=== PATIENT | male | born 1930 | race Caucasian/White ===

== ENCOUNTER 2017-03-06 08:45 | Emergency (ER) | payer OTHER ==
[~2017-03-06] VITALS: Ht 170.2 cm; Wt 83.9 kg
[~2017-03-06 08:45] MED LIST: ADVAIR 250-501 EACH INH; ALBUTEROL SULFAT3 M1 INH; AZITHROMYCIN250 MG PO; CENTRUM SILVER1 EAC3 PO; COUMADIN 2.5 M2.5 MG PO; COUMADIN 5 MG TA5 MG PO; COZAAR25 M1 PO; DEPO-TESTADIOL10 ML IM; FOLIC ACID1 M1 PO; LANSOPRAZOLE30 M2 PO; LASIX40 M1 PO; LOPRESSOR50 M1 PO; METHOTREXATE2.5 M2 PO; METHOTREXATE2.5 MG PO; NORVASC5 M1 PO; OSTEO BI-FLEX1 EAC1 PO; PRAVASTATIN SOD10 M2 PO; PREDNISONE10 MG PO; PREDNISONE5 M1 PO; PROAIR HFA8.5 GM INH; SYMBICORT 160/41 PUF INH; TUDORZA PR400 MCG/Ac INH; TUDORZA PRESS400 MCG IH; VALIUM2 MG PO; VICODIN5-300 PO; WARFARIN SODIUM2 MG PO; WARFARIN SODIUM5 M1 PO; [UNRECOGNIZED DRUG - REMARK]
[2017-03-06 08:52] VITALS: BP 156/81
--- NOTE | 2017-03-06 10:21 | RADIOLOGY REPORT ---
EXAMINATION: XR KNEE, LEFT CLINICAL INFORMATION: 86-year-old man with left knee pain. COMPARISON: None TECHNIQUE: Four views of the left knee. FINDINGS: There is no evidence of acute fracture. Alignment remains anatomic. There is extensive degenerative tricompartment osteophytosis as well as moderate loss of normal articular cartilage space. There is a moderate suprapatellar effusion and there may be some prepatellar swelling as well. IMPRESSION: No evidence of acute fracture or dislocation. Chronic osteoarthritic changes.
[2017-03-06] MEDS ORDERED: TROSPIUM CHLORI60 M1 PO (10:23)
[2017-03-06] MEDS ORDERED: COUMADIN2.5 M1 PO (10:24)
[2017-03-06] MEDS ORDERED: OXYBUTYNIN CHLO10 M1 PO (10:24)
--- NOTE | 2017-03-06 10:44 | ED UPPER/LOWER EXTREMITY COMPL ---
History of Present Illness General Chief Complaint: Laceration Procedure Stated Complaint: LAC TO LEG, BLEEDING SINCE LAST PM,ON THINNERS Source: patient, family Exam Limitations: no limitations Vital Signs & Intake/Output Vital Signs & Intake/Output Vital Signs Date Time Temp Pulse Resp B/P B/P Pulse O2 O2 Flow FiO2 Mean Ox Delivery Rate 03/06 0852 97.0 71 20 156/81 94 Room Air Allergies Coded Allergies: NO KNOWN ALLERGIES (02/05/15) Reconcile Medications Aclidinium [place] (Tudorza Pressair) 400 MCG AER.POW.BA 1 PUFF IH QPM COPD ( Reported) Albuterol Sulfate (Proair Hfa) 90 MCG HFA.AER.AD 2 PUF INH Q4-6 PRN PRN SHORTNESS OF BREATH (Reported) Amlodipine Besylate (Norvasc) 5 MG TABLET 1 TAB PO DAILY HEART (Reported) Fluticasone/Salmeterol (Advair 250-50 Diskus) 250 MCG-50 MCG/DOSE BLST.W.DEV 1 PUF INH BID COPD (Reported) Folic Acid 1 MG TABLET 1 TAB PO DAILY VITAMIN SUPPORT (Reported) Furosemide (Lasix) 40 MG TABLET 1 TAB PO DAILY WATER RETENTION (Reported) Lansoprazole 30 MG CAPSULE.DR 1 CAP PO DAILY GI (Reported) Losartan Potassium (Cozaar) 25 MG TABLET 0.5 TAB PO DAILY HEART (Reported) Methotrexate 2.5 MG TABLET 2 TAB PO QMON ARTHRITIS (Reported) Metoprolol Tartrate (Lopressor) 50 MG TABLET 1 TAB PO BID HEART (Reported) Multivit-Min/FA/Lycopen/Lutein (Centrum Silver Tablet) 0.4 MG-300 MCG-250 MCG TABLET 1 TAB PO DAILY SUPPLEMENT (Reported) Oxybutynin Chloride (Oxybutynin Chloride ER) 10 MG TAB.ER.24 1 TAB PO DAILY BLADDER (Reported) Pravastatin Sodium 10 MG TABLET 1 TAB PO DAILY CHOLESTEROL (Reported) Prednisone 5 MG TABLET 1 TAB PO DAILY ARTHRITIS (Reported) Trospium Chloride (Trospium Chloride ER) 60 MG CAP.ER.24H 1 CAP PO DAILY UNKNOWN (Reported) Warfarin Sodium (Coumadin) 2.5 MG TABLET 1 TAB PO 1700 BLOOD THINNER ( Reported) Triage Note: PT TO ED C/O LAC TO LEFT LEG. SUSTAINED YESTERDAY. PT IS ON COUMADIN. DRESSING APPLIED AT HOME LAST NIGHT. PT CONTINUES TO BLEED. UNKNOWN LAST TETANUS SHOT. LAC NOT SEEN IN TRIAGE. Triage Nurses Notes Reviewed? yes Onset: Abrupt Duration: day(s): (yesterday afternoon) Timing: recent history Severity: moderate, severe Pain/Injury Location: Left: Knee. Method of Injury: laceration No Modifying Factors: none HPI: 86-year-old male comes into emergency room for further evaluation of laceration to left knee. Patient reports that yesterday he was working out in the yard and apparently hit his left knee. Small cut. Tetanus shot up-to-date. Patient comes in today for further evaluation. Denies any fever chills. Denies any trauma anywhere else. Denies any numbness or tingling in his lower leg. Patient is on Coumadin. Last INR was 2.7. Denies any other system symptoms. (ROCKY ROJO) Past History Travel History Traveled to [place] past 21 day No Medical History Any Pertinent Medical History? see below for history Neurological: NONE EENT: NONE Cardiovascular: AFIB, hypertension, hyperlipidemia Respiratory: COPD, obstructive sleep apnea, LUNG INFECTION WITH BREATHING DIFF S /P O2 AT NIGHT Gastrointestinal: NONE Hepatic: NONE Renal: NONE Musculoskeletal: LEFT TOTAL HIP REPLACE. 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 No (ROCKY ROJO) Review of Systems Review of Systems Constitutional: Reports: no symptoms. EENTM: Reports: no symptoms. Respiratory: Reports: no symptoms. Cardiovascular: Reports: no symptoms. Gastrointestinal/Abdominal: Reports: no symptoms. Genitourinary: Reports: no symptoms. Musculoskeletal: Reports: no symptoms. Skin: Reports: see HPI. Neurological/Psychological: Reports: no symptoms. Hematologic/Endocrine: Reports: see HPI. Immunological: Reports: no symptoms. All Other Systems: Reviewed and Negative (ROCKY ROJO) Physical Exam Physical Exam General Appearance: well developed/nourished, mild distress Head: atraumatic Eyes: Bilateral: normal appearance. Ears, Nose, Throat: normal ENT inspection, hearing grossly normal Neck: normal inspection Cardiovascular/Respiratory: no respiratory distress Back: normal inspection Knee Left: 1.5 cm laceration to left knee, superficial, Neurologic/Tendon: normal sensation, normal motor functions, normal tendon functions, responds to pain, no evidence tendon injury Skin: intact, normal color, warm/dry Lymphatic: no anterior cervical alli (HARIKA MANZANO,ROCKY) Progress Differential Diagnosis: contusion, dislocation, DVT, fracture, gout, septic arthritis, sprain Plan of Care: Orders Procedure Date/time Status Durable Medical Equipment 03/06 1050 Active Departure Departure Disposition: HOME OR SELF CARE Condition: Stable Clinical Impression Primary Impression: Laceration of left knee Secondary Impressions: Arthritis Referrals: PAULO DOLAN MD (PCP/Family) Additional Instructions: Return in 7 days for suture removal. Watch for signs of infection such as redness swelling discharge fever chills. Please go over all results of today's visit with your primary care doctor. Contact your primary care doctor to let them know you were here in the emergency room. There may be nonspecific findings which may not be related to your visit today here in the emergency room but may require further evaluation and chronic monitoring by your primary care doctor. If you had a laceration today the chance of foreign body always remains. You should follow-up with your primary care doctor for recheck in 3-5 days for a wound check. If you had an x-ray done there is a chance that a fracture could have been missed on initial read and you should follow-up with your primary care doctor for repeat x-rays if symptoms persist. If your blood pressure was elevated here in the emergency room please have rechecked by her primary care doctor within the next 48 hours by your primary care doctor. If you were prescribed a narcotic here in the emergency room or any type of controlled substances you're not allowed to drive while taking this medication or operate any type of heavy machinery. Narcotics can make you feel lightheaded dizziness nausea and can cause constipation. You may need to pick up driver a stool softener. Thank you for choosing [facility] emergency room. Please return to the emergency room immediately if you have any other concerns worsening of symptoms. Departure Forms: Customer Survey General Discharge Information Comments 03/06/2017 11:16:[address] stitch loosely [address] and left knee. Patient will return for suture removal. Follow-up for wound check. Watch for signs of infections. Clinically looks well.closed up Within a 24-hour time frame. (ROCKY ROJO) PA/CITIZEN PARTICIPATION SPECIALIST Co-Sign Statement Statement: ED Attending supervision documentation- [X] I saw and evaluated the patient. I have also reviewed all the pertinent lab results and diagnostic results. I agree with the findings and the plan of care as documented in the PA's/CITIZEN PARTICIPATION SPECIALIST's documentation. [X] I have reviewed the ED Record and agree with the PA's/CITIZEN PARTICIPATION SPECIALIST's documentation. [] Additions or exceptions (if any) to the PAs/CITIZEN PARTICIPATION SPECIALIST's note and plan are summarized below: [] (MARIIA CABRAL,CHRISTEN Bajwa) Procedures Laceration/Wound Repair Progress: 1.5 cm laceration to left knee, irrigated with peroxide and saline, 4. 0 nylon, one suture placed, sterile technique, Performed by PA student with my supervision (ROCKY ROJO)
== END 2017-03-06 11:13 ==
LOC: ERH 08:45
DX: S81.012A Laceration without foreign body, left knee, initial encounter (principal); M19.90 Unspecified osteoarthritis, unspecified site; W22.8XXA Striking against or struck by other objects, initial encounter; Y93.89 Activity, other specified; Y92.009 Unspecified place in unspecified non-institutional (private) residence as the place of occurrence of the external cause
CPT/HCPCS: 73562-LT

== ENCOUNTER 2017-03-13 09:16 | Emergency (ER) | payer OTHER ==
[~2017-03-13 09:16] MED LIST changes: +COUMADIN2.5 M1 PO; +OXYBUTYNIN CHLO10 M1 PO; +TROSPIUM CHLORI60 M1 PO
[2017-03-13 09:20] VITALS: BP 136/77
--- NOTE | 2017-03-13 09:46 | ED ANIMAL BITE/WOUND CHECK ---
History of Present Illness General Chief Complaint: Suture Removal/Wound Recheck Stated Complaint: SUTURE REMOVAL Source: patient, family, old records Exam Limitations: no limitations Vital Signs & Intake/Output Vital Signs & Intake/Output Vital Signs Date Time Temp Pulse Resp B/P B/P Pulse O2 O2 Flow FiO2 Mean Ox Delivery Rate 03/13 0920 97.4 92 18 136/77 95 Room Air Room Air (CHAUNCEY HERNANDES MD) Allergies Coded Allergies: NO KNOWN ALLERGIES (02/05/15) Reconcile Medications Aclidinium [place] (Tudorza Pressair) 400 MCG AER.POW.BA 1 PUFF IH QPM COPD ( Reported) Albuterol Sulfate (Proair Hfa) 90 MCG HFA.AER.AD 2 PUF INH Q4-6 PRN PRN SHORTNESS OF BREATH (Reported) Amlodipine Besylate (Norvasc) 5 MG TABLET 1 TAB PO DAILY HEART (Reported) Fluticasone/Salmeterol (Advair 250-50 Diskus) 250 MCG-50 MCG/DOSE BLST.W.DEV 1 PUF INH BID COPD (Reported) Folic Acid 1 MG TABLET 1 TAB PO DAILY VITAMIN SUPPORT (Reported) Furosemide (Lasix) 40 MG TABLET 1 TAB PO DAILY WATER RETENTION (Reported) Lansoprazole 30 MG CAPSULE.DR 1 CAP PO DAILY GI (Reported) Losartan Potassium (Cozaar) 25 MG TABLET 0.5 TAB PO DAILY HEART (Reported) Methotrexate 2.5 MG TABLET 2 TAB PO QMON ARTHRITIS (Reported) Metoprolol Tartrate (Lopressor) 50 MG TABLET 1 TAB PO BID HEART (Reported) Multivit-Min/FA/Lycopen/Lutein (Centrum Silver Tablet) 0.4 MG-300 MCG-250 MCG TABLET 1 TAB PO DAILY SUPPLEMENT (Reported) Oxybutynin Chloride (Oxybutynin Chloride ER) 10 MG TAB.ER.24 1 TAB PO DAILY BLADDER (Reported) Pravastatin Sodium 10 MG TABLET 1 TAB PO DAILY CHOLESTEROL (Reported) Prednisone 5 MG TABLET 1 TAB PO DAILY ARTHRITIS (Reported) Trospium Chloride (Trospium Chloride ER) 60 MG CAP.ER.24H 1 CAP PO DAILY UNKNOWN (Reported) Warfarin Sodium (Coumadin) 2.5 MG TABLET 1 TAB PO 1700 BLOOD THINNER ( Reported) Triage Note: TRIAGE: 86 Y/O MALE PRESENTS FOR REMOVAL OF 1 SUTURE PLACED 1 WEEK AGO. SITE APPEARS TO BE HEALING AT PRESENT. Triage Nurses Notes Reviewed? yes Onset: Last week Duration: better Timing: recent history Injury Environment: home Is Injury an Animal Bite? No Severity: mild No Modifying Factors: none HPI: Days prior to admission patient sustained laceration to left salgado requiring suture. There was no fever chills nausea vomiting diarrhea abdominal pain chest pain shortness of breath headache dysuria bleeding wound dehiscence discharge. Past History Travel History Traveled to [place] past 21 day No Medical History Any Pertinent Medical History? see below for history Neurological: NONE EENT: NONE Cardiovascular: AFIB, hypertension, hyperlipidemia Respiratory: COPD, obstructive sleep apnea, LUNG INFECTION WITH BREATHING DIFF S /P O2 AT NIGHT Gastrointestinal: NONE Hepatic: NONE Renal: NONE Musculoskeletal: LEFT TOTAL HIP REPLACE. 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 No Review of Systems Review of Systems Constitutional: Reports: no symptoms. EENTM: Reports: no symptoms. Respiratory: Reports: no symptoms. Cardiovascular: Reports: no symptoms. GI: Reports: no symptoms. Genitourinary: Reports: no symptoms. Musculoskeletal: Reports: no symptoms. Skin: Reports: no symptoms. Neurological/Psychological: Reports: no symptoms. Hematologic/Endocrine: Reports: no symptoms. Immunologic/Allergic: Reports: no symptoms. All Other Systems: Reviewed and Negative Physical Exam Physical Exam General Appearance: well developed/nourished, mild distress Head: atraumatic Eyes: Bilateral: PERRL, EOMI. Ears, Nose, Throat: normal pharynx, normal ENT inspection, hearing grossly normal Neck: normal inspection, supple Respiratory: normal breath sounds Cardiovascular: regular rate/rhythm Gastrointestinal: soft, non-tender Back: normal inspection Extremities: normal range of motion Neurologic/Psych: awake, alert, oriented x 3, normal mood/affect Skin: normal color, warm/dry, sutures intact wound healing well Lymphatic: no anterior cervical alli Progress Differential Diagnosis: abscess, cellulitis Plan of Care: Suture removal times one without complication Departure Departure Time of Disposition: 944 Disposition: HOME OR SELF CARE Condition: Stable Clinical Impression Primary Impression: Visit for suture removal Referrals: PAULO DOLAN MD (PCP/Family) Departure Forms: Customer Survey General Discharge Information
== END 2017-03-13 09:36 ==
LOC: ERH 09:16
DX: S81.812A Laceration without foreign body, left lower leg, initial encounter (principal); X58.XXXA Exposure to other specified factors, initial encounter; Y92.9 Unspecified place or not applicable; Y93.9 Activity, unspecified
CPT/HCPCS: 99281

== ENCOUNTER 2017-03-24 11:45 | Inpatient (IN) | payer OTHER ==
[~2017-03-24] VITALS: Ht 167.6 cm; Wt 83.9 kg
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
--- NOTE | 2017-03-24 12:15 | NUR ---
LABS DRAWN AND SENT BY THIS [facility]. BLUE,SST,LAV,PINK.
[2017-03-24 12:19] LABS: ABSOLUTE BASOPHIL COUNT 0 /CUMM (0.0-0.2); ABSOLUTE EOSINOPHIL COUNT 0 /CUMM (0.0-0.7); ABSOLUTE GRANULOCYTE CT 7.3 /CUMM (1.4-6.5); ABSOLUTE LYMPH COUNT 0.8 /CUMM (1.2-3.4); ABSOLUTE MONOCYTE COUNT 0.4 /CUMM (0.10-0.60); BASOPHIL % 0.1 % (0.0-2.0); EOSINOPHIL % 0 % (0-5); HEMATOCRIT 34.4 % (42-52); MEAN CORPUSCULAR HGB 29.4 PG (27.0-31.0); MEAN CORPUSCULAR HGB CONC 32.6 G/DL (33.0-37.0); MEAN CORPUSCULAR VOLUME 90.1 FL (80.0-94.0); MEAN PLATELET VOLUME 7.5 FL (7.4-10.4); PLATELET COUNT 255 /CUMM (130-400); RBC DISTRIBUTION WIDTH 18.8 % (11.5-14.5); RED BLOOD CELL CT 3.82 /CUMM (4.70-6.10); WHITE BLOOD CELL COUNT 8.5 /CUMM (4.8-10.8)
[2017-03-24 12:52] LABS: PT > 103.0 SEC (9.4-12.5)
--- NOTE | 2017-03-24 14:59 | NUR ---
PT TO ER ROOM 17 AT THIS TIME WITH FAMILY
--- NOTE | 2017-03-24 15:01 | NUR ---
MD TO BEDSIDE FOR EVAL
--- NOTE | 2017-03-24 15:09 | NUR ---
RESP PAGED FOR TREATMENT AT THIS TIME
--- NOTE | 2017-03-24 15:11 | ED GENERAL ADULT ---
History of Present Illness General Chief Complaint: Laceration Procedure Stated Complaint: "LAC TO L KNEE WONT STOP BLEEDING",+BLOOD THINNERS Source: patient, family Exam Limitations: no limitations Vital Signs & Intake/Output Vital Signs & Intake/Output Vital Signs Date Time Temp Pulse Resp B/P B/P Pulse O2 O2 Flow FiO2 Mean Ox Delivery Rate 03/24 1607 98.6 60 18 132/86 98 Room Air 03/24 1202 97.5 70 16 121/67 97 Room Air Allergies Coded Allergies: NO KNOWN ALLERGIES (02/05/15) Reconcile Medications Aclidinium [place] (Tudorza Pressair) 400 MCG AER.POW.BA 1 PUFF IH QPM COPD ( Reported) Albuterol Sulfate (Proair Hfa) 90 MCG HFA.AER.AD 2 PUF INH Q4-6 PRN PRN SHORTNESS OF BREATH (Reported) Amlodipine Besylate (Norvasc) 5 MG TABLET 1 TAB PO DAILY HEART (Reported) Fluticasone/Salmeterol (Advair 250-50 Diskus) 250 MCG-50 MCG/DOSE BLST.W.DEV 1 PUF INH BID COPD (Reported) Folic Acid 1 MG TABLET 1 TAB PO DAILY VITAMIN SUPPORT (Reported) Furosemide (Lasix) 40 MG TABLET 1 TAB PO DAILY WATER RETENTION (Reported) Lansoprazole 30 MG CAPSULE.DR 1 CAP PO DAILY GI (Reported) Losartan Potassium (Cozaar) 25 MG TABLET 0.5 TAB PO DAILY HEART (Reported) Methotrexate 2.5 MG TABLET 2 TAB PO QMON ARTHRITIS (Reported) Metoprolol Tartrate (Lopressor) 50 MG TABLET 1 TAB PO BID HEART (Reported) Multivit-Min/FA/Lycopen/Lutein (Centrum Silver Tablet) 0.4 MG-300 MCG-250 MCG TABLET 1 TAB PO DAILY SUPPLEMENT (Reported) Oxybutynin Chloride (Oxybutynin Chloride ER) 10 MG TAB.ER.24 1 TAB PO DAILY BLADDER (Reported) Pravastatin Sodium 10 MG TABLET 1 TAB PO DAILY CHOLESTEROL (Reported) Prednisone 5 MG TABLET 1 TAB PO DAILY ARTHRITIS (Reported) Trospium Chloride (Trospium Chloride ER) 60 MG CAP.ER.24H 1 CAP PO DAILY UNKNOWN (Reported) Warfarin Sodium (Coumadin) 2.5 MG TABLET 1 TAB PO 1700 BLOOD THINNER ( Reported) Triage Note: PT WAS SEEN HERE ON THE OF LAST MONTH BECAUSE HE WAS HIT IN THE KNEE AND HAD A STICH PUT IN. PT STATES HE IS FEELING WEAK FROM THE BLOOD LOSS. PT STATES HE IS ON COUMADIN AND IT HAS NOT STOPPED BLEEDING SINCE THEY TOOK THE STICH OUT. Triage Nurses Notes Reviewed? yes HPI: Mr. Romero is a 86 yo w/ PMH hypertension, hyperlipidemia, A. fib on Coumadin, COPD , IRMA, prostate cancer presenting to the emergency department for left knee bleeding and pain. Patient states that approximately 2 weeks ago he was working in a barn when something hit him in the knee causing a small laceration. Patient was seen in the emergency department where he had sutures placed. He came back later to have the sutures removed. Today the patient bent down to pick something up with that knee and the wound started bleeding again pretty profusely. His put on some gauze and the bleeding soaked directly through the gauze. The patient has also noted that he had increased knee swelling as well as pain with decreased range of motion over the past 2 weeks. His states that he has not taken his Coumadin over the past 2 nights as he was told not to. Patient denies fever, chills, chest pain, shortness of breath, bowel pain, nausea, vomiting, diarrhea. also noted that she saw nailbed cyanosis while at triage as they were obtaining his vitals. Past History Travel History Traveled to [place] past 21 day No Medical History Any Pertinent Medical History? see below for history Neurological: NONE EENT: NONE Cardiovascular: AFIB, hypertension, hyperlipidemia Respiratory: COPD, obstructive sleep apnea, LUNG INFECTION WITH BREATHING DIFF S /P O2 AT NIGHT Gastrointestinal: NONE Hepatic: NONE Renal: NONE Musculoskeletal: LEFT TOTAL HIP REPLACE. L HIP DISLOCATION Psychiatric: NONE Endocrine: NONE Blood Disorders: NONE Cancer(s): prostate cancer EXCEL DEVELOPER/Reproductive: NONE History of MRSA: No History of VRE: No History of CDIFF: No Surgical History Surgical History: CABG, LEFT HIP REPLACEMENT Psychosocial History Who do you live with Spouse What is your primary language Upper Sorbian Tobacco Use: Never used ETOH Use: denies use Illicit Drug Use: denies illicit drug use Family History Hx Contributory? No Review of Systems Review of Systems Constitutional: Reports: see HPI. EENTM: Reports: no symptoms. Respiratory: Reports: no symptoms. Cardiovascular: Reports: no symptoms. GI: Reports: no symptoms. Genitourinary: Reports: no symptoms. Musculoskeletal: Reports: joint pain (L knee), joint swelling (L knee). Skin: Reports: see HPI. Neurological/Psychological: Reports: no symptoms. Hematologic/Endocrine: Reports: bleeding. Immunologic/Allergic: Reports: no symptoms. All Other Systems: Reviewed and Negative Physical Exam Physical Exam General Appearance: well developed/nourished, no apparent distress, alert, awake , comfortable Head: atraumatic, normal appearance Eyes: Bilateral: normal appearance, PERRL, EOMI. Ears, Nose, Throat: normal pharynx, normal ENT inspection, hearing grossly normal Neck: normal inspection, supple, full range of motion Respiratory: normal breath sounds, chest non-tender, no respiratory distress Cardiovascular: regular rate/rhythm Gastrointestinal: normal bowel sounds, soft, non-tender Rectal: deferred Back: normal inspection, normal range of motion Extremities: normal inspection, swelling (L knee), decreased range of motion secondary to pain. Left knee more swollen than right knee. Neurologic/Psych: no motor/sensory deficits, awake, alert, oriented x 3, normal gait, normal mood/affect Skin: 1 cm laceration to left anterior knee. No surrounding erythema or signs of infection. Small amount of bleeding noted from the site. Core Measures ACS in differential dx? No CVA/TIA Diagnosis: No Severe Sepsis Present: No Septic Shock Present: No Progress Differential Diagnoses I considered the following diagnoses in my evaluation of the patient: Hypercoagulopathy, hemarthrosis, cellulitis, anemia Plan of Care: Orders Procedure Date/time Status Heart Healthy Diet 03/25 B Active Transfer patient to 03/24 173 Active ED Holding Orders 03/24 1739 Active Patient Data 03/24 1739 Active Vital Signs 03/24 1739 Active Code Status 03/24 1739 Active Admit to inpatient 03/24 1641 Active MIXED VENOUS BLOOD GAS (GEN) 03/24 1514 Active EKG 03/24 1514 Active COMPREHENSIVE METABOLIC PANEL 03/24 1203 Complete CBC WITHOUT DIFFERENTIAL 03/24 1203 Complete PROTHROMBIN TIME 03/24 1150 Complete Laboratory Tests 03/24/17 1525: Bicarbonate Actual 25, Mixed VBG pH 7.39, Mixed VBG pCO2 42, Mixed VBG O2 Saturation 19 L, Carboxyhemoglobin 0.5 L, O2 Concentration % RA, Phlebotomy Draw Site LAC 03/24/17 1212: Anion Gap 14, Estimated GFR 39 L, BUN/Creatinine Ratio 24.7, Glucose 137 H, Calcium 8.9, Total Bilirubin 0.9, AST 35, ALT 30, Alkaline Phosphatase 86, Total Protein 6.4, Albumin 3.7, Globulin 2.7, Albumin/Globulin Ratio 1.4, PT > 103.0 * H, INR > 10.0 *H, CBC w Diff NO MAN DIFF REQ, RBC 3.82 L, MCV 90.1, MCH 29.4, RDW 18.8 H, MPV 7.5, Gran % 86.0 H, Lymphocytes % 9.2 L, Monocytes % 4.7, Eosinophils % 0, Basophils % 0.1, Absolute Granulocytes 7.3 H, Absolute Lymphocytes 0.8 L, Absolute Monocytes 0.4, Absolute Eosinophils 0, Absolute Basophils 0, PUBS MCHC 32.6 L Patient is otherwise well-appearing. He is on Coumadin with an INR that is greater than 10 today. Some active bleeding noted from the site however the bleeding did stop with gauze as well as Jeff bandage application for some compression. Patient noted to have significant swelling. Likely he has hemarthrosis that is causing both pain and decrease in range of motion. Orthopedics consulted here in the emergency department who did not feel that the patient needed an emergent arthrocentesis. Recommended arthrocentesis be performed by ED physician or interventional radiology. I do not feel that the patient requires an arthrocentesis to be done by IR at this point in time. I also do not feel it is the best interest of the patient for me to perform the arthrocentesis given the elevated INR for concern possibly causing a hemarthrosis. Despite being off his Coumadin for 2 nights, the patient's INR is still greater than 10. He does a very minor bump in his creatinine. This is likely the cause of the elevated INR. Patient given vitamin K here in the emergency department to reverse INR. He will need frequent INR checks as well as assessment for possible anemia as an inpatient. Patient will also likely require an orthopedic consult. In addition on clinical examination, the patient was noted to be positive for shortness of breath in between speaking to staff. The also stated that she noted some cyanosis at his nail beds. This is new for him. He does have known severe COPD but is not on oxygen at baseline. She states his normal O2 sat is 92%. On clinical exam patient's breath sounds were slightly decreased all over. Given DuoNeb as well as Solu-Medrol for possible COPD exacerbation. We'll obtain basic labs and chest x-ray to assess for possible pneumonia. Chest x-ray otherwise negative. Patient states his shortness of breath improved some after the breathing treatment. No indication for antibiotics at this point in time. Discussed with his primary care doctor who agrees that the patient will likely need to be admitted at least forearms overnight to check PT/INR and crit in the morning as well as keep an eye on the bleeding status of the knee. (JIE CABRAL,CONRAD) Diagnostic Imaging: Viewed by Me: Radiology Read. Discussed w/RAD: Radiology Read. Radiology Impression: no acute abnormality CXR Impression: No acute pulmonary findings. Large hiatal hernia. Initial ED EKG: pacemaker rhythm (ventricular paced rhythm) Departure Departure Time of Disposition: 1808 Disposition: STILL A PATIENT Condition: Stable Clinical Impression Primary Impression: Hypercoagulable state Secondary Impressions: Knee laceration Qualifiers: Encounter type: subsequent encounter Laterality: left Qualified Code: S81.012D - Laceration without foreign body, left knee, subsequent encounter SOB (shortness of breath) Referrals: PAULO DOLAN MD (PCP/Family) Departure Forms: Customer Survey General Discharge Information Admission Note Spoke With: PAULO DOLAN MD Documentation of Exam: Documentation of any treatments & extenuating circumstances including Concerns Regarding Discharge (functional status, medication knowledge or non-compliance, living conditions, etc.) that warrant an admission rather than observation: Observation Note Rationale for Observation: My rational for observation is as follows . Patient will likely need inpatient admission for hypercoagulable state. Given the fact that he's been off his Coumadin for 2 days and his INR remains to be greater than 10, I believe he it will take more than just one day to lower his INR to a safe acceptable amount. If the patient falls with an INR greater than 10 she could have a life-threatening intracranial hemorrhage or fracture or bleed to . Critical Care Note Critical Care Note Critical Care Time: non-applicable
--- NOTE | 2017-03-24 15:29 | NUR ---
RESP AT BEDSIDE FOR TREATMENT MEDICATED PER EMAR AT THIS TIME
--- NOTE | 2017-03-24 15:40 | NUR ---
PT TO AND FROM XRAY
--- NOTE | 2017-03-24 16:10 | RADIOLOGY REPORT ---
EXAMINATION: XR CHEST CLINICAL INFORMATION: Shortness of breath. Peripheral cyanosis. COMPARISON: 01/12/2017 TECHNIQUE: 2 views of the chest were obtained. FINDINGS: Left chest wall single-lead pacer is unchanged. There are low lung volumes with elevation of the right hemidiaphragm. Patchy retrocardiac opacity is noted. This is likely associated with a large hiatal hernia. No new consolidation. No pneumothorax. No pleural effusion. The cardiomediastinal silhouette is unchanged. Degenerative changes of the spine and shoulders. Chronic rotator cuff disease bilaterally. IMPRESSION: No acute pulmonary findings. Large hiatal hernia.
--- NOTE | 2017-03-24 16:18 | NUR ---
DR DOLAN BEING CONSULTED
--- NOTE | 2017-03-24 17:21 | NUR ---
MD TO BEDSIDE TO DICUSS PLAN OF CARE WITH PT AND
--- NOTE | 2017-03-24 17:40 | Admission Certification ---
Admission Certification Certification Statement - As attending physician, I certify that at the time of - admission, based on clinical presentation, severity of - symptoms, need for further diagnostic testing and - therapeutic interventions, and risk of adverse outcomes - without in-hospital treatment, in my clinical assessment, - this patient requires an acute hospital stay for a minimum - of two nights or longer. I have also considered psychsocial - factors such as support system, advanced age, financial - issues, cognitive issues, and failed out-patient treatments, - past re-admission history, safety of patient, and lack of - compliance as applicable. Specific rationale supporting this admission is: bleeding laceration knee with supratherapeutic INR and risk of more bleeding.
--- NOTE | 2017-03-24 17:44 | PN- Att Addend ---
Attending Addendum Attending Brief Note 86 year old male recent laceration of knee patient on coumadin that he has not taken in 2 days but INR still very high need to monitor Had vitamin K follow up INRs ortho to evaluate patient in am also follow H/H closely. Vital Signs Date Time Temp Pulse Resp B/P B/P Pulse O2 O2 Flow FiO2 Mean Ox Delivery Rate 03/24 1607 98.6 60 18 132/86 98 Room Air 03/24 1202 97.5 70 16 121/67 97 Room Air Last 24 Hours I&Os 03/24 1600 03/24 0800 03/24 0000 Intake Total Output Total Balance Patient 185 lb Weight Weight Reported by Patient Measurement Method Laboratory Tests 03/24/17 1525: Bicarbonate Actual 25, Mixed VBG pH 7.39, Mixed VBG pCO2 42, Mixed VBG O2 Saturation 19 L, Carboxyhemoglobin 0.5 L, O2 Concentration % RA, Phlebotomy Draw Site LAC 03/24/17 1212: Anion Gap 14, Estimated GFR 39 L, BUN/Creatinine Ratio 24.7, Glucose 137 H, Calcium 8.9, Total Bilirubin 0.9, AST 35, ALT 30, Alkaline Phosphatase 86, Total Protein 6.4, Albumin 3.7, Globulin 2.7, Albumin/Globulin Ratio 1.4, PT > 103.0 * H, INR > 10.0 *H, CBC w Diff NO MAN DIFF REQ, RBC 3.82 L, MCV 90.1, MCH 29.4, RDW 18.8 H, MPV 7.5, Gran % 86.0 H, Lymphocytes % 9.2 L, Monocytes % 4.7, Eosinophils % 0, Basophils % 0.1, Absolute Granulocytes 7.3 H, Absolute Lymphocytes 0.8 L, Absolute Monocytes 0.4, Absolute Eosinophils 0, Absolute Basophils 0, PUBS MCHC 32.6 L Orders Procedure Date/time Status Heart Healthy Diet 03/25 B Active Transfer patient to 03/24 1739 Active ED Holding Orders 03/24 1739 Active Patient Data 03/24 1739 Active Vital Signs 03/24 1739 Active Code Status 03/24 1739 Active Admit to inpatient 03/24 1641 Active MIXED VENOUS BLOOD GAS (GEN) 03/24 1514 Active EKG 03/24 1514 Active COMPREHENSIVE METABOLIC PANEL 03/24 1203 Complete CBC WITHOUT DIFFERENTIAL 03/24 1203 Complete PROTHROMBIN TIME 03/24 1150 Complete
--- NOTE | 2017-03-24 18:20 | NUR ---
Emergency Dept UC Admit Note: To be admitted to [facility] by DR DOLAN with HEMARTHOSIS as the diagnosis, to [facility] location. Nursing Distribution Center Manager and admitting notified 03/24/17 at 1744 PT WILL GO TO ROOM [phone]
--- NOTE | 2017-03-24 19:01 | NUR ---
PT EATING DINNER TRAY AT THIS TIME AWRE OF PLAN OF ADMISSION
--- NOTE | 2017-03-24 19:20 | NUR ---
REPORT GIVEN TO THUY
--- NOTE | 2017-03-24 19:20 | NUR ---
NURSE NOTE: REPORT RECEIVED FROM MAGUE IN ED. WILL BE GOING TO RM [id number]
[2017-03-24 20:22] VITALS: BP 140/74
--- NOTE | 2017-03-24 21:03 | NUR ---
2021 PATIENT ARRIVED TO FLOOR. A + O X 3. ON ROOM AIR. LUNG SOUNDS CLEAR. DENIES SHORTNESS OF BREATH VITAL SIGNS STABLE. DENIES CHEST PAIN. + PULSES. LCW PACEMAKER SKIN C/D/I. BLEEDING PRECAUTIONS. + 1 EDEMA TO L KNEE. STERI STRIPS TO L KNEE. STEADY GAIT WITH CANE. INCONTINENT. NO DISCOMFORT NOTED. BED LOW AND LOCKED. CALL LIGHT WITHIN REACH. WILL CONTINUE TO MONITOR
--- NOTE | 2017-03-24 21:40 | History & Physical ---
See Addendum General Information and HPI MD Statement: I have seen and personally examined FLAKITO ARCINIEGA and documented this H&P. The patient is a 86 year old M who presented with a patient stated chief complaint of [86-year-old man who had a injury to his left knee after he was driving a tractor and he ran over a clothes line then it whiped him in the left knee. He subsequently developed a laceration that was sutured. Approximately 48 hours ago the suture was removed, the patient bent over and he started to bleed and developed swelling to the left knee. He is on Coumadin for atrial fibrillation. He has not taken the Coumadin for the past 48 hours. His INR today was >10. He denies other complaints. He does have a history of COPD.]. Source of Information: patient Exam Limitations: no limitations History of Present Illness: The patient sustained a significant injury to the left knee that was sutured. He subsequently developed a hemarthrosis. His INR is greater than 10. He will be seen by orthopedics in the a.m.. He has significant intractable pain and gait instability. Allergies/Medications Allergies: Coded Allergies: NO KNOWN ALLERGIES (02/05/15) Home Med list Aclidinium [place] (Tudorza Pressair) 400 MCG AER.POW.BA 1 PUFF IH QPM COPD ( Reported) Albuterol Sulfate (Proair Hfa) 90 MCG HFA.AER.AD 2 PUF INH Q4-6 PRN PRN SHORTNESS OF BREATH (Reported) Amlodipine Besylate (Norvasc) 5 MG TABLET 1 TAB PO DAILY HEART (Reported) Fluticasone/Salmeterol (Advair 250-50 Diskus) 250 MCG-50 MCG/DOSE BLST.W.DEV 1 PUF INH BID COPD (Reported) Folic Acid 1 MG TABLET 1 TAB PO DAILY VITAMIN SUPPORT (Reported) Furosemide (Lasix) 40 MG TABLET 1 TAB PO DAILY WATER RETENTION (Reported) Lansoprazole 30 MG CAPSULE.DR 1 CAP PO DAILY GI (Reported) Losartan Potassium (Cozaar) 25 MG TABLET 0.5 TAB PO DAILY HEART (Reported) Methotrexate 2.5 MG TABLET 2 TAB PO QMON ARTHRITIS (Reported) Metoprolol Tartrate (Lopressor) 50 MG TABLET 1 TAB PO BID HEART (Reported) Multivit-Min/FA/Lycopen/Lutein (Centrum Silver Tablet) 0.4 MG-300 MCG-250 MCG TABLET 1 TAB PO DAILY SUPPLEMENT (Reported) Oxybutynin Chloride (Oxybutynin Chloride ER) 10 MG TAB.ER.24 1 TAB PO DAILY BLADDER (Reported) Pravastatin Sodium 10 MG TABLET 1 TAB PO DAILY CHOLESTEROL (Reported) Prednisone 5 MG TABLET 1 TAB PO DAILY ARTHRITIS (Reported) Trospium Chloride (Trospium Chloride ER) 60 MG CAP.ER.24H 1 CAP PO DAILY UNKNOWN (Reported) Warfarin Sodium (Coumadin) 2.5 MG TABLET 1 TAB PO 1700 BLOOD THINNER ( Reported) Past History Travel History Traveled to [place] past 21 day No Medical History Blood Transfusion Hx: Yes Neurological: NONE EENT: NONE Cardiovascular: AFIB, hypertension, hyperlipidemia Respiratory: COPD, obstructive sleep apnea, LUNG INFECTION WITH BREATHING DIFF S /P Gastrointestinal: NONE, constipation Hepatic: NONE Renal: NONE Musculoskeletal: rheumatoid arthritis, LEFT TOTAL HIP REPLACE. Psychiatric: NONE Endocrine: NONE Blood Disorders: NONE Cancer(s): prostate cancer BACK FACER/Reproductive: NONE History of MRSA: No History of VRE: No History of CDIFF: No Isolation History: Standard Surgical History Surgical History: CABG, LEFT HIP REPLACEMENT R KNEE REPAIR PACEMAKER HERNIA REPAIRS Past Family/Social History Family History Relations & Conditions if any Family history was reviewed; no changes noted. Psychosocial History Where do you live? Home Who Do You Live With? spouse Services at Home: None Primary Language: Georgian Smoking Status: Unknown If Ever Smoked ETOH Use: denies use Illicit Drug Use: denies illicit drug use Living Will? unknown Functional Ability ADLs Independent: dressing, eating, toileting, bathing. Ambulation: independent IADLs Independent: shopping, housework, finances, food prep, telephone, transportation , medication admin. Review of Systems Review of Systems Constitutional: Denies: fever. EENTM: Denies: visual changes. Cardiovascular: Denies: chest pain. Respiratory: Reports: short of breath. GI: Denies: abdominal pain. Genitourinary: Reports: no symptoms. Musculoskeletal: Reports: see HPI. Skin: Reports: see HPI. Neurological/Psychological: Reports: no symptoms. Hematologic/Endocrine: Reports: bleeding. Immunologic/Allergic: Reports: no symptoms. All Other Systems: Reviewed and Negative Exam & Diagnostic Data Last 24 Hrs of Vital Signs/I&O Vital Signs Date Time Temp Pulse Resp B/P B/P Pulse O2 O2 Flow FiO2 Mean Ox Delivery Rate 03/24 2022 98.0 85 20 140/74 94 Room Air 03/24 2022 94 Room Air 03/24 1922 97.3 61 20 118/58 95 Room Air 03/24 1607 98.6 60 18 132/86 98 Room Air 03/24 1202 97.5 70 16 121/67 97 Room Air Intake & Output 03/24 1600 03/24 0800 03/24 0000 Intake Total Output Total Balance Patient 185 lb Weight Weight Reported by Patient Measurement Method In general he is in mild distress HEENT-normcephalic and atraumatic Neck is supple Heart is irregularly irregular Lungs are clear Abdomen is soft and nontender He does have significant swelling and decreased range of motion to the left knee. The left knee is not warm. He has an excellent left dorsalis pedis pulse He has a Steri-Stripped laceration that is not actively bleeding to the left knee Neuro. exam: He is awake alert and oriented 3, he has no focal weakness Physical Exam General Appearance Alert, Oriented X3, Cooperative Skin No Rashes Skin Temp/Moisture Exam: Warm/Dry Sepsis Skin Exam (color): Normal for Ethnicity HEENT Atraumatic, PERRLA, EOMI Neck Supple Lymphatic Axillary nl Cardiovascular iregular Lungs Clear to Auscultation Abdomen Soft, No Tenderness Neurological Normal Speech Extremities tenderness and swelling to the left knee Vascular Normal Pulses Diagnostic Data EKG Results paced beats, unchanged CXR Results napd Assessment/Plan Assessment: Hemarthrosis of the left knee with gait instability Chronic A. fib Coumadin induced coagulopathy Repeat CBCs, monitor for bleeding, orthopedic consultation in the a.m. As Ranked By This Provider Problem List: 1. Warfarin-induced coagulopathy Core Measures/Miscellaneous Acute Coronary Syndrome ACS Diagnosis: No Cerebrovascular Accident CVA/TIA Diagnosis: No Congestive Heart Failure CHF Diagnosis: No Venous Thromboembolism VTE Risk Factors: Acute medical illness, Age > 40 [facility] prophylaxis d/t: No contraindications No VTE Pharm Prophylaxis d/t: Active bleeding, Anticoagulation not иван, Blood coag disorder VTE Diagnosis: No VTE Type: NONE VTE Confirmed by (Test): NONE Severe Sepsis Severe Sepsis Present: No Septic Shock Septic Shock Present: No Miscellaneous Documentation Attending Case Discussed With: PAULO DOLAN MD Primary Care Physician: PAULO DOLAN MD Patient sees these Specialists Level of Patient Care: General Medicine
[2017-03-24 23:00] VITALS: BP 120/70
[2017-03-25 07:42] VITALS: BP 124/70
[2017-03-25 07:56] LABS: ABSOLUTE BASOPHIL COUNT 0 /CUMM (0.0-0.2); ABSOLUTE EOSINOPHIL COUNT 0 /CUMM (0.0-0.7); ABSOLUTE GRANULOCYTE CT 4.6 /CUMM (1.4-6.5); ABSOLUTE LYMPH COUNT 0.3 /CUMM (1.2-3.4); ABSOLUTE MONOCYTE COUNT 0.1 /CUMM (0.10-0.60); BASOPHIL % 0 % (0.0-2.0); EOSINOPHIL % 0 % (0-5); HEMATOCRIT 32.4 % (42-52); MEAN CORPUSCULAR HGB 29.2 PG (27.0-31.0); MEAN CORPUSCULAR HGB CONC 32.6 G/DL (33.0-37.0); MEAN CORPUSCULAR VOLUME 89.6 FL (80.0-94.0); MEAN PLATELET VOLUME 7.9 FL (7.4-10.4); PLATELET COUNT 220 /CUMM (130-400); RBC DISTRIBUTION WIDTH 18.9 % (11.5-14.5); RED BLOOD CELL CT 3.62 /CUMM (4.70-6.10)
[2017-03-25 08:54] LABS: PT 76.5 SEC (9.4-12.5)
[2017-03-25 09:06] LABS: GRANULOCYTE % 90.9 % (42.2-75.2)
--- NOTE | 2017-03-25 10:40 | PN- Housestaff ---
Subjective Follow-up For: Left knee hemarthrosis; supratherapeutic INR Complaints: no complaints Subjective: I followed up and examined the patient today. He is resting comfortably in bed, not in distress, no bleeding from his left knee which is not dressed, vitals have been stable, no overnight issues. Review of Systems Constitutional: Reports: no symptoms. Objective Last 24 Hrs of Vital Signs/I&O Vital Signs Date Time Temp Pulse Resp B/P B/P Pulse O2 O2 Flow FiO2 Mean Ox Delivery Rate 03/25 1433 98.0 65 20 128/64 94 03/25 1125 78 156/72 03/25 1124 78 156/72 03/25 1123 78 156/72 03/25 0742 97.7 66 18 124/70 95 Room Air 03/24 2309 85 120/70 03/24 2300 98.6 85 20 120/70 92 Room Air 03/24 2022 98.0 85 20 140/74 94 Room Air 03/24 2022 94 Room Air Intake & Output 03/25 1600 03/25 0800 03/25 0000 Intake Total 360 480 150 Output Total Balance 360 480 150 Intake, Oral 360 480 150 Patient 83.915 kg Weight Physical Exam General Appearance: Alert, Oriented X3, Cooperative, No Acute Distress Other Physical Findings: HEENT-normcephalic and atraumatic Neck is supple Heart is irregularly irregular Lungs are clear Abdomen is soft and nontender He does have significant swelling and decreased range of motion to the left knee. The left knee is not warm. There is a heling wound over his left knee with no active bleeding. He has an excellent left dorsalis pedis pulse Neuro exam: He is awake alert and oriented 3, he has no focal weakness Current Medications: Current Medications Sig/Latesha Start time Last Medication Dose Route Stop Time Status Admin Acetaminophen 650 MG Q6P PRN 03/24 2145 AC PO Albuterol Sulfate 2 PUF Q4-6 PRN PRN 03/24 2145 AC INH Amlodipine Besylate 5 MG DAILY 03/25 1000 AC 03/25 PO 112 Budesonide/ 2 PUF BID 03/25 1000 AC 03/25 Formoterol Fumarate INH 1124 Folic Acid 1 MG DAILY 03/25 1000 AC 03/25 PO 1123 Furosemide 40 MG DAILY 03/25 1000 AC 03/25 PO 1123 Losartan Potassium 12.5 MG DAILY 03/25 1000 AC 03/25 PO 1125 Methotrexate 5 MG QMON 03/28 0700 AC PO Metoprolol Tartrate 50 MG BID 03/24 2200 AC 03/25 PO 1123 Oxybutynin Chloride 5 MG DAILY 03/25 1000 AC 03/25 PO 1123 Patient Medication 1 ED .STK-MED ONE 03/25 1358 NH Teaching ED 03/25 1359 Pravastatin Sodium 10 MG 1700 03/25 1700 AC 03/25 PO 1629 Prednisone 5 MG DAILY 03/25 1000 AC 03/25 PO 1124 Tiotropium [place] 1 PUF DAILY 03/25 1000 AC 03/25 INH 1124 Last 24 Hrs of Lab/Avinash Results Last 24 Hrs of Labs/Mics: Laboratory Tests 03/25/17 0622: Anion Gap 12, Estimated GFR 45 L, BUN/Creatinine Ratio 26.7 H, PT 76.5 *H, INR 7.43 *H, CBC w Diff NO MAN DIFF REQ, RBC 3.62 L, MCV 89.6, MCH 29.2, RDW 18.9 H, MPV 7.9, Gran % 90.9 H, Lymphocytes % 6.9 L, Monocytes % 2.2, Eosinophils % 0, Basophils % 0 L, Absolute Granulocytes 4.6, Absolute Lymphocytes 0.3 L, Absolute Monocytes 0.1 L, Absolute Eosinophils 0, Absolute Basophils 0, PUBS MCHC 32.6 L Assessment/Plan Assessment: 86-year-old male with past medical history of hypertension, coronary artery disease, remote [place] status post stenting, chronic atrial fibrillation on warfarin , COPD, obstructive sleep apnea, chronic kidney disease, dyslipidemia, came to the emergency department after having nonstop bleeding from his left knee. #Left knee hemarthrosis, supratherapeutic INR Patient initially had or trauma over his left knee, which was taking care of off in the emergency department. Patient kneeled down and increased over his wound at which point, it started bleeding. Patient is chronically on warfarin, thus he presented to the emergency department with excessive and continuous bleeding. His INR was found to be more than 10 at presentation, has been off warfarin and today's INR is 7.43. Of note, patient was taking antibiotics for some dental procedure last week, which might have significantly increased his INR and thus bleeding potential. -Bleeding has stopped currently, we'll closely monitor the site -Continue following INR without using Coumadin -Orthopedic consultation has been placed to Dr. Vargas, awaiting suggestions. -Surgery consultation was placed with Dr. Long, with a question about anticoagulation. According to cardiology, he can be on new anticoagulants as well but as we clearly know the cause of his supratherapeutic INR being antibiotic this time, he can also be placed on warfarin as his INR gets therapeutic. -Dr. Long, heavy equipment mechanic, had a conversation in detail about anticoagulation, warfarin, antibiotic and the need to contact him if he is to be on antibiotic next time. #Will continue rest of his home medications #Diet: Heart healthy #DVT ppx: Currently supratherapeutic #CODE STATUS: Full code Problem List: 1. Hemarthrosis of knee, left 2. Hypercoagulable state 3. Supratherapeutic INR 4. HTN (hypertension) 5. CAD (coronary artery disease) 6. History of [place] (myocardial infarction) 7. COPD (chronic obstructive pulmonary disease) 8. IRMA (obstructive sleep apnea) 9. HLD (hyperlipidemia) 10. CKD (chronic kidney disease) Pain Ratin Pain Location: - Pain Goal: Pain 4 or less Pain Plan: prn Tomorrow's Labs & Rationales: INR, CBC, BEP
--- NOTE | 2017-03-25 12:18 | PN- Att Addend ---
Attending Addendum Attending Brief Note Patient feeling better, the knee is not as swollen, still loosing little bit of serosanguineous material. His INR is down to 7 and his vital signs are stable, no fever also has not seen the patient yet and I also called Dr. Long to evaluate the patient regarding anticoagulation maybe consider something different on Coumadin pending on the consultants recommendations start disposition plans soon. Intake & Output 03/25 1600 03/25 0800 03/25 0000 03/24 1600 03/24 0800 03/24 0000 Intake Total 480 150 Output Total Balance 480 150 Intake, Oral 480 150 Patient 185 lb 185 lb Weight Weight Reported by Patient Measurement Method Current Medications Sig/Latesha Start time Last Medication Dose Route Stop Time Status Admin Acetaminophen 650 MG Q6P PRN 03/24 214 AC PO Albuterol Sulfate 2 PUF Q4-6 PRN PRN 03/24 2145 AC INH Albuterol Sulfate 3 ML ONCE ONE 03/24 1515 DC 03/24 INH 03/24 1516 1521 Amlodipine Besylate 5 MG DAILY 03/25 1000 AC 03/25 PO 1124 Budesonide/ 2 PUF BID 03/25 1000 AC 03/25 Formoterol Fumarate INH 1124 Folic Acid 1 MG DAILY 03/25 1000 AC 03/25 PO 1123 Furosemide 40 MG DAILY 03/25 1000 AC 03/25 PO 1123 Ipratropium [place] 2.5 ML ONCE ONE 03/24 1515 DC 03/24 INH 03/24 1516 1521 Losartan Potassium 12.5 MG DAILY 03/25 1000 AC 03/25 PO 1125 Methotrexate 5 MG QMON 03/28 0700 AC PO Methylprednisolone 0 .STK-MED ONE 03/24 1528 DC .ROUTE Methylprednisolone 125 MG ONCE ONE 03/24 1515 DC 03/24 IV 03/24 1516 1529 Metoprolol Tartrate 50 MG BID 03/24 2200 AC 03/25 PO 1123 Oxybutynin Chloride 5 MG DAILY 03/25 1000 AC 03/25 PO 1123 Phytonadione 0 .STK-MED ONE 03/24 1532 DC PO Phytonadione 10 MG ONCE ONE 03/24 1515 DC 03/24 PO 03/24 1516 1529 Pravastatin Sodium 10 MG 1700 03/25 1700 AC PO Prednisone 5 MG DAILY 03/25 1000 AC 03/25 PO 1124 Tiotropium [place] 1 PUF DAILY 03/25 1000 AC 03/25 INH 1124 Laboratory Tests 03/25/17 0622: Anion Gap 12, Estimated GFR 45 L, BUN/Creatinine Ratio 26.7 H, PT 76.5 *H, INR 7.43 *H, CBC w Diff NO MAN DIFF REQ, RBC 3.62 L, MCV 89.6, MCH 29.2, RDW 18.9 H, MPV 7.9, Gran % 90.9 H, Lymphocytes % 6.9 L, Monocytes % 2.2, Eosinophils % 0, Basophils % 0 L, Absolute Granulocytes 4.6, Absolute Lymphocytes 0.3 L, Absolute Monocytes 0.1 L, Absolute Eosinophils 0, Absolute Basophils 0, PUBS MCHC 32.6 L 03/24/17 1525: Bicarbonate Actual 25, Mixed VBG pH 7.39, Mixed VBG pCO2 42, Mixed VBG O2 Saturation 19 L, Carboxyhemoglobin 0.5 L, O2 Concentration % RA, Phlebotomy Draw Site LAC 03/24/17 1212: Anion Gap 14, Estimated GFR 39 L, BUN/Creatinine Ratio 24.7, Glucose 137 H, Calcium 8.9, Total Bilirubin 0.9, AST 35, ALT 30, Alkaline Phosphatase 86, Total Protein 6.4, Albumin 3.7, Globulin 2.7, Albumin/Globulin Ratio 1.4, PT > 103.0 * H, INR > 10.0 *H, CBC w Diff NO MAN DIFF REQ, RBC 3.82 L, MCV 90.1, MCH 29.4, RDW 18.8 H, MPV 7.5, Gran % 86.0 H, Lymphocytes % 9.2 L, Monocytes % 4.7, Eosinophils % 0, Basophils % 0.1, Absolute Granulocytes 7.3 H, Absolute Lymphocytes 0.8 L, Absolute Monocytes 0.4, Absolute Eosinophils 0, Absolute Basophils 0, PUBS MCHC 32.6 L
--- NOTE | 2017-03-25 13:36 | Cons- Cardiology ---
General Information and HPI Consulting Request Date of Consult: 03/25/17 Requested By: PAULO DOLAN MD Reason for Consult: Management of anticoagulation Source of Information: patient, old records Exam Limitations: no limitations History of Present Illness: Mr. 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 We monitor his INRs on a regular basis and his last INR was performed on 2016 and was 2.7. The initial laceration occurred 03/05/2017 and a suture was placed in the ED at that time. On 03/13/2017 the suture was removed. According to the patient he knelt down and the wound opened up and continued to bleed from the site of the initial trauma and he EDpresented as a result of this and weakness from blood loss. He stopped taking the warfarin 2 days before coming to the ED on 2016and has received no further Warfarin since that time. He also had some dental work performed recently, and received an unspecified antimicrobial agent at that time and additionally had his warfarin held 3 days prior to the dental procedures. His INR was initially greater than 10, but has come down to 7.43 after he received vitamin K. Allergies/Medications Allergies: Coded Allergies: NO KNOWN ALLERGIES (02/05/15) Home Med List: Aclidinium [place] (Tudorza Pressair) 400 MCG AER.POW.BA 1 PUFF IH QPM COPD ( Reported) Albuterol Sulfate (Proair Hfa) 90 MCG HFA.AER.AD 2 PUF INH Q4-6 PRN PRN SHORTNESS OF BREATH (Reported) Amlodipine Besylate (Norvasc) 5 MG TABLET 1 TAB PO DAILY HEART (Reported) Fluticasone/Salmeterol (Advair 250-50 Diskus) 250 MCG-50 MCG/DOSE BLST.W.DEV 1 PUF INH BID COPD (Reported) Folic Acid 1 MG TABLET 1 TAB PO DAILY VITAMIN SUPPORT (Reported) Furosemide (Lasix) 40 MG TABLET 1 TAB PO DAILY WATER RETENTION (Reported) Lansoprazole 30 MG CAPSULE.DR 1 CAP PO DAILY GI (Reported) Losartan Potassium (Cozaar) 25 MG TABLET 0.5 TAB PO DAILY HEART (Reported) Methotrexate 2.5 MG TABLET 2 TAB PO QMON ARTHRITIS (Reported) Metoprolol Tartrate (Lopressor) 50 MG TABLET 1 TAB PO BID HEART (Reported) Multivit-Min/FA/Lycopen/Lutein (Centrum Silver Tablet) 0.4 MG-300 MCG-250 MCG TABLET 1 TAB PO DAILY SUPPLEMENT (Reported) Oxybutynin Chloride (Oxybutynin Chloride ER) 10 MG TAB.ER.24 1 TAB PO DAILY BLADDER (Reported) Pravastatin Sodium 10 MG TABLET 1 TAB PO DAILY CHOLESTEROL (Reported) Prednisone 5 MG TABLET 1 TAB PO DAILY ARTHRITIS (Reported) Trospium Chloride (Trospium Chloride ER) 60 MG CAP.ER.24H 1 CAP PO DAILY UNKNOWN (Reported) Warfarin Sodium (Coumadin) 2.5 MG TABLET 1 TAB PO 1700 BLOOD THINNER ( Reported) Review of Systems Review of Systems: A 14 point system review was obtained and was noncontributory, other than as above. Past History Travel History Traveled to [place] past 21 day No Medical History Blood Transfusion Hx: Yes Neurological: NONE EENT: NONE Cardiovascular: AFIB, hypertension, hyperlipidemia Respiratory: COPD, obstructive sleep apnea, LUNG INFECTION WITH BREATHING DIFF S /P Gastrointestinal: NONE, constipation Hepatic: NONE Renal: NONE Musculoskeletal: rheumatoid arthritis, LEFT TOTAL HIP REPLACE. Psychiatric: NONE Endocrine: NONE Blood Disorders: NONE Cancer(s): prostate cancer INFORMATION OFFICER/Reproductive: NONE Surgical History Surgical History: CABG, LEFT HIP REPLACEMENT R KNEE REPAIR PACEMAKER HERNIA REPAIRS Psychosocial History Where Do You Live? Home Who Do You Live With? spouse Services at Home: None Primary Language: Mongolian Smoking Status: Unknown If Ever Smoked ETOH Use: denies use Illicit Drug Use: denies illicit drug use Living Will? unknown Functional Ability ADLs Independent: dressing, eating, toileting, bathing. Ambulation: independent IADLs Independent: shopping, housework, finances, food prep, telephone, transportation , medication admin. Exam & Diagnostic Data Vital Signs and I&O Vital Signs Date Time Temp Pulse Resp B/P B/P Pulse O2 O2 Flow FiO2 Mean Ox Delivery Rate 03/25 1125 78 156/72 03/25 1124 78 156/72 03/25 1123 78 156/72 03/25 0742 97.7 66 18 124/70 95 Room Air 03/24 2309 85 120/70 03/24 2300 98.6 85 20 120/70 92 Room Air 03/24 2022 98.0 85 20 140/74 94 Room Air 03/24 2022 94 Room Air 03/24 1922 97.3 61 20 118/58 95 Room Air 03/24 1607 98.6 60 18 132/86 98 Room Air Intake & Output 03/25 1600 03/25 0800 03/25 0000 03/24 1600 03/24 0800 03/24 0000 Intake Total 480 150 Output Total Balance 480 150 Intake, Oral 480 150 Patient 185 lb 185 lb Weight Weight Reported by Patient Measurement Method Physical Exam: Well-developed, well-nourished elderly male in no acute distress. Vital signs: See above. HEENT: Normocephalic, atraumatic, EOMI, moist mucous membranes. Neck: No JVD, no bruits. Lungs: Clear to auscultation bilaterally. Heart: S1, S2 (irregularly, irregular). No murmur, gallop, or rub appreciated. PMI fifth ICS at MCL. Abdomen: Soft, nontender, positive bowel sounds. Extremities: 3 cm laceration left knee with Steri-Strips in place with wound clean and dry. No pedal edema bilaterally. 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 Mr. Romero is feeling improved off the Warfarin and after receiving Vitamin K for the supratherapeutic INR and has had no further bleeding from the left knee laceration. I suspect that his INR significantly increased after he received antimicrobial therapy for his dental work and that this may have contributed to the persistent bleeding from his left knee laceration. Management options for future anticoagulation were discussed in detail. It was pointed out to Mr. Romero that we could switch him from Warfarin anticoagulation to one of the NOACs such as Xarelto (rivaroxaban) or Eliquis (apixaban), but he states that he would prefer to remain on Warfarin as he has a large supply of this at home. The plan will be to resume Warfarin anticoagulation with a goal INR of 2.5 ( range 2.0-3.0) when his INR is back in the therapeutic range. An INR will be planned for this Tuesday( 03/28/2017) and further recommendations will follow. We also discussed the potential for interactions between antimicrobial therapy and Warfarin anticoagulation. He will be in contact with our office if he is started on any antimicrobial therapy in the future so that appropriate steps can be taken to avoid supratherapeutic INRs. Thank you. Consult Acknowledgment - Thank you for your consult request.
[2017-03-25 14:33] VITALS: BP 128/64
[2017-03-25 22:22] VITALS: BP 126/72
[2017-03-26 06:29] VITALS: BP 114/64
[2017-03-26 08:19] LABS: PT 19.1 SEC (9.4-12.5)
[2017-03-26 08:23] LABS: ABSOLUTE BASOPHIL COUNT 0 /CUMM (0.0-0.2); ABSOLUTE EOSINOPHIL COUNT 0 /CUMM (0.0-0.7); ABSOLUTE GRANULOCYTE CT 9.2 /CUMM (1.4-6.5); ABSOLUTE LYMPH COUNT 0.7 /CUMM (1.2-3.4); ABSOLUTE MONOCYTE COUNT 0.3 /CUMM (0.10-0.60); BASOPHIL % 0.1 % (0.0-2.0); EOSINOPHIL % 0 % (0-5); GRANULOCYTE % 90.1 % (42.2-75.2); HEMATOCRIT 30.8 % (42-52); MEAN CORPUSCULAR HGB 29.4 PG (27.0-31.0); MEAN CORPUSCULAR HGB CONC 32.8 G/DL (33.0-37.0); MEAN CORPUSCULAR VOLUME 89.8 FL (80.0-94.0); MEAN PLATELET VOLUME 7.8 FL (7.4-10.4); PLATELET COUNT 235 /CUMM (130-400); RBC DISTRIBUTION WIDTH 19.3 % (11.5-14.5); RED BLOOD CELL CT 3.43 /CUMM (4.70-6.10)
--- NOTE | 2017-03-26 08:35 | PN- Housestaff ---
KIKO CABRAL,JAKOB 03/26/17 0834: Subjective Follow-up For: right knee seroma supratherapeutic INR Subjective: I saw and examined the patient today morning He is moving around comfortably, denies any pain. Wants to go home, otherwise no concerns. Review of Systems Constitutional: Reports: see HPI. Comments: ROS negative except the above. Objective Last 24 Hrs of Vital Signs/I&O Vital Signs Date Time Temp Pulse Resp B/P B/P Pulse O2 O2 Flow FiO2 Mean Ox Delivery Rate 03/26 0629 98.1 76 20 114/64 93 03/25 2222 97.7 93 18 126/72 93 03/25 1433 98.0 65 20 128/64 94 03/25 1125 78 156/72 03/25 1124 78 156/72 03/25 1123 78 156/72 Intake & Output 03/26 1600 03/26 0800 03/26 0000 Intake Total Output Total Balance Number 1 Bowel Movements Physical Exam General Appearance: Alert, Oriented X3, Cooperative, No Acute Distress Skin: No Rashes, No Breakdown HEENT: Atraumatic, PERRLA, EOMI Neck: Supple Cardiovascular: Normal S1, Normal S2 Lungs: Clear to Auscultation, Normal Air Movement Abdomen: Normal Bowel Sounds, Soft, No Tenderness Neurological: Normal Speech, Strength at 5/5 X4 Ext, Normal Tone, Sensation Intact, Cranial Nerves 3-12 NL Extremities: No Clubbing, No Cyanosis, No Edema, right knee swollen, tender Vascular: Normal Pulses, Pulses Symmetrical Current Medications: Current Medications Sig/Latesha Start time Last Medication Dose Route Stop Time Status Admin Acetaminophen 650 MG Q6P PRN 03/24 2145 AC PO Albuterol Sulfate 2 PUF Q4-6 PRN PRN 03/24 214 AC INH Amlodipine Besylate 5 MG DAILY 03/25 1000 AC 03/25 PO 1124 Budesonide/ 2 PUF BID 03/25 1000 AC 03/25 Formoterol Fumarate INH 1124 Folic Acid 1 MG DAILY 03/25 1000 AC 03/25 PO 1123 Furosemide 40 MG DAILY 03/25 1000 AC 03/25 PO 1123 Losartan Potassium 12.5 MG DAILY 03/25 1000 AC 03/25 PO 1125 Methotrexate 5 MG QMON 03/28 0700 AC PO Metoprolol Tartrate 50 MG BID 03/24 2200 AC 03/25 PO 2120 Oxybutynin Chloride 5 MG DAILY 03/25 1000 AC 03/25 PO 1123 Patient Medication 1 ED .STK-MED ONE 03/25 1358 HI Teaching ED 03/25 1359 Pravastatin Sodium 10 MG 1700 03/25 1700 AC 03/25 PO 1629 Prednisone 5 MG DAILY 03/25 1000 AC 03/25 PO 1124 Tiotropium [place] 1 PUF DAILY 03/25 1000 AC 03/25 INH 1124 Last 24 Hrs of Lab/Avinash Results Last 24 Hrs of Labs/Mics: Laboratory Tests 03/26/17 0609: Anion Gap 12, Estimated GFR 41 L, BUN/Creatinine Ratio 33.8 H, PT 19.1 H, INR 1.83 H, CBC w Diff MAN DIFF ORDERED, RBC 3.43 L, MCV 89.8, MCH 29.4, RDW 19.3 H, MPV 7.8, Gran % 90.1 H, Lymphocytes % 6.7 L, Monocytes % 3.1, Eosinophils % 0, Basophils % 0.1, Absolute Granulocytes 9.2 H, Absolute Lymphocytes 0.7 L, Absolute Monocytes 0.3, Absolute Eosinophils 0, Absolute Basophils 0, Platelet Estimate VERIFIED BY SMEAR, Poikilocytosis 1+, Anisocytosis 1+, Ovalocytes 1+, PUBS MCHC 32.8 L Assessment/Plan Assessment: 86-year-old male with past medical history of hypertension, coronary artery disease, remote [place] status post stenting, chronic atrial fibrillation on warfarin , COPD, obstructive sleep apnea, chronic kidney disease, dyslipidemia, came to the emergency department after having nonstop bleeding from his left knee. #Left knee hemarthrosis, supratherapeutic INR Patient initially had or trauma over his left knee, which was taking care of off in the ED. Patient kneeled down and increased over his wound at which point, it started bleeding. Patient is chronically on warfarin, thus he presented to the ER with excessive and continuous bleeding. INR dropped down to 1.83 today ( 10 at presentation). Gave a single dose of 3mg warfarin and sent home. Of note, patient was taking antibiotics for some dental procedure last week, which might have significantly increased his INR and thus bleeding potential. * evaluated patient and reports it is more of a knee seroma rather than hemarthrosis. At this moment managed with conservative management. No need to follow up as well. * According to cardiology, he can be on new anticoagulants as well but as we clearly know the cause of his supratherapeutic INR being antibiotic this time, he can also be placed on warfarin as his INR gets therapeutic. * Dr. Long, generating station mechanic, had a conversation in detail about anticoagulation, warfarin, antibiotic and the need to contact him if he is to be on antibiotic next time. * His INR is regularly monitored by Q 2weeks. #Will continue rest of his home medications #Diet: Heart healthy #DVT ppx: Subtherapeutic today - received 3mg warfarin today. #CODE STATUS: Full code Problem List: 1. Warfarin-induced coagulopathy 2. HLD (hyperlipidemia) 3. IRMA (obstructive sleep apnea) 4. Knee laceration Pain Ratin Pain Location: right knee Pain Goal: Pain 4 or less Pain Plan: tylenol prn Tomorrow's Labs & Rationales: PT for INR JOHNSON JEREZ MD 03/26/17 1344: Attending MD Review Statement Attending Statement Attending MD Statement: examined this patient, discuss w/resident/PA/TWIST MAKER, agreed w/resident/PA/TWIST MAKER, reviewed EMR data (avail), amended to note Attending Assessment/Plan: Mr. Romero was interviewed, examined, and his EHR was reviewed. He has no complaints today. His vital signs and physical exam are benign. His INR is 1.83. Dr. Long was consulted and he advised that the patient should be given 3 mg of warfarin today and then be maintained on 2.5 mg daily. He is stable for discharge and his CMR has been reviewed and signed.
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
[2017-03-26 08:59] LABS: WHITE BLOOD CELL COUNT 10.2 /CUMM (4.8-10.8)
[2017-03-26 09:36] VITALS: BP 118/78
--- NOTE | 2017-03-26 13:40 | Patient Discharge Instructions ---
Discharge Instructions General Discharge Information You were seen/treated for: RIGHT KNEE SEROMA S/P FALL Special Instructions: please follow up with your PCP in a week Please follow up with in a week Please follow up regarding your INR in a week and dose coumadin with a goal INR of 2-3. Diet Continue normal diet: Yes Recommended Diet: Heart Healthy Activity Activity Self Limited: Yes Acute Coronary Syndrome Inclusion Criteria At DC or during hospital stay patient has or had the following: ACS DIAGNOSIS No Discharge Core Measures Meds if any: Prescribed or Continued at Discharge Meds if any: NOT Prescribed or Continued at Discharge Congestive Heart Failure Inclusion Criteria At DC or during hospital stay patient has or had the following: CHF DIAGNOSIS No Discharge Core Measures Meds if any: Prescribed or Continued at Discharge Meds if any: NOT Prescribed or Continued at Discharge Cerebrovascular accident Inclusion Criteria At DC or during hospital stay patient has or had the following: CVA/TIA Diagnosis No Discharge Core Measures Meds if any: Prescribed or Continued at Discharge Meds if any: NOT Prescribed or Continued at Discharge Venous thromboembolism Inclusion Criteria VTE Diagnosis No VTE Type NONE VTE Confirmed by (Test) NONE Discharge Core Measures - Per Current guidelines, there needs to be overlap - treatment for the first 5 days of Warfarin therapy. - If discharged on Warfarin prior to 5 days of - overlap therapy, the patient will need to be - assessed for post discharge needs including - *Post discharge parental anticoagulation - *Warfarin and/or parental anticoagulation education - *Follow up date to check INR post discharge At least 5 days overlap therapy as Inpatient No Meds if any: Prescribed or Continued at Discharge Note: Overlap Therapy is Warfarin and Anticoagulant Meds if any: NOT Prescribed or Continued at Discharge
--- NOTE | 2017-04-01 19:49 | Discharge Summary ---
Visit Information Visit Dates Admission Date: 03/24/17 Discharge Date: 03/26/17 Hospital Course Course Attending Physician: PAULO RIVERO MD Primary Care Physician: PAULO RIVERO MD Consulting Request: Consulting Specialty: Cardiology (and ortho.) Consulting Physician: Dr. Long and Dr. Vargas Reason for Consult: supratherapeutic INR and swelling knee Hospital Course: 86-year-old white male is to of atrial fibrillation on Coumadin. Several days ago had a laceration on his left knee that required sutures his sutures were removed. The day of admission again he injured the knee which got very swollen started loosing serosanguineous material. Came to the emergency room where he had the INR over 10 spied not having taken the Coumadin for 2 days. The patient was given vitamin K For observation. The INR slowly started coming down. Patient had cardiology consultation regarding future anticoagulation and orthopedic Consultation with Dr. Vargas, for that the patient might have had a seroma of the subcutaneous tissues or a posttraumatic patellar bursitis with no surgical procedures were needed patient was monitored the next days knee was down and he was cleared for discharge to follow with cardiology orthopedic and myself Complications: None Allergies: Coded Allergies: NO KNOWN ALLERGIES (02/05/15) Pertinent Lab Results: 03/24/17 1525: Bicarbonate Actual 25, Mixed VBG pH 7.39, Mixed VBG pCO2 42, Mixed VBG O2 Saturation 19 L, Carboxyhemoglobin 0.5 L, O2 Concentration % RA, Phlebotomy Draw Site LAC 03/24/17 1212: Anion Gap 14, Estimated GFR 39 L, BUN/Creatinine Ratio 24.7, Glucose 137 H, Calcium 8.9, Total Bilirubin 0.9, AST 35, ALT 30, Alkaline Phosphatase 86, Total Protein 6.4, Albumin 3.7, Globulin 2.7, Albumin/Globulin Ratio 1.4, PT > 103.0 * H, INR > 10.0 *H, CBC w Diff NO MAN DIFF REQ, RBC 3.82 L, MCV 90.1, MCH 29.4, RDW 18.8 H, MPV 7.5, Gran % 86.0 H, Lymphocytes % 9.2 L, Monocytes % 4.7, Eosinophils % 0, Basophils % 0.1, Absolute Granulocytes 7.3 H, Absolute Lymphocytes 0.8 L, Absolute Monocytes 0.4, Absolute Eosinophils 0, Absolute Basophils 0, PUBS MCHC 32.6 L 03/25/17 0622: Anion Gap 12, Estimated GFR 45 L, BUN/Creatinine Ratio 26.7 H, PT 76.5 *H, INR 7.43 *H, CBC w Diff NO MAN DIFF REQ, RBC 3.62 L, MCV 89.6, MCH 29.2, RDW 18.9 H, MPV 7.9, Gran % 90.9 H, Lymphocytes % 6.9 L, Monocytes % 2.2, Eosinophils % 0, Basophils % 0 L, Absolute Granulocytes 4.6, Absolute Lymphocytes 0.3 L, Absolute Monocytes 0.1 L, Absolute Eosinophils 0, Absolute Basophils 0, PUBS MCHC 32.6 L Disposition Summary Disposition Principal Diagnosis: Supratherapeutic INR Syndrome of the subcutaneous tissues of the knee Additional Diagnosis: Atrial fibrillation COPD Hypertension Hyperlipidemia Sleep apnea Rheumatoid arthritis Discharge Disposition: home health services Discharge Instructions General Discharge Information Code Status: Full Code Patient's Diet: Healthy heart Patient's Activity: as tolerated Follow-Up Instructions/Appts: Follow-up with Dr. Rivero to [facility] and if needed with orthopedic Medications at Discharge Discharge Medications: Continue taking these medications: Pravastatin Sodium (Pravastatin Sodium) 10 MG TABLET 1 Tablet ORAL DAILY Comments: Last Taken: 03/25/17 Time: 1700PM Metoprolol Tartrate (Lopressor) 50 MG TABLET 1 Tablet ORAL TWICE DAILY Comments: Last Taken: 03/26/17 Time: 1000AM Losartan Potassium (Cozaar) 25 MG TABLET 0.5 Tablet ORAL DAILY Multivit-Min/FA/Lycopen/Lutein (Centrum Silver Tablet) 0.4 MG-300 MCG-250 MCG TABLET 1 Tablet ORAL DAILY Comments: NOT GIVEN Amlodipine Besylate (Norvasc) 5 MG TABLET 1 Tablet ORAL DAILY Comments: Last Taken:03/26/17 Time: 1000AM Lansoprazole (Lansoprazole) 30 MG CAPSULE.DR 1 Capsule ORAL DAILY Comments: NOT GIVEN Albuterol Sulfate (Proair Hfa) 90 MCG HFA.AER.AD 2 Puff Inhale through mouth EVERY 4-6 HOURS NEEDED as needed for SHORTNESS OF BREATH Comments: NOT GIVEN Furosemide (Lasix) 40 MG TABLET 1 Tablet ORAL DAILY Comments: Last Taken: 03/26/17 Time: 1000AM Prednisone (Prednisone) 5 MG TABLET 1 Tablet ORAL DAILY Comments: Last Taken: 03/26/17 Time: 1000AM Folic Acid (Folic Acid) 1 MG TABLET 1 Tablet ORAL DAILY Comments: Last Taken: 03/26/17 Time: 1000AM Fluticasone/Salmeterol (Advair 250-50 Diskus) 250 MCG-50 MCG/DOSE BLST.W.DEV 1 Puff Inhale through mouth TWICE DAILY Comments: NOT GIVEN Methotrexate (Methotrexate) 2.5 MG TABLET 2 Tablet ORAL EVERY TUESDAY Comments: PER PT DECREASED FROM 7.5MG TO 5MG NOT GIVEN Aclidinium Warren (Tudorza Pressair) 400 MCG AER.POW.BA 1 PUFF INHALATION Every night Comments: NOT GIVEN Trospium Chloride (Trospium Chloride ER) 60 MG CAP.ER.24H 1 Capsule ORAL DAILY Comments: NOT GIVEN Warfarin Sodium (Coumadin) 2.5 MG TABLET 1 Tablet ORAL 5 PM Comments: COUMADIN 3MG PO GIVEN 03/26/17 @2PM Oxybutynin Chloride (Oxybutynin Chloride ER) 10 MG TAB.ER.24 1 Tablet ORAL DAILY Qty = 30 Comments: Last Taken:03/26/17 Time: 1000AM Copies To: TANIYA CABRAL,DUYEN Spencer; PAULO RIVERO MD; MYLENE CABRAL,SANGITA Grey MD Review Statement Documenting Attending: PAULO RIVERO MD
== END 2017-03-26 14:53 | DRG 813 ==
LOC: ERH 11:45 → ERHI 16:41 → 2NB 16:41 → ENRESERV 18:10 → ENTRNSPT 19:32 → 2NB 20:13 → EDTRNSPT 20:16 → EDTRNSPTTYP 20:16 → CMPTRNSPT 20:23 → ENPENDDIS 03-26 13:44 → 2NB 03-26 14:53
PROVIDERS: Emergency Medicine; Student in an Organized Health Care Education/Training Program; ADMIT Internal Medicine
DX: D68.32 Hemorrhagic disorder due to extrinsic circulating anticoagulants (principal); D68.59 Other primary thrombophilia; J44.1 Chronic obstructive pulmonary disease with (acute) exacerbation; M25.062 Hemarthrosis, left knee; Z95.1 Presence of aortocoronary bypass graft; I48.91 Unspecified atrial fibrillation; R26.9 Unspecified abnormalities of gait and mobility; Z79.01 Long term (current) use of anticoagulants; T45.515A Adverse effect of anticoagulants, initial encounter; I10 Essential (primary) hypertension; E78.5 Hyperlipidemia, unspecified; G47.33 Obstructive sleep apnea (adult) (pediatric); R26.81 Unsteadiness on feet
CPT/HCPCS: 2NBP; 36415; 82436; 93005; 93010; 96374; J2930; J3490; J7512

== ENCOUNTER 2018-02-22 10:14 | Observation (INO) | payer OTHER ==
[~2018-02-22] VITALS: Ht 167.6 cm; Wt 71.7 kg
[~2018-02-22 10:14] MED LIST changes: +PREVACID15 M2 PO; +XARELTO15 M2 PO
--- NOTE | 2018-02-22 10:47 | ED GENERAL ADULT ---
History of Present Illness General Chief Complaint: Dyspnea (COPD, CHF, Other) Stated Complaint: FROM GI LOW O2 SAT, SOB Source: patient, family Exam Limitations: no limitations Allergies Coded Allergies: NO KNOWN ALLERGIES (02/05/15) Reconcile Medications Amlodipine Besylate (Norvasc) 5 MG TABLET 1 TAB PO DAILY HEART (Reported) Folic Acid 1 MG TABLET 1 TAB PO DAILY VITAMIN SUPPORT (Reported) Furosemide (Lasix) 40 MG TABLET 1 TAB PO DAILY WATER RETENTION (Reported) Lansoprazole (Prevacid) 15 MG TAB.RAP.DR 1 TAB PO DAILY GI (Reported) place on top of the tongue let dissolve, then swallow Losartan Potassium (Cozaar) 25 MG TABLET 0.5 TAB PO DAILY HEART (Reported) Methotrexate 2.5 MG TABLET 2 TAB PO QMON ARTHRITIS (Reported) Metoprolol Tartrate (Lopressor) (Unknown Strength) TABLET (Unknown Dose) PO BID HEART (Reported) Multivit-Min/FA/Lycopen/Lutein (Centrum Silver Tablet) 0.4 MG-300 MCG-250 MCG TABLET 1 TAB PO DAILY SUPPLEMENT (Reported) Oxybutynin Chloride (Oxybutynin Chloride ER) 10 MG TAB.ER.24 1 TAB PO DAILY BLADDER (Reported) Pravastatin Sodium 10 MG TABLET 1 TAB PO DAILY CHOLESTEROL (Reported) Prednisone 5 MG TABLET 1 TAB PO DAILY ARTHRITIS (Reported) Rivaroxaban (Xarelto) 15 MG TABLET 1 TAB PO DAILY BLOOD THINNER (Reported) Trospium Chloride (Trospium Chloride ER) 60 MG CAP.ER.24H 1 CAP PO DAILY BLADDER (Reported) Triage Note: PATIENT ARRIVES TO ED FROM GI SUITE, PER RN PATIENT ARRIVED FOR GI SCOPE AND PATIENT WAS SHORT OF BREATH, PALE, AND WEAK. PATIENT WAS EVALUATED AT PCP OFFICE THIS WEEK AND LABS REVELAED LOW H/H OF 7.7/24.1. PER DR. RESTREPO PATIENT SHOULD BE EVALUATED BEFORE DOING ANY PROCEDURE IN GI. PATIENT ARRIVES WITH IV PLACED BY DANISH IN RF #[id number]. AWAITING PROVIDER EVAL. Triage Nurses Notes Reviewed? yes Onset: Gradual Duration: week(s): Timing: recent history Severity: moderate HPI: 87YO MALE with hx of afib on Xarelto, HTN, CAD s/p CABG, COPD presents to ED from GI suite for dyspnea and hypoxia. Patient was seen and evaluated by his primary care doctor last week and had low H/H. Patient was scheduled to have a endoscopy and colonoscopy with Dr. Restrepo today for evaluation of possible GI bleed. While patient was in GI suite became very short of breath and oxygen saturation dropped. Patient reports history of generalized weakness and dyspnea on exertion for the past few weeks. also states that he appears pale. Patient is on Xarelto for atrial fibrillation, he Stopped Xarelto for the past 2 days for pre-procedural. Patient reports a history of GERD and intermittent epigastric abdominal pain which he describes as mild burning. Patient denies chest pain, vomiting, melena, BRBPR. (Treva MANZANO,Layne Escamilla) Vital Signs & Intake/Output Vital Signs & Intake/Output Vital Signs Date Time Temp Pulse Resp B/P B/P Pulse O2 O2 Flow FiO2 Mean Ox Delivery Rate 02/22 1616 97.7 62 18 113/55 98 Room Air 02/22 1435 97.7 64 18 134/66 100 Room Air 02/22 1235 98.3 60 20 116/57 100 Nasal 2.0L Cannula 02/22 1220 98.3 60 20 126/58 100 Nasal 2.0L Cannula 02/22 1200 63 20 107/58 100 Nasal 2.0L Cannula 02/22 1023 100 Nasal 2.0L Cannula 02/22 1023 97.4 60 20 98/58 100 Nasal 2.0L Cannula (Josey CABRAL,Darrell Hummel) Past History Travel History Traveled to [place] past 21 day No Medical History Any Pertinent Medical History? see below for history Neurological: NONE EENT: NONE Cardiovascular: AFIB, hypertension, hyperlipidemia Respiratory: COPD, obstructive sleep apnea, LUNG INFECTION WITH BREATHING DIFF S /P Gastrointestinal: NONE, constipation Hepatic: NONE Renal: NONE Musculoskeletal: rheumatoid arthritis, LEFT TOTAL HIP REPLACE. FREQUENT L HIP DISLOCATIO Psychiatric: NONE Endocrine: NONE Blood Disorders: NONE Cancer(s): prostate cancer TRAFFIC SIGNAL MECHANIC/Reproductive: NONE History of MRSA: No History of VRE: No History of CDIFF: No Surgical History Surgical History: CABG, LEFT HIP REPLACEMENT R KNEE REPAIR PACEMAKER HERNIA REPAIRS Psychosocial History Who do you live with Spouse Services at Home None What is your primary language [place] Tobacco Use: Never used ETOH Use: denies use Family History Hx Contributory? No (Layne Mooney) Review of Systems Review of Systems Constitutional: Reports: see HPI. EENTM: Reports: no symptoms. Respiratory: Reports: see HPI. Cardiovascular: Reports: no symptoms. GI: Reports: see HPI. Genitourinary: Reports: no symptoms. Musculoskeletal: Reports: no symptoms. Skin: Reports: see HPI. Neurological/Psychological: Reports: no symptoms. Hematologic/Endocrine: Reports: see HPI. Immunologic/Allergic: Reports: no symptoms. All Other Systems: Reviewed and Negative (Treva MANZANO,Layne Escamilla) Physical Exam Physical Exam General Appearance: well developed/nourished, no apparent distress, alert, awake Head: atraumatic, normal appearance Eyes: Bilateral: PERRL, EOMI, pale conjunctivae. Ears, Nose, Throat: hearing grossly normal Neck: normal inspection, supple, full range of motion Respiratory: normal breath sounds, no respiratory distress, lungs clear Cardiovascular: regular rate/rhythm Peripheral Pulses: 2+ radial (R), 2+ radial (L) Gastrointestinal: normal bowel sounds, soft, no organomegaly, epigastric tenderness Rectal: normal exam, normal rectal tone, heme negative stool Back: normal inspection, normal range of motion Extremities: normal inspection, normal range of motion Neurologic/Psych: awake, alert, oriented x 3 Skin: intact, warm/dry, pallor Core Measures ACS in differential dx? Yes CVA/TIA Diagnosis: No Sepsis Present: No Sepsis Focused Exam Completed? No (Treva MANZANO,Layne Escamilla) Progress Differential Diagnoses I considered the following diagnoses in my evaluation of the patient: [ Symptomatic anemia, GI bleeding, COPD exacerbation, pneumonia, acute coronary syndrome] Diagnostic Imaging: Viewed by Me: Radiology Read. Discussed w/RAD: Radiology Read. Radiology Impression: PATIENT: FLAKITO ARCINIEGA PRESENT AGE : 87 PATIENT ACCOUNT NO: [id number] : 32 LOCATION: [facility] ORDERING PHYSICIAN: Layne MANZANO SERVICE DATE: 02/22/18 EXAM TYPE: RAD - XRY-CHEST XRAY, TWO VIEWS EXAMINATION: XR CHEST CLINICAL INFORMATION: 87-year- old male patient with dyspnea. COMPARISON: Chest x-ray from 07/22/2016 and 03/24. TECHNIQUE: AP and lateral sitting views of the chest, 4 exposures. FINDINGS: Reexamination shows significant eventration of the right hemidiaphragm. This is unchanged from previous. In addition, the patient has a large hiatal hernia. No pleural effusion evident. The aerated portions of both lungs are clear. No consolidation or atelectasis is seen. A left pectoral single lead pacemaker is unchanged position directed into the right ventricle. The heart remains enlarged. IMPRESSION: 1. Enlarged heart. 2. No acute pulmonary disease. DICTATED BY: Lance Valentin MD DATE/TIME DICTATED:02/22/181155 ALL TERRAIN VEHICLE TECHNICIAN:JOHN DATE/TIME TRANSCRIBED:02/22/181155 CONFIDENTIAL, DO NOT COPY WITHOUT APPROPRIATE AUTHORIZATION. <Electronically signed in Other Vendor System> SIGNED BY: Lance Valentin MD 02/22/18 1203 Initial ED EKG: VENTRICULAR PACED RHYTHM @63BPM Prior EKG: unchanged (03/24/17) (Treva MANZANO,Layne Escamilla) Plan of Care: Orders Procedure Date/time Status CBC WITHOUT DIFFERENTIAL 02/23 06 Active BASIC ELECTROLYTES PLUS BUN&CR 02/23 0600 Active Heart Healthy Diet 02/22 D Active CBC WITHOUT DIFFERENTIAL 02/22 1900 Active TRC EVALUATION (GEN) 02/22 1436 Active Pathway - chart 02/22 1413 Active House Staff 02/22 1413 Active MISTAKE 02/22 1325 Active Patient Data 02/22 1314 Active Saline Lock 02/[address] in observation 02/22 1252 Active Misc Message 02/22 1252 Active ED Holding Orders 02/22 1252 Active Add-on Test (ER Only) 02/22 1252 Active Code Status 02/22 1252 Active BLOOD PRODUCT PICKUP 02/22 1207 Active LEUKOCYTE POOR (PACKED CELLS) 02/22 1149 Active LEUKOCYTE POOR (PACKED CELLS) 02/22 1140 Active Intake & Output 02/22 1100 Active B-TYPE NATRIURETIC PEP (BNP) 02/22 1048 Complete TROPONIN LEVEL 02/22 1031 Complete PARTIAL THROMBOPLASTIN TIME 02/22 1031 Complete PROTHROMBIN TIME 02/22 1031 Complete COMPREHENSIVE METABOLIC PANEL 02/22 1031 Complete CBC WITHOUT DIFFERENTIAL 02/22 1031 Complete EKG 02/22 1031 Active TYPE & SCREEN (NOT X-MATCH) 02/22 1031 Active VTE Mechanical Prophylaxis 02/22 UNK Active Laboratory Tests 02/22/18 1416: CBC w Diff Cancelled, WBC Cancelled, RBC Cancelled, Hgb Cancelled, Hct Cancelled , MCV Cancelled, MCH Cancelled, MCHC Cancelled, RDW Cancelled, Plt Count Cancelled, MPV Cancelled 02/22/18 1048: Anion Gap 17 H, Estimated GFR 38 L, BUN/Creatinine Ratio 26.5 H, Glucose 156 H, Calcium 9.1, Total Bilirubin 1.0, AST 22, ALT 28, Alkaline Phosphatase 66, Troponin I 0.03, Jyb-M-Ygcekrsljeo Pept 3100 H, Total Protein 5.8 L, Albumin 3.4 L, Globulin 2.4, Albumin/Globulin Ratio 1.4, PT 12.8 H, INR 1.17, APTT 25, CBC w Diff NO MAN DIFF REQ, RBC 2.85 L, MCV 85.9, MCH 27.2, MCHC 31.6 L, RDW 21.3 H, MPV 7.4, Gran % 83.2 H, Lymphocytes % 9.2 L, Monocytes % 6.4, Eosinophils % 1.2, Basophils % 0, Absolute Granulocytes 4.2, Absolute Lymphocytes 0.5 L, Absolute Monocytes 0.3, Absolute Eosinophils 0.1, Absolute Basophils 0 Patient became hypoxic with O2 sats in 80s and dyspneic with just removing his pants for examination. Patient's H/H is low, patient has times consistent with anemia. Will transfuse one unit. Spoke with Dr. Rivero who recommends observation given this patient's symptomatic anemia requiring blood transfusion. Patient also requires GI consult for possible GI bleeding. Case management agree with plan for inpatient observation. Dr. Dowling present to see and evaluate the patient. (Layne Mooney) (Josey CABRAL,Darrell Hummel) Departure Departure Disposition: STILL A PATIENT Condition: Stable Clinical Impression Primary Impression: Symptomatic anemia Secondary Impressions: Hypoxia Referrals: Antoni Rivero MD (PCP/Family) Departure Forms: Customer Survey General Discharge Information Observation Note Spoke With: Antoni Rivero MD Physician Advisor Notified: PANCHO CABRAL,JAKE [address]aj[address] Patient In: Non-ED OBS Care Area Rationale for Observation: My rational for observation is as follows [patient has symptomatic anemia requiring blood transfusion, dyspnea with hypoxia on exertion requiring supplemental oxygen, possible GI bleeding requiring GI consult, possible pulmonology consult, possible hematology consult, premature discharge medically unsafe]. (Layne Mooney) PA/RAILWAY SIGNAL ELECTRICIAN Co-Sign Statement Statement: ED Attending supervision documentation- [X] I saw and evaluated the patient. I have also reviewed all the pertinent lab results and diagnostic results. I agree with the findings and the plan of care as documented in the PA's/RAILWAY SIGNAL ELECTRICIAN's documentation. Patient presents for evaluation after "not looking so good" prior to endoscopy scheduled for today. Physical examination reveals somewhat breathless-appearing gentleman even while at rest with pallor. [] I have reviewed the ED Record and agree with the PA's/RAILWAY SIGNAL ELECTRICIAN's documentation. [] Additions or exceptions (if any) to the PAs/RAILWAY SIGNAL ELECTRICIAN's note and plan are summarized below: [] (Josey CABRAL,Darrell Hummel) Critical Care Note Critical Care Note Critical Care Time: 30-74 min (Treva MANZANO,Layne Escamilla)
[2018-02-22 10:57] LABS: ABSOLUTE BASOPHIL COUNT 0 /CUMM (0.0-0.2); ABSOLUTE MONOCYTE COUNT 0.3 /CUMM (0.10-0.60)
[2018-02-22 11:01] LABS: ABSOLUTE EOSINOPHIL COUNT 0.1 /CUMM (0.0-0.7); ABSOLUTE GRANULOCYTE CT 4.2 /CUMM (1.4-6.5); ABSOLUTE LYMPH COUNT 0.5 /CUMM (1.2-3.4); BASOPHIL % 0 % (0.0-2.0); EOSINOPHIL % 1.2 % (0-5); HEMATOCRIT 24.5 % (42-52); MEAN CORPUSCULAR HGB 27.2 PG (27.0-31.0); MEAN CORPUSCULAR HGB CONC 31.6 G/DL (33.0-37.0); MEAN CORPUSCULAR VOLUME 85.9 FL (80.0-94.0); MEAN PLATELET VOLUME 7.4 FL (7.4-10.4); PLATELET COUNT 210 /CUMM (130-400); RBC DISTRIBUTION WIDTH 21.3 % (11.5-14.5); RED BLOOD CELL CT 2.85 /CUMM (4.70-6.10)
[2018-02-22 11:17] LABS: GRANULOCYTE % 83.2 % (42.2-75.2)
[2018-02-22 11:20] LABS: PT 12.8 SEC (9.4-12.5); PTT 25 SEC (25-37)
--- NOTE | 2018-02-22 12:03 | RADIOLOGY REPORT ---
EXAMINATION: XR CHEST CLINICAL INFORMATION: 87-year-old male patient with dyspnea. COMPARISON: Chest x-ray from 07/22/2016 and 03/24/2017. TECHNIQUE: AP and lateral sitting views of the chest, 4 exposures. FINDINGS: Reexamination shows significant eventration of the right hemidiaphragm. This is unchanged from previous. In addition, the patient has a large hiatal hernia. No pleural effusion evident. The aerated portions of both lungs are clear. No consolidation or atelectasis is seen. A left pectoral single lead pacemaker is unchanged position directed into the right ventricle. The heart remains enlarged. IMPRESSION: 1. Enlarged heart. 2. No acute pulmonary disease.
--- NOTE | 2018-02-22 13:15 | History & Physical ---
Brennan CABRAL,[facility] 02/22/18 5205: General Information and HPI MD Statement: I have seen and personally examined FLAKITO ARCINIEGA and documented this H&P. The patient is a 87 year old M who presented with a patient stated chief complaint of [weakness and shortness]. History of Present Illness: 87 yo M with pmhx of Keely salinas on xarelto, COPD, hypertension, CAD status post CABG , prostate cancer status post resection presenting for shortness of breath and weakness. The patient states that his weakness and shortness of breath have been ongoing for a while. States that the weakness is mostly from his hips down. The patient last saw Dr. Walker on Tuesday. Lab work revealed anemia. The patient is supposed to have a colonoscopy and endoscopy today to help determine the cause of his anemia. However he had symptomatic anemic symptoms of shortness of breath and weakness. He was sent from to the emergency department. The patient states that his last colonoscopy was 5 years ago from November. States that it was normal. The patient denies any bleeding or dark stools. He is not on any home oxygen. The patient has not taken any Xarelto in 2 days due to anticipation of colonoscopy and EGD. The patient denies any lightheadedness, headaches, vision changes, chest pain, palpitations, abdominal pain, changes in appetite, leg swelling, or leg pain. He states that his senior compensation analyst is Dr. Long States that his snap shearer Dr. Malik. Allergies/Medications Allergies: Coded Allergies: NO KNOWN ALLERGIES (02/05/15) Past History Travel History Traveled to [place] past 21 day No Medical History Neurological: NONE EENT: NONE Cardiovascular: AFIB, hypertension, hyperlipidemia Respiratory: COPD, obstructive sleep apnea, LUNG INFECTION WITH BREATHING DIFF S /P Gastrointestinal: NONE, constipation Hepatic: NONE Renal: NONE Musculoskeletal: rheumatoid arthritis, LEFT TOTAL HIP REPLACE. FREQUENT L HIP DISLOCATIO Psychiatric: NONE Endocrine: NONE Blood Disorders: NONE Cancer(s): prostate cancer CONTOUR GRINDER/Reproductive: NONE History of MRSA: No History of VRE: No History of CDIFF: No Surgical History Surgical History: CABG, LEFT HIP REPLACEMENT R KNEE REPAIR PACEMAKER HERNIA REPAIRS Past Family/Social History Psychosocial History Who Do You Live With? spouse Services at Home: None Primary Language: Urdu ETOH Use: denies use Living Will? unknown Functional Ability ADLs Independent: dressing, eating, toileting, bathing. Ambulation: independent IADLs Independent: shopping, housework, finances, food prep, telephone, transportation , medication admin. Review of Systems Review of Systems Constitutional: Reports: see HPI. Cardiovascular: Denies: chest pain. Respiratory: Reports: short of breath. GI: Denies: abdominal pain, bloody stool. Musculoskeletal: Reports: see HPI (weakness). Exam & Diagnostic Data Last 24 Hrs of Vital Signs/I&O Vital Signs Date Time Temp Pulse Resp B/P B/P Pulse O2 O2 Flow FiO2 Mean Ox Delivery Rate 02/22 1235 98.3 60 20 116/57 100 Nasal 2.0L Cannula 02/22 1220 98.3 60 20 126/58 100 Nasal 2.0L Cannula 02/22 1200 63 20 107/58 100 Nasal 2.0L Cannula 02/22 1023 100 Nasal 2.0L Cannula 02/22 1023 97.4 60 20 98/58 100 Nasal 2.0L Cannula Intake & Output 02/22 1600 02/22 0800 02/22 0000 Intake Total Output Total Balance Patient 177 lb Weight Weight Reported by Patient Measurement Method Physical Exam General Appearance Alert, Oriented X3, Cooperative, No Acute Distress Skin pale HEENT no JVD Cardiovascular Regular Rate, Normal S1, Normal S2 Lungs Clear to Auscultation, Normal Air Movement Abdomen Normal Bowel Sounds, Soft, No Tenderness Extremities trace right lower extremity edema Vascular 2+ radial pulses Last 24 Hrs of Labs/Avinash: Laboratory Tests 02/22/18 1048: Anion Gap 17 H, Estimated GFR 38 L, BUN/Creatinine Ratio 26.5 H, Glucose 156 H, Calcium 9.1, Total Bilirubin 1.0, AST 22, ALT 28, Alkaline Phosphatase 66, Troponin I 0.03, Bgb-B-Lzpiuzsbqdh Pept 3100 H, Total Protein 5.8 L, Albumin 3.4 L, Globulin 2.4, Albumin/Globulin Ratio 1.4, PT 12.8 H, INR 1.17, APTT 25, CBC w Diff NO MAN DIFF REQ, RBC 2.85 L, MCV 85.9, MCH 27.2, MCHC 31.6 L, RDW 21.3 H, MPV 7.4, Gran % 83.2 H, Lymphocytes % 9.2 L, Monocytes % 6.4, Eosinophils % 1.2, Basophils % 0, Absolute Granulocytes 4.2, Absolute Lymphocytes 0.5 L, Absolute Monocytes 0.3, Absolute Eosinophils 0.1, Absolute Basophils 0 Assessment/Plan Assessment: 87 yo M with pmhx of Keely [place] on xarelto, COPD, hypertension, CAD status post CABG , prostate cancer status post resection presenting for shortness of breath and weakness due to symptomatic anemia. #symptomatic anemia H/H7.8/24.5 Probnp 3100 PT 12, INR 1.7, PTT 25 Trop .03 *GI does not want to scope -Repeat CBCs status post 1 unit transfusion at 7pm -Follow-up GI recommendations -Consult cardiology as patient off xarelto -Courtesy call to pulmonology #Anticoagulation -Place on Alps -Discuss with cardiology regarding resuming his anticoagulation #CKD with elevated proBNP Cr 1.7 proBNP 3100 -cont to monitor -pro bnp most likely 2/2 to CKD, no signs of fluid overload #confirm home meds for chronic conditions -contact pcp for home meds -cont mtx q tuesday, lasix, folic acid, metoprolol #DVT ppx - ALPS #FULL CODE As Ranked By This Provider Problem List: 1. Symptomatic anemia 2. GI bleed Core Measures/Misc (07/24) Acute Coronary Syndrome ACS Diagnosis: No Congestive Heart Failure Congestive Heart Failure Diagnosis No Cerebrovascular Accident CVA/TIA Diagnosis: No VTE (View Protocol) VTE Risk Factors Acute Medical Illness No Mechanical VTE Prophylaxis d/t N/A MechProphylax Ordered No VTE Pharm Prophylaxis d/t Medical Contraindication Sepsis (View protocol) Sepsis Present: No Al CABRAL,Dimitri 02/22/18 1443: General Information and HPI Allergies/Medications Home Med list Folic Acid 1 MG TABLET 1 TAB PO DAILY VITAMIN SUPPORT (Reported) Furosemide (Lasix) 40 MG TABLET 1 TAB PO DAILY WATER RETENTION (Reported) Lansoprazole (Prevacid) 15 MG TAB.RAP.DR 1 TAB PO DAILY GI (Reported) place on top of the tongue let dissolve, then swallow Methotrexate 2.5 MG TABLET 2 TAB PO QMON ARTHRITIS (Reported) Metoprolol Tartrate (Lopressor) (Unknown Strength) TABLET 50 PO BID HEART ( Reported) Multivit-Min/FA/Lycopen/Lutein (Centrum Silver Tablet) 0.4 MG-300 MCG-250 MCG TABLET 1 TAB PO DAILY SUPPLEMENT (Reported) Oxybutynin Chloride (Oxybutynin Chloride ER) 10 MG TAB.ER.24 1 TAB PO DAILY BLADDER (Reported) Pravastatin Sodium 10 MG TABLET 1 TAB PO DAILY CHOLESTEROL (Reported) Prednisone 5 MG TABLET 1 TAB PO DAILY ARTHRITIS (Reported) Rivaroxaban (Xarelto) 15 MG TABLET 1 TAB PO DAILY BLOOD THINNER (Reported) Trospium Chloride (Trospium Chloride ER) 60 MG CAP.ER.24H 1 CAP PO DAILY BLADDER (Reported) Resident Review Statement Resident Statement: examined this patient, discussed with merchandising internship, agreed with merchandising internship Other Findings: 87-year-old very pleasant gentleman past medical history of afebrile and Zarrella, COPD, hypertension, CAD status post CABG, prostate cancer status post resection presents to [facility] after being sent by GI suite for increased shortness of breath.. She was scheduled for an upper endoscopy for workup of his anemia. endorsed shortness of breath but no chest pain. Does any acute bleeding, hematemesis, melena, or any daily use of NSAID. Impression * Symptomatic anemia as evident by increased shortness of breath in the setting of hemoglobin level of 7.6. etiology not known. No obvious sign of bleed. Was kriss * Hx of Chronic disease: Afib,COPD, HTN,CAD. Plan Place in observation receiving 1 unit PRBC, will repeat cbc at 7 pm Will hold of [facility] Cardiology consult code status: Full code [id number]
--- NOTE | 2018-02-22 18:57 | PN- Att Addend ---
Attending Addendum Attending Brief Note 87-year-old white male was recently feeling weak and having some shortness of breath and found to be anemic and was sent to the GI specialist , for the last 2 to have been preparing for colonoscopy even stopped his Garcia anticoagulation. Today and he went for his colonoscopy was short of breath and very weak and was decided not to do the procedure and was sent to the emergency room for transfusions and will keep on observation, have GI reevaluate him in the morning and also have cardiology see him regarding the anticoagulation. Current Medications Sig/Latesha Start time Last Medication Dose Route Stop Time Status Admin Folic Acid 1 MG DAILY 02/23 0900 AC PO Furosemide 40 MG DAILY 02/23 09 AC PO Methotrexate 5 MG QMON 02/27 0900 AC PO Metoprolol Tartrate 50 MG BID 02/22 2100 AC PO Omeprazole 40 MG DAILY AC 02/23 0700 AC PO Pantoprazole Sodium 0 .STK-MED ONE 02/22 1150 DC IV Pantoprazole Sodium 40 MG ONCE ONE 02/22 1130 DC 02/22 IV 02/22 1131 1145 Laboratory Tests 02/22/18 1416: CBC w Diff Cancelled, WBC Cancelled, RBC Cancelled, Hgb Cancelled, Hct Cancelled , MCV Cancelled, MCH Cancelled, MCHC Cancelled, RDW Cancelled, Plt Count Cancelled, MPV Cancelled 02/22/18 1048: Anion Gap 17 H, Estimated GFR 38 L, BUN/Creatinine Ratio 26.5 H, Glucose 156 H, Calcium 9.1, Total Bilirubin 1.0, AST 22, ALT 28, Alkaline Phosphatase 66, Troponin I 0.03, Elv-M-Aiqjrtmeibq Pept 3100 H, Total Protein 5.8 L, Albumin 3.4 L, Globulin 2.4, Albumin/Globulin Ratio 1.4, PT 12.8 H, INR 1.17, APTT 25, CBC w Diff NO MAN DIFF REQ, RBC 2.85 L, MCV 85.9, MCH 27.2, MCHC 31.6 L, RDW 21.3 H, MPV 7.4, Gran % 83.2 H, Lymphocytes % 9.2 L, Monocytes % 6.4, Eosinophils % 1.2, Basophils % 0, Absolute Granulocytes 4.2, Absolute Lymphocytes 0.5 L, Absolute Monocytes 0.3, Absolute Eosinophils 0.1, Absolute Basophils 0 Vital Signs Date Time Temp Pulse Resp B/P B/P Pulse O2 O2 Flow FiO2 Mean Ox Delivery Rate 02/22 1616 97.7 62 18 113/55 98 Room Air 02/22 1435 97.7 64 18 134/66 100 Room Air 02/22 1235 98.3 60 20 116/57 100 Nasal 2.0L Cannula 02/22 1220 98.3 60 20 126/58 100 Nasal 2.0L Cannula 02/22 1200 63 20 107/58 100 Nasal 2.0L Cannula Intake & Output 02/22 1600 Intake Total Output Total Balance Patient 177 lb Weight Weight Reported by Patient Measurement Method
[2018-02-22 19:30] VITALS: BP 118/58
[2018-02-22 22:08] LABS: ABSOLUTE BASOPHIL COUNT 0 /CUMM (0.0-0.2); ABSOLUTE EOSINOPHIL COUNT 0.1 /CUMM (0.0-0.7); ABSOLUTE GRANULOCYTE CT 5.5 /CUMM (1.4-6.5); ABSOLUTE LYMPH COUNT 0.5 /CUMM (1.2-3.4); ABSOLUTE MONOCYTE COUNT 0.2 /CUMM (0.10-0.60); BASOPHIL % 0.4 % (0.0-2.0); HEMATOCRIT 26.7 % (42-52); MEAN CORPUSCULAR HGB 27.1 PG (27.0-31.0); MEAN CORPUSCULAR VOLUME 87.5 FL (80.0-94.0); MEAN PLATELET VOLUME 6.7 FL (7.4-10.4); PLATELET COUNT 214 /CUMM (130-400); RBC DISTRIBUTION WIDTH 21.2 % (11.5-14.5); RED BLOOD CELL CT 3.06 /CUMM (4.70-6.10); WHITE BLOOD CELL COUNT 6.3 /CUMM (4.8-10.8)
[2018-02-22 22:36] LABS: GRANULOCYTE % 86.7 % (42.2-75.2)
[2018-02-23 06:34] VITALS: BP 106/58
[2018-02-23 08:26] LABS: ABSOLUTE BASOPHIL COUNT 0 /CUMM (0.0-0.2); ABSOLUTE EOSINOPHIL COUNT 0.2 /CUMM (0.0-0.7); ABSOLUTE GRANULOCYTE CT 5.5 /CUMM (1.4-6.5); ABSOLUTE LYMPH COUNT 0.7 /CUMM (1.2-3.4); ABSOLUTE MONOCYTE COUNT 0.3 /CUMM (0.10-0.60); BASOPHIL % 0.1 % (0.0-2.0); EOSINOPHIL % 2.9 % (0-5); GRANULOCYTE % 82.4 % (42.2-75.2); HEMATOCRIT 27.3 % (42-52); MEAN CORPUSCULAR HGB 28.6 PG (27.0-31.0); MEAN CORPUSCULAR VOLUME 86.8 FL (80.0-94.0); MEAN PLATELET VOLUME 7.3 FL (7.4-10.4); PLATELET COUNT 200 /CUMM (130-400); RBC DISTRIBUTION WIDTH 20.4 % (11.5-14.5); RED BLOOD CELL CT 3.14 /CUMM (4.70-6.10); WHITE BLOOD CELL COUNT 6.6 /CUMM (4.8-10.8)
--- NOTE | 2018-02-23 09:26 | PN- Housestaff ---
Subjective Follow-up For: Symptomatic anemia Subjective: No acute events overnight. States he is doing well. SOB and weakness improved after blood. demanding to leave Review of Systems Constitutional: Reports: see HPI. Objective Last 24 Hrs of Vital Signs/I&O Vital Signs Date Time Temp Pulse Resp B/P B/P Pulse O2 O2 Flow FiO2 Mean Ox Delivery Rate 02/23 0738 99.0 74 20 106/58 02/23 0634 99.0 74 20 106/58 92 02/22 2138 Room Air Room Air 02/22 2047 62 111/65 02/22 1930 98.1 62 18 118/58 96 Room Air 02/22 1841 99 Nasal 2.0L Cannula 02/22 1616 97.7 62 18 113/55 98 Room Air 02/22 1435 97.7 64 18 134/66 100 Room Air 02/22 1235 98.3 60 20 116/57 100 Nasal 2.0L Cannula 02/22 1220 98.3 60 20 126/58 100 Nasal 2.0L Cannula 02/22 1200 63 20 107/58 100 Nasal 2.0L Cannula 02/22 1023 100 Nasal 2.0L Cannula 02/22 1023 97.4 60 20 98/58 100 Nasal 2.0L Cannula Intake & Output 02/23 1600 02/23 0800 02/23 0000 Intake Total 240 400 Output Total 600 Balance 240 -200 Intake, Oral 240 400 Output, Urine 600 Patient 158 lb 158 lb 173 lb Weight Weight Bed scale Bed scale Measurement Method Physical Exam General Appearance: Alert, Oriented X3, Cooperative Cardiovascular: Regular Rate, Normal S1, Normal S2 Lungs: Clear to Auscultation, Normal Air Movement Abdomen: Normal Bowel Sounds, Soft, No Tenderness Vascular: 2+ radial Current Medications: Current Medications Sig/Latesha Start time Last Medication Dose Route Stop Time Status Admin Acetaminophen 500 MG Q6P PRN 02/23 0645 AC 02/23 PO 0738 Budesonide/ 2 PUF BID 02/227 AC 02/23 Formoterol Fumarate INH 0737 Folic Acid 1 MG DAILY 02/23 09 AC 02/23 PO 0739 Furosemide 40 MG DAILY 02/23 09 AC 02/23 PO 0737 Methotrexate 5 MG QMON 02/27 900 AC PO Metoprolol Tartrate 50 MG BID 02/22 2100 AC 02/23 PO 0738 Omeprazole 40 MG DAILY AC 02/23 0700 AC 02/23 PO 0625 Pantoprazole Sodium 0 .STK-MED ONE 02/22 1150 DC IV Pantoprazole Sodium 40 MG ONCE ONE 02/22 1130 DC 02/22 IV 02/22 1131 1145 Last 24 Hrs of Lab/Avinash Results Last 24 Hrs of Labs/Mics: Laboratory Tests 02/23/18 0808: Anion Gap 14, Estimated GFR 38 L, BUN/Creatinine Ratio 21.2, CBC w Diff NO MAN DIFF REQ, RBC 3.14 L, MCV 86.8, MCH 28.6, MCHC 33.0, RDW 20.4 H, MPV 7.3 L, Gran % 82.4 H, Lymphocytes % 10.1 L, Monocytes % 4.5, Eosinophils % 2.9, Basophils % 0.1, Absolute Granulocytes 5.5, Absolute Lymphocytes 0.7 L, Absolute Monocytes 0.3, Absolute Eosinophils 0.2, Absolute Basophils 0 02/22/18 2157: CBC w Diff NO MAN DIFF REQ, RBC 3.06 L, MCV 87.5, MCH 27.1, MCHC 31.0 L, RDW 21.2 H, MPV 6.7 L, Gran % 86.7 H, Lymphocytes % 7.3 L, Monocytes % 3.6, Eosinophils % 2.0, Basophils % 0.4, Absolute Granulocytes 5.5, Absolute Lymphocytes 0.5 L, Absolute Monocytes 0.2, Absolute Eosinophils 0.1, Absolute Basophils 0 02/22/18 1416: CBC w Diff Cancelled, WBC Cancelled, RBC Cancelled, Hgb Cancelled, Hct Cancelled , MCV Cancelled, MCH Cancelled, MCHC Cancelled, RDW Cancelled, Plt Count Cancelled, MPV Cancelled 02/22/18 1048: Anion Gap 17 H, Estimated GFR 38 L, BUN/Creatinine Ratio 26.5 H, Glucose 156 H, Calcium 9.1, Total Bilirubin 1.0, AST 22, ALT 28, Alkaline Phosphatase 66, Troponin I 0.03, Gyl-B-Iamsocczcok Pept 3100 H, Total Protein 5.8 L, Albumin 3.4 L, Globulin 2.4, Albumin/Globulin Ratio 1.4, PT 12.8 H, INR 1.17, APTT 25, CBC w Diff NO MAN DIFF REQ, RBC 2.85 L, MCV 85.9, MCH 27.2, MCHC 31.6 L, RDW 21.3 H, MPV 7.4, Gran % 83.2 H, Lymphocytes % 9.2 L, Monocytes % 6.4, Eosinophils % 1.2, Basophils % 0, Absolute Granulocytes 4.2, Absolute Lymphocytes 0.5 L, Absolute Monocytes 0.3, Absolute Eosinophils 0.1, Absolute Basophils 0 Assessment/Plan Assessment: 87 yo M with pmhx of Keely sal[place] on xarelto, COPD, hypertension, CAD status post CABG , prostate cancer status post resection presenting for shortness of breath and weakness due to symptomatic anemia. #symptomatic anemia H/H7.8/24.5 -> 9.0/27.3 after 1 unit Probnp 3100 PT 12, INR 1.7, PTT 25 Trop .03 *GI does not want to scope -spoke with Dr. Agee who cleared patient for xarelto. she also asked cardiology and pulm to see patient -advised to f/u with GI and reschedule procedure -Spoke to pulmnology who advised patient to f/u before next scheduled endoscopy/ colonoscopy -spoke with cardiology to visit patient. patients' upset as cardiology has not yet seen them and it was late in the afternoon. demenaded to be discharged despite medical advice. advised to f/u with cardiology before procedure #Anticoagulation -restart xarelto per GI #CKD with elevated proBNP Cr 1.7 -stable. cont to monitor #elevated probnp proBNP 3100 -pro bnp most likely 2/2 to CKD, no signs of fluid overload #confirm home meds for chronic conditions -contact pcp for home meds -cont mtx q tuesday, lasix, folic acid, metoprolol #DVT ppx - ALPS #FULL CODE Problem List: 1. GI bleed Pain Ratin Pain Location: none Pain Goal: Pain 4 or less Pain Plan: pain pathway Tomorrow's Labs & Rationales: none
--- NOTE | 2018-02-23 11:01 | Patient Discharge Instructions ---
Discharge Instructions General Discharge Information Special Instructions: Please follow up with your pcp in 1-2 weeks. Please follow up with GI specialist to reschedule your endoscopy and colonoscopy. Please follow up with your lab animal technologist Dr. Long before your next endoscopy and colonoscopy. Please follow up with your pulmnologist Dr. Malik before your next endoscopy and colonoscopy. Acute Coronary Syndrome Inclusion Criteria At DC or during hospital stay patient has or had the following: ACS DIAGNOSIS No Discharge Core Measures Meds if any: Prescribed or Continued at Discharge Meds if any: NOT Prescribed or Continued at Discharge Congestive Heart Failure Inclusion Criteria At DC or during hospital stay patient has or had the following: CHF DIAGNOSIS No Discharge Core Measures Meds if any: Prescribed or Continued at Discharge Meds if any: NOT Prescribed or Continued at Discharge Cerebrovascular accident Inclusion Criteria At DC or during hospital stay patient has or had the following: CVA/TIA Diagnosis No Discharge Core Measures Meds if any: Prescribed or Continued at Discharge Meds if any: NOT Prescribed or Continued at Discharge Venous thromboembolism Inclusion Criteria VTE Diagnosis No VTE Type NONE VTE Confirmed by (Test) NONE Discharge Core Measures - Per Current guidelines, there needs to be overlap - treatment for the first 5 days of Warfarin therapy. - If discharged on Warfarin prior to 5 days of - overlap therapy, the patient will need to be - assessed for post discharge needs including - *Post discharge parental anticoagulation - *Warfarin and/or parental anticoagulation education - *Follow up date to check INR post discharge At least 5 days overlap therapy as Inpatient No Meds if any: Prescribed or Continued at Discharge Note: Overlap Therapy is Warfarin and Anticoagulant Meds if any: NOT Prescribed or Continued at Discharge
--- NOTE | 2018-02-23 11:20 | PN- Att Addend ---
Attending Addendum Attending Brief Note Patient comfortable in bed no shortness of breath, color little improved after transfusion. Last hemoglobin 9 hematocrit 27. The changes on physical by GI and cardiology okay to reassume anticoagulation and the patient will be discharged to continue the workup as an outpatient to be checked by cardiology and pulmonary before having to GI procedures to to make sure he can tolerate the tests also monitor his CBC. 24 TOTALS 02/23 0000 02/22 0000 Intake Total 400 Output Total 600 Balance -200 Intake, Oral 400 Output, Urine 600 Patient 173 lb Weight Weight Bed scale Measurement Method Current Medications Sig/Latesha Start time Last Medication Dose Route Stop Time Status Admin Acetaminophen 500 MG Q6P PRN 02/23 0645 AC 02/23 PO 0738 Budesonide/ 2 PUF BID 02/22 221 AC 02/23 Formoterol Fumarate INH 0737 Folic Acid 1 MG DAILY 02/23 0900 AC 02/23 PO 0739 Furosemide 40 MG DAILY 02/23 0900 AC 02/23 PO 0737 Methotrexate 5 MG QMON 02/27 09 AC PO Metoprolol Tartrate 50 MG BID 02/22 2100 AC 02/23 PO 0738 Omeprazole 40 MG DAILY AC 02/23 0700 AC 02/23 PO 0625 Pantoprazole Sodium 0 .STK-MED ONE 02/22 1150 DC IV Pantoprazole Sodium 40 MG ONCE ONE 02/22 1130 DC 02/22 IV 02/22 1131 1145 Potassium Chloride 40 MEQ ONCE ONE 02/23 1045 DC PO 02/23 1046 Rivaroxaban 15 MG DAILY 02/23 1107 AC PO Laboratory Tests 02/23/18 0808: Anion Gap 14, Estimated GFR 38 L, BUN/Creatinine Ratio 21.2, CBC w Diff NO MAN DIFF REQ, RBC 3.14 L, MCV 86.8, MCH 28.6, MCHC 33.0, RDW 20.4 H, MPV 7.3 L, Gran % 82.4 H, Lymphocytes % 10.1 L, Monocytes % 4.5, Eosinophils % 2.9, Basophils % 0.1, Absolute Granulocytes 5.5, Absolute Lymphocytes 0.7 L, Absolute Monocytes 0.3, Absolute Eosinophils 0.2, Absolute Basophils 0 02/22/187: CBC w Diff NO MAN DIFF REQ, RBC 3.06 L, MCV 87.5, MCH 27.1, MCHC 31.0 L, RDW 21.2 H, MPV 6.7 L, Gran % 86.7 H, Lymphocytes % 7.3 L, Monocytes % 3.6, Eosinophils % 2.0, Basophils % 0.4, Absolute Granulocytes 5.5, Absolute Lymphocytes 0.5 L, Absolute Monocytes 0.2, Absolute Eosinophils 0.1, Absolute Basophils 0 02/22/18 1416: CBC w Diff Cancelled, WBC Cancelled, RBC Cancelled, Hgb Cancelled, Hct Cancelled , MCV Cancelled, MCH Cancelled, MCHC Cancelled, RDW Cancelled, Plt Count Cancelled, MPV Cancelled 02/22/18 1048: Anion Gap 17 H, Estimated GFR 38 L, BUN/Creatinine Ratio 26.5 H, Glucose 156 H, Calcium 9.1, Total Bilirubin 1.0, AST 22, ALT 28, Alkaline Phosphatase 66, Troponin I 0.03, Tix-O-Flvhwwgkcde Pept 3100 H, Total Protein 5.8 L, Albumin 3.4 L, Globulin 2.4, Albumin/Globulin Ratio 1.4, PT 12.8 H, INR 1.17, APTT 25, CBC w Diff NO MAN DIFF REQ, RBC 2.85 L, MCV 85.9, MCH 27.2, MCHC 31.6 L, RDW 21.3 H, MPV 7.4, Gran % 83.2 H, Lymphocytes % 9.2 L, Monocytes % 6.4, Eosinophils % 1.2, Basophils % 0, Absolute Granulocytes 4.2, Absolute Lymphocytes 0.5 L, Absolute Monocytes 0.3, Absolute Eosinophils 0.1, Absolute Basophils 0 Vital Signs Date Time Temp Pulse Resp B/P B/P Pulse O2 O2 Flow FiO2 Mean Ox Delivery Rate 02/23 0738 99.0 74 20 106/58 02/23 0634 99.0 74 20 106/58 92 04 2138 Room Air Room Air 02/22 2047 62 111/65 02/22 1930 98.1 62 18 118/58 96 Room Air 02/22 1841 99 Nasal 2.0L Cannula 02/22 1616 97.7 62 18 113/55 98 Room Air 02/22 1435 97.7 64 18 134/66 100 Room Air 02/22 1235 98.3 60 20 116/57 100 Nasal 2.0L Cannula 04/18 1220 98.3 60 20 126/58 100 Nasal 2.0L Cannula 02/22 1200 63 20 107/58 100 Nasal 2.0L Cannula
[2018-02-23 14:21] VITALS: BP 100/50
== END 2018-02-23 14:58 ==
LOC: ERH 10:14 → 2NB 12:52 → ERHI 12:52 → ENRESERV 17:12 → ENTRNSPT 18:01 → EDTRNSPTSTS 18:04 → 2NB 18:17 → CMPTRNSPT 18:38 → 2NB 02-23 14:58
PROVIDERS: Physician Assistant; Student in an Organized Health Care Education/Training Program
DX: D64.9 Anemia, unspecified (principal); I48.91 Unspecified atrial fibrillation; Z79.01 Long term (current) use of anticoagulants; J44.9 Chronic obstructive pulmonary disease, unspecified; I12.9 Hypertensive chronic kidney disease with stage 1 through stage 4 chronic kidney disease, or unspecified chronic kidney disease; N18.9 Chronic kidney disease, unspecified; I25.10 Atherosclerotic heart disease of native coronary artery without angina pectoris; Z95.1 Presence of aortocoronary bypass graft; Z85.46 Personal history of malignant neoplasm of prostate; R53.1 Weakness; E78.5 Hyperlipidemia, unspecified; G47.33 Obstructive sleep apnea (adult) (pediatric); K59.00 Constipation, unspecified; M06.9 Rheumatoid arthritis, unspecified; Z96.642 Presence of left artificial hip joint
CPT/HCPCS: 6040; 36592; 71046; 82436; 86920; 93005; 93010; 96365; 96366; 96375; 99291; G0378; J3490; P9016

== ENCOUNTER 2018-03-10 18:39 | Inpatient (IN) | payer OTHER ==
[~2018-03-10] VITALS: Ht 167.6 cm; Wt 83.1 kg
--- NOTE | 2018-03-10 19:11 | ED DYSPNEA/ASTHMA COMPLAINT ---
History of Present Illness General Chief Complaint: General Adult Stated Complaint: SIB FOR ANEMIA Source: patient, family, old records Exam Limitations: no limitations Vital Signs & Intake/Output Vital Signs & Intake/Output Vital Signs Date Time Temp Pulse Resp B/P B/P Pulse O2 O2 Flow FiO2 Mean Ox Delivery Rate 03/13 0550 97.6 85 20 115/82 92 Room Air 03/13 0000 Room Air 03/12 2129 97.8 64 19 108/58 98 Room Air 03/12 1431 97.5 66 18 122/64 98 Room Air ED Intake and Output 03/13 0000 03/12 1200 Intake Total 2670 240 Output Total Balance 2670 240 Intake, IV 10 Intake, Oral 2660 240 Number 4 Bowel Movements Weight Bed scale Measurement Method Allergies Coded Allergies: NO KNOWN ALLERGIES (02/05/15) Reconcile Medications Folic Acid 1 MG TABLET 1 TAB PO DAILY VITAMIN SUPPORT (Reported) Furosemide (Lasix) 40 MG TABLET 1 TAB PO DAILY WATER RETENTION (Reported) Lansoprazole (Prevacid) 15 MG TAB.RAP.DR 1 TAB PO DAILY GI (Reported) place on top of the tongue let dissolve, then swallow Losartan Potassium 25 MG TABLET 1 TAB PO DAILY BP (Reported) Methotrexate 2.5 MG TABLET 2 TAB PO QMON ARTHRITIS (Reported) Metoprolol Tartrate (Lopressor) (Unknown Strength) TABLET 50 PO BID HEART ( Reported) Multivit-Min/FA/Lycopen/Lutein (Centrum Silver Tablet) 0.4 MG-300 MCG-250 MCG TABLET 1 TAB PO DAILY SUPPLEMENT (Reported) Oxybutynin Chloride (Oxybutynin Chloride ER) 10 MG TAB.ER.24 1 TAB PO DAILY BLADDER (Reported) Pravastatin Sodium 10 MG TABLET 1 TAB PO DAILY CHOLESTEROL (Reported) Prednisone 5 MG TABLET 1 TAB PO DAILY ARTHRITIS (Reported) Rivaroxaban (Xarelto) 15 MG TABLET 1 TAB PO DAILY BLOOD THINNER (Reported) Trospium Chloride (Trospium Chloride ER) 60 MG CAP.ER.24H 1 CAP PO DAILY BLADDER (Reported) Triage Note: PT TO TRIAGE SENT BY FOR BLOOD TRANSFUSION. HX ANEMIA, LAST TRANSFUSION APPROX 1 MONTH AGO. PER PT FELT SOB TODAY AND STATED "FELT LIKE I WAS GOING." HYPOTENSIVE IN TRIAGE 93/54. 02 SAT 97% IN TRIAGE, DENIES CURRENT SOB. PT PALE IN COLOR. Triage Nurses Notes Reviewed? yes HPI: 87M PMH A. fib on xarelto, COPD, hypertension, CAD status post CABG, prostate cancer status post resection, chronic anemia recently requiring transfusion, sent in by his PCP for anemia. Patient complains of fatigue, dyspnea on exertion, and unsteady gait. Hgb 6.8 down from 7.2 yesterday. Has outpatient colonoscopy scheduled. He denies chest pain, palpitations, n/v/d, abdominal pain, melena, hematemesis. He reports some lightheadedness with exertion. Past History Travel History Traveled to [place] past 21 day No Medical History Any Pertinent Medical History? see below for history Neurological: NONE EENT: NONE Cardiovascular: AFIB, CHF, hypertension, hyperlipidemia Respiratory: COPD, obstructive sleep apnea, LUNG INFECTION WITH BREATHING DIFF S /P Gastrointestinal: constipation Hepatic: NONE Renal: NONE Musculoskeletal: rheumatoid arthritis, LEFT TOTAL HIP REPLACE. 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 No Review of Systems Review of Systems Constitutional: Reports: no symptoms. EENTM: Reports: no symptoms. Respiratory: Reports: no symptoms. Cardiovascular: Reports: no symptoms. GI: Reports: no symptoms. Genitourinary: Reports: no symptoms. Musculoskeletal: Reports: no symptoms. Skin: Reports: no symptoms. Neurological/Psychological: Reports: no symptoms. Hematologic/Endocrine: Reports: no symptoms. Immunologic/Allergic: Reports: no symptoms. All Other Systems: Reviewed and Negative Physical Exam Physical Exam General Appearance: well developed/nourished, no apparent distress Head: atraumatic, normal appearance Eyes: Bilateral: normal appearance. Ears, Nose, Throat: normal ENT inspection, hearing grossly normal Neck: normal inspection, supple, full range of motion Respiratory: normal breath sounds, no respiratory distress Cardiovascular: regular rate/rhythm Gastrointestinal: soft, non-tender Extremities: normal inspection Neurologic/Psych: awake, alert, oriented x 3, normal mood/affect Skin: intact, warm/dry, pallor Core Measures ACS in differential dx? No CVA/TIA Diagnosis No Sepsis Present: No Sepsis Focused Exam Completed? No Progress Differential Diagnosis: GI bleed, varices, ulcer, marrow failure, ME Plan of Care: Orders Procedure Date/time Status Nothing by Mouth 03/13 B Active Change service to 03/13 0846 Active Change service to 03/13 0734 Active Change service to 03/13 0709 Active Enema 03/13 0400 Complete Clear Liquid Diet 03/12 L Complete Turn and Reposition 03/12 1306 Active Skin Integrity Protocol 03/12 1306 Active Weight 03/12 1251 Active Vital Signs 03/12 1251 Complete Teach/Educate 03/12 1251 Complete Pain Treatment and Response 03/12 1251 Complete Nutritional Intake, Monitor 03/12 1251 Complete Isolation 03/12 1251 Complete Intake & Output 03/12 1251 Complete Patient Care Conference 03/12 1251 Active Activity/Ambulation 03/12 1251 Complete Current Medications Sig/Latesha Start time Last Medication Dose Stop Time Status Admin Ondansetron HCl 4 MG ONCE ONE 03/13 1000 CAN (Zofran) 03/13 1001 Pravastatin Sodium 10 MG 1700 03/11 1700 AC 03/12 (Pravachol) 1703 Folic Acid 1 MG DAILY 03/11 1506 AC 03/12 (Folic Acid) 1058 Prednisone 5 MG DAILY 03/11 0900 AC 03/12 1058 Pantoprazole Sodium 40 MG DAILY 03/10 2330 AC 03/13 (Protonix) 0952 Acetaminophen 650 MG Q6PRN PRN 03/10 2300 AC (Tylenol) Laboratory Tests 03/13/18 0815: CBC w Diff NO MAN DIFF REQ, RBC 3.48 L, MCV 87.5, MCH 27.6, MCHC 31.5 L, RDW 19.5 H, MPV 7.4, Gran % 78.1 H, Lymphocytes % 11.7 L, Monocytes % 6.0, Eosinophils % 4.0, Basophils % 0.2, Absolute Granulocytes 6.2, Absolute Lymphocytes 0.9 L, Absolute Monocytes 0.5, Absolute Eosinophils 0.3, Absolute Basophils 0 Initial ED EKG: normal sinus rhythm, no ST T wave changes Departure Departure Disposition: STILL A PATIENT Condition: Stable Clinical Impression Primary Impression: Symptomatic anemia Referrals: Antoni Rivero MD (PCP/Family) Departure Forms: Customer Survey General Discharge Information Observation Note Spoke With: Filiberto Hoyos MD Place Patient In: Non-ED OBS Care Area Rationale for Observation: My rational for observation is as follows symptomatic anemia with weakness and unsteady gait with drop in Hgb from day prior, will transfuse and monitor overnight, if Hgb stable can be discharged with outpatient follow up. Critical Care Note Critical Care Note Critical Care Time: non-applicable
[2018-03-10 19:32] LABS: ABSOLUTE BASOPHIL COUNT 0 /CUMM (0.0-0.2); ABSOLUTE EOSINOPHIL COUNT 0.2 /CUMM (0.0-0.7); ABSOLUTE GRANULOCYTE CT 5.2 /CUMM (1.4-6.5); ABSOLUTE LYMPH COUNT 0.6 /CUMM (1.2-3.4); ABSOLUTE MONOCYTE COUNT 0.4 /CUMM (0.10-0.60); BASOPHIL % 0.3 % (0.0-2.0); EOSINOPHIL % 3.3 % (0-5); GRANULOCYTE % 80.8 % (42.2-75.2); HEMATOCRIT 22.2 % (42-52); MEAN CORPUSCULAR HGB 26.6 PG (27.0-31.0); MEAN CORPUSCULAR HGB CONC 30.8 G/DL (33.0-37.0); MEAN CORPUSCULAR VOLUME 86.6 FL (80.0-94.0); MEAN PLATELET VOLUME 6.5 FL (7.4-10.4); PLATELET COUNT 364 /CUMM (130-400); RBC DISTRIBUTION WIDTH 22.4 % (11.5-14.5); RED BLOOD CELL CT 2.57 /CUMM (4.70-6.10); WHITE BLOOD CELL COUNT 6.4 /CUMM (4.8-10.8)
[2018-03-10] MEDS ORDERED: LOSARTAN POTASS25 M1 PO (20:25)
--- NOTE | 2018-03-10 21:37 | History & Physical ---
Bernardo CABRAL,[facility] 03/10/182136: General Information and HPI MD Statement: I have seen and personally examined FLAKITO ARCINIEGA and documented this H&P. The patient is a 87 year old M who presented with a patient stated chief complaint of [weakness, fatigue, dyspnea]. 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 The patient states that he has a history of anemia for many years. He often tends to get lightheaded to the point that he feels he will pass out. He had a similar episode today. Around 1pm today, he got out to his deck to get some fresh air, when he started feeling lightheaded and like he was going to pass out. He sat down for a while until the feeling . Afterwards, his asked him to call his PCP who recommended that he goes to the ED for transfusion. The patient states that for the past week or so he has been feeling more lightheaded, fatigued and sleeping more than usual. He has never lost consciousness. No history of falls. He gets short of breath walking 20 feet or so. Yesterday he also had 4 episodes of loose bowel movements for which he took some anti-diarrheal medication which resolved his symptoms. Denies bloody or black stools. Last month, he was in hospital and scheduled for EGD/Colonoscopy. He underwent bowel prep which made him dehydrated and lightheaded. He was subsequently denied the procedure and sent home later after he was better. His last colonoscopy was 3 years ago which he reports was normal. He was iron supplementation but stopped as his stools became darker. Allergies/Medications Allergies: Coded Allergies: NO KNOWN ALLERGIES (02/05/15) Home Med list Folic Acid 1 MG TABLET 1 TAB PO DAILY VITAMIN SUPPORT (Reported) Furosemide (Lasix) 40 MG TABLET 1 TAB PO DAILY WATER RETENTION (Reported) Lansoprazole (Prevacid) 15 MG TAB.RAP.DR 1 TAB PO DAILY GI (Reported) place on top of the tongue let dissolve, then swallow Losartan Potassium 25 MG TABLET 1 TAB PO DAILY BP (Reported) Methotrexate 2.5 MG TABLET 2 TAB PO QMON ARTHRITIS (Reported) Metoprolol Tartrate (Lopressor) (Unknown Strength) TABLET 50 PO BID HEART ( Reported) Multivit-Min/FA/Lycopen/Lutein (Centrum Silver Tablet) 0.4 MG-300 MCG-250 MCG TABLET 1 TAB PO DAILY SUPPLEMENT (Reported) Oxybutynin Chloride (Oxybutynin Chloride ER) 10 MG TAB.ER.24 1 TAB PO DAILY BLADDER (Reported) Pravastatin Sodium 10 MG TABLET 1 TAB PO DAILY CHOLESTEROL (Reported) Prednisone 5 MG TABLET 1 TAB PO DAILY ARTHRITIS (Reported) Rivaroxaban (Xarelto) 15 MG TABLET 1 TAB PO DAILY BLOOD THINNER (Reported) Trospium Chloride (Trospium Chloride ER) 60 MG CAP.ER.24H 1 CAP PO DAILY BLADDER (Reported) Past History Travel History Traveled to [place] past 21 day No Medical History Neurological: NONE EENT: NONE Cardiovascular: AFIB, CHF, hypertension, hyperlipidemia Respiratory: COPD, obstructive sleep apnea, LUNG INFECTION WITH BREATHING DIFF S /P Gastrointestinal: constipation Hepatic: NONE Renal: NONE Musculoskeletal: rheumatoid arthritis, LEFT TOTAL HIP REPLACE. 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 spouse Services at Home: None Primary Language: Ghanaian Living Will? unknown Functional Ability ADLs Independent: dressing, eating, toileting, bathing. Ambulation: independent IADLs Independent: shopping, housework, finances, food prep, telephone, transportation , medication admin. Review of Systems Review of Systems Constitutional: Reports: chills, weakness. Denies: fever. EENTM: Reports: no symptoms. Cardiovascular: Denies: chest pain. Respiratory: Reports: short of breath. Denies: cough. GI: Reports: changes in stool. Denies: abdominal pain. Genitourinary: Reports: no symptoms. Musculoskeletal: Reports: joint pain. Skin: Reports: no symptoms. Neurological/Psychological: Reports: numbness, tingling (knees and toes). Exam & Diagnostic Data Last 24 Hrs of Vital Signs/I&O Vital Signs Date Time Temp Pulse Resp B/P B/P Pulse O2 O2 Flow FiO2 Mean Ox Delivery Rate 03/10 2140 97.7 61 20 86/48 98 Room Air 03/10 2125 98.2 63 20 88/50 98 Room Air 03/10 2019 96 Room Air Room Air 03/10 2017 98.0 66 20 98/56 95 Room Air 03/10 1901 96.1 64 16 93/54 97 Room Air Physical Exam General Appearance Alert, Oriented X3, Cooperative, No Acute Distress Skin No Rashes, No Breakdown Skin Temp/Moisture Exam: Warm/Dry Sepsis Skin Exam (color): Normal for Ethnicity HEENT Atraumatic Cardiovascular Normal S1, Normal S2, MAXIMILIANO Lungs Normal Air Movement, decreased breath sounds and crackles at left lower lobe Abdomen Soft, No Tenderness Neurological Normal Speech Extremities No Cyanosis, No Edema Last 24 Hrs of Labs/Avinash: Laboratory Tests 03/10/181923: Anion Gap 11, Estimated GFR 34 L, BUN/Creatinine Ratio 30.5 H, Glucose 106 H, Calcium 8.9, Total Bilirubin 0.6, AST 18, ALT 20 L, Alkaline Phosphatase 68, Troponin I 0.02, Total Protein 5.6 L, Albumin 3.3 L, Globulin 2.3, Albumin/ Globulin Ratio 1.4, CBC w Diff NO MAN DIFF REQ, RBC 2.57 L, MCV 86.6, MCH 26.6 L, MCHC 30.8 L, RDW 22.4 H, MPV 6.5 L, Gran % 80.8 H, Lymphocytes % 9.5 L, Monocytes % 6.1, Eosinophils % 3.3, Basophils % 0.3, Absolute Granulocytes 5.2, Absolute Lymphocytes 0.6 L, Absolute Monocytes 0.4, Absolute Eosinophils 0.2, Absolute Basophils 0 Assessment/Plan Assessment: 87 yo M with PMH of A. fib on xarelto, Anemia, COPD, hypertension, hyperlipidemia, CAD s/p CABG, prostate Ca (both surgeries in 1998), IRMA was sent in to the ED by his PCP for blood transfusion. Labs on admission showed a low H& H 6.8/22.2. Assessment: 1. Symptomatic Anemia 2. ?ISHMAEL on CKD 3. History of A.fib s/p pacemaker on Xarelto 4. History of Hypertension, Hyperlipidemia Plan: * Admit patient in Obs to general medicine * He has received 1 unit of pRBC in ED. Will repeat his CBC in am. * Hydrate with 1 bag NS @75ml/hr * PT eval in am * Will hold his antihypertensives as patient is borderline hypotensive. Can reevaulate in am. * Stool guiacs * Diet: Regular * DVT Prophylaxis: ALPS only. Xarelto on hold * Code: Full Code As Ranked By This Provider Problem List: 1. Anemia Observation Initial Note - I have personally examined FLAKITO ARCINIEGA on 03/10/18 at 2245. The disposition of FLAKITO ARCINIEGA is uncertain at this time and before a determination can be made, he requires a period of observation for the following reasons [anemia requiring transfusion, gait instability requiring physical therapy] Core Measures/Misc (07/24) Acute Coronary Syndrome ACS Diagnosis: No Congestive Heart Failure Congestive Heart Failure Diagnosis No Cerebrovascular Accident CVA/TIA Diagnosis: No VTE (View Protocol) VTE Risk Factors Age>40 No Mechanical VTE Prophylaxis d/t N/A MechProphylax Ordered No VTE Pharm Prophylaxis d/t NA PharmProphylax ordered Sepsis (View protocol) Sepsis Present: No Janice Yun MD 03/11/18 0202: Exam & Diagnostic Data Last 24 Hrs of Vital Signs/I&O Vital Signs Date Time Temp Pulse Resp B/P B/P Pulse O2 O2 Flow FiO2 Mean Ox Delivery Rate 03/11 0000 98.3 70 22 112/60 94 Room Air 03/10 2305 98.9 72 20 105/54 98 Room Air 03/10 2140 97.7 61 20 86/48 98 Room Air 03/10 2125 98.2 63 20 88/50 98 Room Air 03/10 2019 96 Room Air Room Air 03/10 2017 98.0 66 20 98/56 95 Room Air 03/10 1901 96.1 64 16 93/54 97 Room Air Intake & Output 03/11 0800 05/05 0000 04 1600 Intake Total 100 1 Output Total Balance 100 1 Intake, Blood 100 1 Product Patient 169 lb Weight Resident Review Statement Resident Statement: examined this patient, discussed with digital intern, agreed with digital intern Other Findings: 87 yo M with PMH of A. fib s/p pacemaker (in 2016 for bradycardia) on Xarelto, chronic anemia, COPD, hypertension, hyperlipidemia, rheumatoid arthritis, CAD s/ p CABG, prostate Ca who presents with complaints of recurrent lightheadedness and was sent in by primary his primary care physician for blood transfusion. He endorses shortness of breath on exertion, generalized weakness and loose BM but denies any syncopal episodes, nausea or vomiting, abdominal pain, blurry vision or headaches. He denies unintentional weightloss, night sweats or bleeding from any orifice. He was scheduled for a colonoscopy/EGD a in March 04 to further evaluate his chronic anemia but was unable to complete the procedure due to dehydration from the bowel prep. He reports he has been stool guaiac negative and because of his chronic anemia remains unknown. Assessment 1. Severe symptomatic acute on chronic anemia 2. Hypotension 3. Mild ISHMAEL on CKD 4. Hypertension 5. Hyperlipidemia 5. Atrial fibrillation on Xarelto Plan -Observe on general medicine floor -Transfuse 1 unit of PRBC; Recheck CBC in a.m. and transfuse further if needed to keep Hb greater than 8 -Hold blood pressure medications and lasix hakeem now due to hypotension. Also hold methotrexate for now -Check Stool guaic; can resume xarelto if stool guaic is negative -Consider iron studies in AM -Resume his other important home medications -Hydrate with normal saline at 75 cc/h -Regular diet -FC Soha CABRAL,[facility] 03/11/18 1005: Attending MD Review Statement Attending Statement Attending MD Statement: examined this patient, discuss w/resident/PA/HEALTH SERVICES INFORMATION SPECIALIST, agreed w/resident/PA/HEALTH SERVICES INFORMATION SPECIALIST, discussed with family, reviewed EMR data (avail), discussed with nursing, discussed with case mgmt, reviewed images, amended to note Attending Assessment/Plan: Seen and examined independently This is a gentleman with history of atrial fibrillation was on Xeralto, COPD, hypertension, coronary artery disease with previous CABG, previous prostate cancer resection, scheduled for EGD recently but it was a poor prep, now comes in with severe symptomatic anemia, hypotension which is resolving, mild acute kidney injury on chronic kidney disease with hypertension hyperlipidemia. Patient clinically stable Plan as above Transfuse Check all guaiac for stool Hold Xeralto Discontinue IV fluids after the first liter.
[2018-03-11] VITALS: BP 112/60
--- NOTE | 2018-03-11 04:57 | PN- Housestaff ---
See Addendum Subjective Follow-up For: Symptomatic Anemia Subjective: Patient was seen and examined at bedside. He states he feels much better. He hasn't moved around since he got here last night but currently denies any feeling of lightheadedness or dizziness. Denies any chest pain, palpitations, shortness of breath or any other symptoms. Review of Systems Constitutional: Reports: no symptoms. Objective Last 24 Hrs of Vital Signs/I&O Vital Signs Date Time Temp Pulse Resp B/P B/P Pulse O2 O2 Flow FiO2 Mean Ox Delivery Rate 03/11 0000 98.3 70 22 112/60 94 Room Air 03/10 2305 98.9 72 20 105/54 98 Room Air 03/10 2140 97.7 61 20 86/48 98 Room Air 03/10 2125 98.2 63 20 88/50 98 Room Air 03/10 2019 96 Room Air Room Air 03/10 2017 98.0 66 20 98/56 95 Room Air 03/10 1901 96.1 64 16 93/54 97 Room Air Intake & Output 03/11 0800 03/11 0000 03/10 1600 Intake Total 100 1 Output Total Balance 100 1 Intake, Blood 100 1 Product Patient 169 lb Weight Physical Exam General Appearance: Alert, Oriented X3, Cooperative, No Acute Distress Skin: No Rashes, No Breakdown Skin Temp/Moisture Exam: Warm/Dry Sepsis Skin Exam (color): Normal for Ethnicity HEENT: Atraumatic Cardiovascular: Normal S1, Normal S2, MAXIMILIANO Lungs: Clear to Auscultation, Normal Air Movement Abdomen: Soft, No Tenderness Neurological: Normal Speech Extremities: No Edema Assessment/Plan Assessment: 87 yo M with PMH of A. fib on xarelto, Anemia, COPD, hypertension, hyperlipidemia, CAD s/p CABG, prostate Ca (both surgeries in 1998), IRMA was sent in to the ED by his PCP for blood transfusion. Labs on admission showed a low H& H 6.8/22.2. Assessment: 1. Symptomatic Anemia 2. ISHMAEL on CKD 3. History of A.fib s/p pacemaker on Xarelto 4. History of Hypertension, Hyperlipidemia Plan: * s/p 1 unit pRBC today. CBC from this morning is still pending. * His serum chemistries show an improvement in his Cr. He likely had ISHMAEL on CKD. * PT eval later today. * His blood pressure has improved, however, will continue to hold his antihypertensives for now. Can be restarted as blood pressure permits. * Stool guiacs * Diet: Regular * DVT Prophylaxis: ALPS only. Xarelto on hold * Code: Full Code Problem List: 1. Anemia Pain Ratin Pain Location: none Pain Goal: Remain pain free Pain Plan: none Tomorrow's Labs & Rationales: CBC, BEP
[2018-03-11 05:47] VITALS: BP 118/60
[2018-03-11 08:34] LABS: ABSOLUTE BASOPHIL COUNT 0 /CUMM (0.0-0.2); ABSOLUTE EOSINOPHIL COUNT 0.1 /CUMM (0.0-0.7); WHITE BLOOD CELL COUNT 4.6 /CUMM (4.8-10.8)
[2018-03-11 09:01] LABS: ABSOLUTE GRANULOCYTE CT 3.9 /CUMM (1.4-6.5); ABSOLUTE LYMPH COUNT 0.4 /CUMM (1.2-3.4); ABSOLUTE MONOCYTE COUNT 0.2 /CUMM (0.10-0.60); BASOPHIL % 0.1 % (0.0-2.0); EOSINOPHIL % 3.1 % (0-5); GRANULOCYTE % 83.9 % (42.2-75.2); HEMATOCRIT 21.7 % (42-52); MEAN CORPUSCULAR HGB 27.5 PG (27.0-31.0); MEAN CORPUSCULAR HGB CONC 32.1 G/DL (33.0-37.0); MEAN CORPUSCULAR VOLUME 85.7 FL (80.0-94.0); MEAN PLATELET VOLUME 7.5 FL (7.4-10.4); PLATELET COUNT 261 /CUMM (130-400); RBC DISTRIBUTION WIDTH 20.6 % (11.5-14.5); RED BLOOD CELL CT 2.53 /CUMM (4.70-6.10)
[2018-03-11 14:11] VITALS: BP 98/64
[2018-03-11 22:14] VITALS: BP 112/50
[2018-03-11 23:00] LABS: ABSOLUTE BASOPHIL COUNT 0 /CUMM (0.0-0.2); ABSOLUTE EOSINOPHIL COUNT 0.2 /CUMM (0.0-0.7); ABSOLUTE GRANULOCYTE CT 4.8 /CUMM (1.4-6.5); ABSOLUTE LYMPH COUNT 0.6 /CUMM (1.2-3.4); ABSOLUTE MONOCYTE COUNT 0.2 /CUMM (0.10-0.60); BASOPHIL % 0.3 % (0.0-2.0); EOSINOPHIL % 2.9 % (0-5); HEMATOCRIT 24.9 % (42-52); MEAN CORPUSCULAR HGB 27.5 PG (27.0-31.0); MEAN CORPUSCULAR HGB CONC 31.5 G/DL (33.0-37.0); MEAN CORPUSCULAR VOLUME 87.1 FL (80.0-94.0); MEAN PLATELET VOLUME 7.5 FL (7.4-10.4); PLATELET COUNT 248 /CUMM (130-400); RBC DISTRIBUTION WIDTH 19.1 % (11.5-14.5); RED BLOOD CELL CT 2.86 /CUMM (4.70-6.10); WHITE BLOOD CELL COUNT 5.8 /CUMM (4.8-10.8)
[2018-03-12 07:02] VITALS: BP 128/64
[2018-03-12 08:39] LABS: ABSOLUTE BASOPHIL COUNT 0 /CUMM (0.0-0.2); ABSOLUTE EOSINOPHIL COUNT 0.3 /CUMM (0.0-0.7); ABSOLUTE GRANULOCYTE CT 4.3 /CUMM (1.4-6.5); ABSOLUTE LYMPH COUNT 0.6 /CUMM (1.2-3.4); ABSOLUTE MONOCYTE COUNT 0.2 /CUMM (0.10-0.60); BASOPHIL % 0.3 % (0.0-2.0); EOSINOPHIL % 5.2 % (0-5); HEMATOCRIT 26.9 % (42-52); MEAN CORPUSCULAR HGB 27.5 PG (27.0-31.0); MEAN CORPUSCULAR HGB CONC 31.6 G/DL (33.0-37.0); MEAN CORPUSCULAR VOLUME 87.1 FL (80.0-94.0); MEAN PLATELET VOLUME 7.4 FL (7.4-10.4); PLATELET COUNT 272 /CUMM (130-400); RBC DISTRIBUTION WIDTH 20.4 % (11.5-14.5); RED BLOOD CELL CT 3.09 /CUMM (4.70-6.10); WHITE BLOOD CELL COUNT 5.5 /CUMM (4.8-10.8)
--- NOTE | 2018-03-12 08:52 | PN- Housestaff ---
Subjective Follow-up For: Symptomatic anemia, a care Subjective: No overnight events. Patient feels better than when he came in. No further lightheadedness or weakness. He is looking to go home today. Review of Systems Constitutional: Reports: no symptoms. EENTM: Reports: no symptoms. Cardiovascular: Reports: no symptoms. Respiratory: Reports: no symptoms. Gastrointestinal: Reports: no symptoms. Genitourinary: Reports: no symptoms. Musculoskeletal: Reports: no symptoms. Skin: Reports: no symptoms. Neurological/Psychological: Reports: no symptoms. Hematologic/Endocrine: Reports: no symptoms. Immunologic/Allergic: Reports: no symptoms. Objective Last 24 Hrs of Vital Signs/I&O Vital Signs Date Time Temp Pulse Resp B/P B/P Pulse O2 O2 Flow FiO2 Mean Ox Delivery Rate 03/12 0702 97.3 67 20 128/64 97 Room Air 03/11 2214 98.5 66 18 112/50 93 Room Air 03/11 1600 95 Room Air Room Air 03/11 1411 97.9 78 20 98/64 95 Room Air Intake & Output 03/12 1600 03/12 0800 05 0000 Intake Total 240 240 Output Total Balance 240 240 Intake, Oral 240 240 Physical Exam General Appearance: Alert, Oriented X3, Cooperative, No Acute Distress Cardiovascular: Regular Rate, Normal S1, Normal S2 Lungs: Clear to Auscultation Abdomen: Normal Bowel Sounds, Soft, No Tenderness Extremities: No Edema, Normal Pulses, No Tenderness/Swelling Current Medications: Current Medications Sig/Latesha Start time Last Medication Dose Route Stop Time Status Admin Acetaminophen 650 MG Q6PRN PRN 03/10 2300 AC PO Folic Acid 1 MG DAILY 03/11 1506 AC 03/11 PO 1822 Pantoprazole Sodium 40 MG DAILY 03/10 2330 AC 03/11 IV 0830 Pravastatin Sodium 10 MG 1700 03/11 1700 AC 03/11 PO 1822 Prednisone 5 MG DAILY 03/11 0900 AC 03/11 PO 0829 Sodium Chloride 1,000 ML ONCE ONE 03/11 0000 DC 03/11 IV 03/11 1319 0020 Last 24 Hrs of Lab/Avinash Results Last 24 Hrs of Labs/Mics: Laboratory Tests 03/12/18 0642: Anion Gap 9, Estimated GFR 48 L, BUN/Creatinine Ratio 30.0 H, CBC w Diff NO MAN DIFF REQ, RBC 3.09 L, MCV 87.1, MCH 27.5, MCHC 31.6 L, RDW 20.4 H, MPV 7.4, Gran % 79.0 H, Lymphocytes % 11.5 L, Monocytes % 4.0, Eosinophils % 5.2 H, Basophils % 0.3, Absolute Granulocytes 4.3, Absolute Lymphocytes 0.6 L, Absolute Monocytes 0.2, Absolute Eosinophils 0.3, Absolute Basophils 0 03/11/182052: RBC 2.86 L, MCV 87.1, MCH 27.5, MCHC 31.5 L, RDW 19.1 H, MPV 7.5, Gran % 83.0 H, Lymphocytes % 9.7 L, Monocytes % 4.1, Eosinophils % 2.9, Basophils % 0.3, Absolute Granulocytes 4.8, Absolute Lymphocytes 0.6 L, Absolute Monocytes 0.2, Absolute Eosinophils 0.2, Absolute Basophils 0 Assessment/Plan Assessment: 87 yo M with PMH of A. rita on xarelto, Anemia, COPD, hypertension, hyperlipidemia, CAD s/p CABG, prostate Ca (both surgeries in 1998), IRMA was sent in to the ED by his PCP for blood transfusion. Labs on admission showed a low H& H 6.8/22.2. Assessment: 1. Symptomatic Anemia 2. ISHMAEL on CKD 3. History of A.fib s/p pacemaker on Xarelto 4. History of Hypertension, Hyperlipidemia Plan: * s/p 1 unit pRBC yesterday. CBC from this morning is still pending. * His serum chemistries show an improvement in his Cr. He likely had ISHMAEL on CKD. * PT eval later today. * His blood pressure has improved, however, will continue to hold his antihypertensives for now. Can be restarted as blood pressure permits. Creatinine improving. * Stool guiacs * Diet: Regular * DVT Prophylaxis: ALPS only. Xarelto on hold * Code: Full Code Problem List: 1. Anemia Pain Ratin Pain Location: no Pain Goal: Remain pain free Pain Plan: see a/p Tomorrow's Labs & Rationales: cbc
--- NOTE | 2018-03-12 09:42 | PN- Pulmonary ---
Subjective HPI/Critical Care Issues: No overnight events. Patient feels better than when he came in. No further lightheadedness or weakness. He is looking to go home today. Review of Systems Constitutional: Reports: no symptoms. EENTM: Reports: no symptoms. Cardiovascular: Reports: no symptoms. Respiratory: Reports: no symptoms. Gastrointestinal: Reports: no symptoms. Genitourinary: Reports: no symptoms. Musculoskeletal: Reports: no symptoms. Skin: Reports: no symptoms. Neurological/Psychological: Reports: no symptoms. Hematologic/Endocrine: Reports: no symptoms. Immunologic/Allergic: Reports: no symptoms. Objective Current Medications: Current Medications Sig/Latesha Start time Last Medication Dose Route Stop Time Status Admin Acetaminophen 650 MG Q6PRN PRN 03/10 2300 AC PO Folic Acid 1 MG DAILY 03/11 1506 AC 03/11 PO 1822 Pantoprazole Sodium 40 MG DAILY 03/10 2330 AC 03/11 IV 0830 Pravastatin Sodium 10 MG 1700 03/11 1700 AC 03/11 PO 1822 Prednisone 5 MG DAILY 03/11 0900 AC 03/11 PO 0829 Sodium Chloride 1,000 ML ONCE ONE 03/11 0000 DC 03/11 IV 03/11 1319 0020 Vital Signs & I&O Last 24 Hrs of Vitals and I&O: Vital Signs Date Time Temp Pulse Resp B/P B/P Pulse O2 O2 Flow FiO2 Mean Ox Delivery Rate 03/12 0702 97.3 67 20 128/64 97 Room Air 03/11 2214 98.5 66 18 112/50 93 Room Air 03/11 1600 95 Room Air Room Air 03/11 1411 97.9 78 20 98/64 95 Room Air Intake & Output 03/12 1600 / 0800 05/ 0000 Intake Total 240 240 Output Total Balance 240 240 Intake, Oral 240 240 Impression/Plan Impression/Plan Impression/Plan: General Appearance: Alert, Oriented X3, Cooperative, No Acute Distress Cardiovascular: Regular Rate, Normal S1, Normal S2 Lungs: Clear to Auscultation Abdomen: Normal Bowel Sounds, Soft, No Tenderness Extremities: No Edema, Normal Pulses, No Tenderness/Swelling This is a gentleman with history of atrial fibrillation was on Xeralto, COPD, hypertension, coronary artery disease with previous CABG, previous prostate cancer resection, scheduled for EGD recently but it was a poor prep, now comes in with severe symptomatic anemia, hypotension which is resolving, mild acute kidney injury on chronic kidney disease with hypertension hyperlipidemia. He also has RA on mtx but no evidence of mtx toxicity Patient clinically stable Plan as above Check all guaiac for stool Hold Xeralto Start folic acid one mg daily Ask gi to see today if able / /ask them if he should stay here for bautista endoscopy , if so keep him in house Cardio to decide if he should cont to stay on xeralto ask them to comment aswell today or in am Keep in house today
--- NOTE | 2018-03-12 12:43 | Cons- Cardiology ---
General Information and HPI Consulting Request Date of Consult: 03/12/18 Requested By: Soha CABRAL,Filiberto Spencer Reason for Consult: anemia and anticoagulation History of Present Illness: Very pleasant gentleman with history of RA treated with MTX and low dose prednisone, sick sinus, afib, CAD, hypertension, followed by Dr Long in cardiology. Admitted for symptomatic anemia, at the recommendation of his PCP yesterday (patient called his office to report symptoms of lightheadedness). Anemia already diagnosed and patient was scheduled a month ago for an outpatient scope for which he could not complete the bowel preparation. He is anticoagulated with xarelto for afib. He denies history of stroke or TIA. Denies chest pains and palpitations. Feels significantly better since admission/IV hydration/transfusion. Allergies/Medications Allergies: Coded Allergies: NO KNOWN ALLERGIES (02/05/15) Home Med List: Folic Acid 1 MG TABLET 1 TAB PO DAILY VITAMIN SUPPORT (Reported) Furosemide (Lasix) 40 MG TABLET 1 TAB PO DAILY WATER RETENTION (Reported) Lansoprazole (Prevacid) 15 MG TAB.RAP.DR 1 TAB PO DAILY GI (Reported) place on top of the tongue let dissolve, then swallow Losartan Potassium 25 MG TABLET 1 TAB PO DAILY BP (Reported) Methotrexate 2.5 MG TABLET 2 TAB PO QMON ARTHRITIS (Reported) Metoprolol Tartrate (Lopressor) (Unknown Strength) TABLET 50 PO BID HEART ( Reported) Multivit-Min/FA/Lycopen/Lutein (Centrum Silver Tablet) 0.4 MG-300 MCG-250 MCG TABLET 1 TAB PO DAILY SUPPLEMENT (Reported) Oxybutynin Chloride (Oxybutynin Chloride ER) 10 MG TAB.ER.24 1 TAB PO DAILY BLADDER (Reported) Pravastatin Sodium 10 MG TABLET 1 TAB PO DAILY CHOLESTEROL (Reported) Prednisone 5 MG TABLET 1 TAB PO DAILY ARTHRITIS (Reported) Rivaroxaban (Xarelto) 15 MG TABLET 1 TAB PO DAILY BLOOD THINNER (Reported) Trospium Chloride (Trospium Chloride ER) 60 MG CAP.ER.24H 1 CAP PO DAILY BLADDER (Reported) Current Medications: Current Medications Sig/Latesha Start time Last Medication Dose Route Stop Time Status Admin Acetaminophen 650 MG Q6PRN PRN 03/10 2300 AC PO Bisacodyl 10 MG ONCE ONE 03/12 1000 DC 03/12 NM 03/12 1001 1059 Folic Acid 1 MG DAILY 03/11 1506 AC 03/12 PO 1058 Magnesium Citrate 300 ML ONE ONE 03/12 1245 UNVr PO 03/12 1246 Pantoprazole Sodium 40 MG DAILY 03/10 2330 AC 03/12 IV 1059 Pravastatin Sodium 10 MG 1700 03/11 1700 AC 03/11 PO 1822 Prednisone 5 MG DAILY 03/11 0900 AC 03/12 PO 1058 Sodium Chloride 1,000 ML ONCE ONE 03/11 0000 DC 03/11 IV 03/11 1319 0020 Review of Systems Review of Systems: see HPI Past History Travel History Traveled to [place] past 21 day No Medical History Blood Transfusion Hx: Yes Neurological: NONE EENT: NONE Cardiovascular: AFIB, CHF, hypertension, hyperlipidemia Respiratory: COPD, obstructive sleep apnea, LUNG INFECTION WITH BREATHING DIFF S /P Gastrointestinal: constipation Hepatic: NONE Renal: NONE Musculoskeletal: rheumatoid arthritis, LEFT TOTAL HIP REPLACE. 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 spouse Services at Home: None Primary Language: Djib[place]ian Smoking Status: Never Smoked Living Will? unknown Functional Ability ADLs Independent: dressing, eating, toileting, bathing. Ambulation: independent IADLs Independent: shopping, housework, finances, food prep, telephone, transportation , medication admin. Exam & Diagnostic Data Vital Signs and I&O Vital Signs Date Time Temp Pulse Resp B/P B/P Pulse O2 O2 Flow FiO2 Mean Ox Delivery Rate 03/12 0702 97.3 67 20 128/64 97 Room Air 03/11 2214 98.5 66 18 112/50 93 Room Air 03/11 1600 95 Room Air Room Air 03/11 1411 97.9 78 20 98/64 95 Room Air Intake & Output 03/12 1600 03/12 0800 03/12 0000 03/11 1600 03/11 0800 03/11 0000 Intake Total 400 358 9696 550 1 Output Total Balance 779 029 9274 550 1 Intake, Blood 100 1 Product Intake, IV 950 450 Intake, Oral 229 034 2722 Number 0 Bowel Movements Patient 169 lb Weight Physical Exam: General Appearance: Alert, Oriented X3, comfortable Neck: No JCD, trachea midline Cardiovascular: irregular rate, systolic ejection murmur 2/6 LLSB. Lungs: Clear to Auscultation Abdomen: Normal Bowel Sounds, Soft, No Tenderness Extremities: No Edema, good capillary refill Labs/Avinash Results: Laboratory Tests 03/12 05 0642 2053 Chemistry Sodium (137 - 145 mmol/L) 141 Potassium (3.5 - 5.1 mmol/L) 4.2 Chloride (98 - 107 mmol/L) 106 Carbon Dioxide (22 - 30 mmol/L) 26 Anion Gap (5 - 16) 9 BUN (9 - 20 mg/dL) 42 H Creatinine (0.7 - 1.2 mg/dL) 1.4 H Estimated GFR (>60 ml/min) 48 L BUN/Creatinine Ratio (7 - 25 %) 30.0 H Hematology CBC w Diff NO MAN DIFF REQ WBC (4.8 - 10.8 /CUMM) 5.5 5.8 RBC (4.70 - 6.10 /CUMM) 3.09 L 2.86 L Hgb (14.0 - 18.0 G/DL) 8.5 L 7.9 L Hct (42 - 52 %) 26.9 L 24.9 L MCV (80.0 - 94.0 FL) 87.1 87.1 MCH (27.0 - 31.0 PG) 27.5 27.5 MCHC (33.0 - 37.0 G/DL) 31.6 L 31.5 L RDW (11.5 - 14.5 %) 20.4 H 19.1 H Plt Count (130 - 400 /CUMM) 272 248 MPV (7.4 - 10.4 FL) 7.4 7.5 Gran % (42.2 - 75.2 %) 79.0 H 83.0 H Lymphocytes % (20.5 - 51.1 %) 11.5 L 9.7 L Monocytes % (1.7 - 9.3 %) 4.0 4.1 Eosinophils % (0 - 5 %) 5.2 H 2.9 Basophils % (0.0 - 2.0 %) 0.3 0.3 Absolute Granulocytes (1.4 - 6.5 /CUMM) 4.3 4.8 Absolute Lymphocytes (1.2 - 3.4 /CUMM) 0.6 L 0.6 L Absolute Monocytes (0.10 - 0.60 /CUMM) 0.2 0.2 Absolute Eosinophils (0.0 - 0.7 /CUMM) 0.3 0.2 Absolute Basophils (0.0 - 0.2 /CUMM) 0 0 /03/10 9064 Chemistry Sodium (137 - 145 mmol/L) 139 141 Potassium (3.5 - 5.1 mmol/L) 4.2 4.7 Chloride (98 - 107 mmol/L) 102 99 Carbon Dioxide (22 - 30 mmol/L) 26 30 Anion Gap (5 - 16) 10 11 BUN (9 - 20 mg/dL) 53 H 58 H Creatinine (0.7 - 1.2 mg/dL) 1.7 H 1.9 H Estimated GFR (>60 ml/min) 38 L 34 L BUN/Creatinine Ratio (7 - 25 %) 31.2 H 30.5 H Glucose (65 - 99 mg/dL) 106 H Calcium (8.4 - 10.2 mg/dL) 8.9 Ferritin (17.9 - 464 ng/mL) 19.2 Total Bilirubin (0.2 - 1.3 mg/dL) 0.6 AST (17 - 59 U/L) 18 ALT (21 - 72 U/L) 20 L Alkaline Phosphatase (< 127 U/L) 68 Troponin I (<0.11 ng/ml) 0.02 Total Protein (6.3 - 8.2 g/dL) 5.6 L Albumin (3.5 - 5.0 g/dL) 3.3 L Globulin (1.9 - 4.2 gm/dL) 2.3 Albumin/Globulin Ratio (1.1 - 2.2 %) 1.4 Folate (2.76 - 20.0 ng/mL) > 20.0 H Hematology CBC w Diff NO MAN DIFF REQ NO MAN DIFF REQ WBC (4.8 - 10.8 /CUMM) 4.6 L 6.4 RBC (4.70 - 6.10 /CUMM) 2.53 L 2.57 L Hgb (14.0 - 18.0 G/DL) 7.0 *L 6.8 *L Hct (42 - 52 %) 21.7 L 22.2 L MCV (80.0 - 94.0 FL) 85.7 86.6 MCH (27.0 - 31.0 PG) 27.5 26.6 L MCHC (33.0 - 37.0 G/DL) 32.1 L 30.8 L RDW (11.5 - 14.5 %) 20.6 H 22.4 H Plt Count (130 - 400 /CUMM) 261 364 MPV (7.4 - 10.4 FL) 7.5 6.5 L Gran % (42.2 - 75.2 %) 83.9 H 80.8 H Lymphocytes % (20.5 - 51.1 %) 9.5 L 9.5 L Monocytes % (1.7 - 9.3 %) 3.4 6.1 Eosinophils % (0 - 5 %) 3.1 3.3 Basophils % (0.0 - 2.0 %) 0.1 0.3 Absolute Granulocytes (1.4 - 6.5 /CUMM) 3.9 5.2 Absolute Lymphocytes (1.2 - 3.4 /CUMM) 0.4 L 0.6 L Absolute Monocytes (0.10 - 0.60 /CUMM) 0.2 0.4 Absolute Eosinophils (0.0 - 0.7 /CUMM) 0.1 0.2 Absolute Basophils (0.0 - 0.2 /CUMM) 0 0 Assessment/Plan Assessment/Plan Anemia likely secondary to GI spoliation. RA on chronic MTX and low prednisone, CAD s/p CABG, Atrial fibrillation and SSS with INFORMATION TECHNOLOGY ARCHITECT in place. Atrial fibrillation CHADS-VASC score 4-5, therefore annual stroke risk ~ 5% if not anticoagulated. I would definitely not Xarelto until Hb is stabilized and source of bleeding is found and treated. patient to follow up with Dr Long. Consult Acknowledgment - Thank you for your consult request.
[2018-03-12 14:31] VITALS: BP 122/64
--- NOTE | 2018-03-12 16:42 | Cons- Gastroenterology ---
General Information and HPI Consulting Request Date of Consult: 03/12/18 (MD ABE/GASTROENTEROLOGY) Requested By: Emir CABRAL,Deb Riggs Reason for Consult: Iron deficiency anemia History of Present Illness: The patient has a long-standing history of GERD, and has been having breakthrough symptoms on a regular basis (heartburn, no dysphagia, some odynophagia consisting of pressure with swallowing). He has had no nausea, vomiting, dyspepsia, abdominal pain, or alteration in bowel habits. There has been no evident blood per rectum/black stool. He and his believe he had an EGD and colonoscopy in [place] about 5 years ago, but don't remember details. He has been on Xarelto (atrial fibrillation, trifascicular block pacemaker, CABG , pulmonary hypertension), and prednisone/methotrexate (rheumatoid arthritis), but no aspirin or NSAIDs. He has lost 30 pounds unintentionally over the past year. He was found to be anemic and saw Dr. Ahmadi in February. He was scheduled for EGD/colonoscopy, but this was canceled because he became weak/dehydrated with his preparation. He was admitted briefly and transfused. Subsequently he has become more fatigued, and is now admitted with symptomatic anemia including lightheadedness, presyncope, and shortness of breath on exertion. He has received 2 units of packed red blood cells and feels better. Blood work has demonstrated iron deficiency. Past medical history is as above and also includes COPD and prostate cancer. He does not smoke cigarettes, nor use alcohol. Family history is negative for GI malignancy. Allergies/Medications Allergies: Coded Allergies: NO KNOWN ALLERGIES (02/05/15) Home Med List: Folic Acid 1 MG TABLET 1 TAB PO DAILY VITAMIN SUPPORT (Reported) Furosemide (Lasix) 40 MG TABLET 1 TAB PO DAILY WATER RETENTION (Reported) Lansoprazole (Prevacid) 15 MG TAB.RAP.DR 1 TAB PO DAILY GI (Reported) place on top of the tongue let dissolve, then swallow Losartan Potassium 25 MG TABLET 1 TAB PO DAILY BP (Reported) Methotrexate 2.5 MG TABLET 2 TAB PO QMON ARTHRITIS (Reported) Metoprolol Tartrate (Lopressor) (Unknown Strength) TABLET 50 PO BID HEART ( Reported) Multivit-Min/FA/Lycopen/Lutein (Centrum Silver Tablet) 0.4 MG-300 MCG-250 MCG TABLET 1 TAB PO DAILY SUPPLEMENT (Reported) Oxybutynin Chloride (Oxybutynin Chloride ER) 10 MG TAB.ER.24 1 TAB PO DAILY BLADDER (Reported) Pravastatin Sodium 10 MG TABLET 1 TAB PO DAILY CHOLESTEROL (Reported) Prednisone 5 MG TABLET 1 TAB PO DAILY ARTHRITIS (Reported) Rivaroxaban (Xarelto) 15 MG TABLET 1 TAB PO DAILY BLOOD THINNER (Reported) Trospium Chloride (Trospium Chloride ER) 60 MG CAP.ER.24H 1 CAP PO DAILY BLADDER (Reported) Current Medications: Current Medications Sig/Latesha Start time Last Medication Dose Route Stop Time Status Admin Acetaminophen 650 MG Q6PRN PRN 03/10 2300 AC PO Bisacodyl 10 MG ONCE ONE 03/12 1000 DC 03/12 MT 03/12 1001 1059 Folic Acid 1 MG DAILY 03/11 1506 AC 03/12 PO 1058 Magnesium Citrate 300 ML ONE ONE 03/12 1245 DC PO 03/12 1246 Pantoprazole Sodium 40 MG DAILY 03/10 2330 AC 03/12 IV 1059 Pravastatin Sodium 10 MG 1700 03/11 1700 AC 05 PO 1822 Prednisone 5 MG DAILY 03/11 0900 AC 05/ PO 1058 Past History Travel History Traveled to [place] past 21 day No Medical History Blood Transfusion Hx: Yes Neurological: NONE EENT: NONE Cardiovascular: AFIB, CHF, hypertension, hyperlipidemia Respiratory: COPD, obstructive sleep apnea, LUNG INFECTION WITH BREATHING DIFF S /P Gastrointestinal: constipation Hepatic: NONE Renal: NONE Musculoskeletal: rheumatoid arthritis, LEFT TOTAL HIP REPLACE. 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 Home Who Do You Live With? spouse Services at Home: None Primary Language: Danish Smoking Status: Never Smoked Living Will? unknown Functional Ability ADLs Independent: dressing, eating, toileting, bathing. Ambulation: independent IADLs Independent: shopping, housework, finances, food prep, telephone, transportation , medication admin. Review of Systems Review of Systems Constitutional: Reports: unexplained weight loss. Denies: chills, fever. EENTM: Denies: icterus, epistaxis. Cardiovascular: Reports: chest pain. Denies: edema, palpitations, syncope. Respiratory: Reports: short of breath. Denies: cough. GI: Reports: see HPI. Genitourinary: Denies: dysuria, hematuria. Musculoskeletal: Denies: muscle stiffness, neck pain. Skin: Denies: jaundice, lesions. Neurological/Psychological: Denies: cognitive dysfunction, headache. Hematologic/Endocrine: Denies: bruising, bleeding. Exam & Diagnostic Data Vital Signs and I&O Vital Signs Date Time Temp Pulse Resp B/P B/P Pulse O2 O2 Flow FiO2 Mean Ox Delivery Rate 03/12 1431 97.5 66 18 122/64 98 Room Air 03/12 0702 97.3 67 20 128/64 97 Room Air 03/11 2214 98.5 66 18 112/50 93 Room Air Intake & Output 03/12 0400 03/11 0400 03/10 1600 03/10 0400 Intake Total 4126 572 3018 101 Output Total Balance 5604 929 1556 101 Intake, Blood 101 Product Intake, IV 0 1400 Intake, Oral 8732 108 5339 Number 2 0 Bowel Movements Patient 169 lb Weight Weight Bed scale Measurement Method Physical Exam: Well-developed, well-nourished, in no apparent distress. Alert and oriented with normal cognition. Skin without rash, lesion, jaundice, stigmata chronic liver disease, petechiae, purpura. No adenopathy. No scleral icterus, oropharyngeal lesion, neck mass or thyromegaly. Heart with irregular rhythm. Chest with pacemaker. Lungs clear bilaterally. Abdomen soft, nondistended, nontender, normal bowel sounds, no palpable mass or organomegaly. Extremities without clubbing, cyanosis or edema. 1+ pulses distally. Results Pertinent Lab Results: Laboratory Tests 03/12 Chemistry Sodium (137 - 145 mmol/L) 141 Potassium (3.5 - 5.1 mmol/L) 4.2 Chloride (98 - 107 mmol/L) 106 Carbon Dioxide (22 - 30 mmol/L) 26 Anion Gap (5 - 16) 9 BUN (9 - 20 mg/dL) 42 H Creatinine (0.7 - 1.2 mg/dL) 1.4 H Estimated GFR (>60 ml/min) 48 L BUN/Creatinine Ratio (7 - 25 %) 30.0 H Hematology CBC w Diff NO MAN DIFF REQ WBC (4.8 - 10.8 /CUMM) 5.5 5.8 RBC (4.70 - 6.10 /CUMM) 3.09 L 2.86 L Hgb (14.0 - 18.0 G/DL) 8.5 L 7.9 L Hct (42 - 52 %) 26.9 L 24.9 L MCV (80.0 - 94.0 FL) 87.1 87.1 MCH (27.0 - 31.0 PG) 27.5 27.5 MCHC (33.0 - 37.0 G/DL) 31.6 L 31.5 L RDW (11.5 - 14.5 %) 20.4 H 19.1 H Plt Count (130 - 400 /CUMM) 272 248 MPV (7.4 - 10.4 FL) 7.4 7.5 Gran % (42.2 - 75.2 %) 79.0 H 83.0 H Lymphocytes % (20.5 - 51.1 %) 11.5 L 9.7 L Monocytes % (1.7 - 9.3 %) 4.0 4.1 Eosinophils % (0 - 5 %) 5.2 H 2.9 Basophils % (0.0 - 2.0 %) 0.3 0.3 Absolute Granulocytes (1.4 - 6.5 /CUMM) 4.3 4.8 Absolute Lymphocytes (1.2 - 3.4 /CUMM) 0.6 L 0.6 L Absolute Monocytes (0.10 - 0.60 /CUMM) 0.2 0.2 Absolute Eosinophils (0.0 - 0.7 /CUMM) 0.3 0.2 Absolute Basophils (0.0 - 0.2 /CUMM) 0 0 05/05 05/04 0645 1924 Chemistry Sodium (137 - 145 mmol/L) 139 141 Potassium (3.5 - 5.1 mmol/L) 4.2 4.7 Chloride (98 - 107 mmol/L) 102 99 Carbon Dioxide (22 - 30 mmol/L) 26 30 Anion Gap (5 - 16) 10 11 BUN (9 - 20 mg/dL) 53 H 58 H Creatinine (0.7 - 1.2 mg/dL) 1.7 H 1.9 H Estimated GFR (>60 ml/min) 38 L 34 L BUN/Creatinine Ratio (7 - 25 %) 31.2 H 30.5 H Glucose (65 - 99 mg/dL) 106 H Calcium (8.4 - 10.2 mg/dL) 8.9 Ferritin (17.9 - 464 ng/mL) 19.2 Total Bilirubin (0.2 - 1.3 mg/dL) 0.6 AST (17 - 59 U/L) 18 ALT (21 - 72 U/L) 20 L Alkaline Phosphatase (< 127 U/L) 68 Troponin I (<0.11 ng/ml) 0.02 Total Protein (6.3 - 8.2 g/dL) 5.6 L Albumin (3.5 - 5.0 g/dL) 3.3 L Globulin (1.9 - 4.2 gm/dL) 2.3 Albumin/Globulin Ratio (1.1 - 2.2 %) 1.4 Folate (2.76 - 20.0 ng/mL) > 20.0 H Hematology CBC w Diff NO MAN DIFF REQ NO MAN DIFF REQ WBC (4.8 - 10.8 /CUMM) 4.6 L 6.4 RBC (4.70 - 6.10 /CUMM) 2.53 L 2.57 L Hgb (14.0 - 18.0 G/DL) 7.0 *L 6.8 *L Hct (42 - 52 %) 21.7 L 22.2 L MCV (80.0 - 94.0 FL) 85.7 86.6 MCH (27.0 - 31.0 PG) 27.5 26.6 L MCHC (33.0 - 37.0 G/DL) 32.1 L 30.8 L RDW (11.5 - 14.5 %) 20.6 H 22.4 H Plt Count (130 - 400 /CUMM) 261 364 MPV (7.4 - 10.4 FL) 7.5 6.5 L Gran % (42.2 - 75.2 %) 83.9 H 80.8 H Lymphocytes % (20.5 - 51.1 %) 9.5 L 9.5 L Monocytes % (1.7 - 9.3 %) 3.4 6.1 Eosinophils % (0 - 5 %) 3.1 3.3 Basophils % (0.0 - 2.0 %) 0.1 0.3 Absolute Granulocytes (1.4 - 6.5 /CUMM) 3.9 5.2 Absolute Lymphocytes (1.2 - 3.4 /CUMM) 0.4 L 0.6 L Absolute Monocytes (0.10 - 0.60 /CUMM) 0.2 0.4 Absolute Eosinophils (0.0 - 0.7 /CUMM) 0.1 0.2 Absolute Basophils (0.0 - 0.2 /CUMM) 0 0 Assessment/Plan Assessment/Recommendations: Anticoagulated patient with chronic anemia, with recent exacerbation and evidence of iron deficiency, concerning for chronic, occult GI blood loss. Symptomatic GERD despite maintenance (low dose) lansoprazole therapy. No overt bleeding. Involuntary weight loss. The patient is a candidate for endoscopic evaluation, and this is best done while hospitalized given recent intolerance to preparation (dehydration, cancellation of outpatient procedures). Anticoagulation has been held since admission (although given azotemia, Xarelto still likely not completely cleared). Recommendations * Clear liquid diet; nothing by mouth after midnight * EGD/colonoscopy tomorrow * Magnesium citrate one bottle today * 2 1-L tap water enemas in the morning * Continue to hold anticoagulation * CBC in the morning; transfuse as necessary to maintain hemoglobin greater than 8 * PPI * Appreciate cardiology consultation Copies To: Ethan CABRAL,Vernon Spencer; Josefa CABRAL,Antoni Consult Acknowledgment - Thank you for your consult request.
[2018-03-12 21:29] VITALS: BP 108/58
[2018-03-13 05:50] VITALS: BP 115/82
--- NOTE | 2018-03-13 07:01 | PN- Housestaff ---
Subjective Follow-up For: Blood loss anemia Complaints: no complaints Subjective: Patient seen and examined at bedside. No overnight events. Complaints of weakness after taking GoLYTELY. Denies shortness of breath/chest pain/abdominal pain. Review of Systems Constitutional: Reports: no symptoms, see HPI. Objective Last 24 Hrs of Vital Signs/I&O Vital Signs Date Time Temp Pulse Resp B/P B/P Pulse O2 O2 Flow FiO2 Mean Ox Delivery Rate 03/13 0550 97.6 85 20 115/82 92 Room Air 03/13 0000 Room Air 03/12 2129 97.8 64 19 108/58 98 Room Air 03/12 1431 97.5 66 18 122/64 98 Room Air Intake & Output 03/13 1600 03/13 0800 03/13 0000 Intake Total 1410 1410 Output Total Balance 1410 1410 Intake, IV 10 10 Intake, Oral 1400 1400 Number 3 2 Bowel Movements Patient 180 lb Weight Physical Exam General Appearance: Alert, Oriented X3, Cooperative Cardiovascular: Regular Rate, Normal S1, Normal S2, No Murmurs Lungs: Clear to Auscultation Abdomen: Soft, No Tenderness, No Hepatospenomegaly Neurological: Normal Speech, Normal Tone, Sensation Intact, Cranial Nerves 3-12 NL Extremities: No Edema Current Medications: Current Medications Sig/Latesha Start time Last Medication Dose Route Stop Time Status Admin Acetaminophen 650 MG Q6PRN PRN 03/10 2300 AC PO Folic Acid 1 MG DAILY 03/11 1506 AC 03/12 PO 1058 Metoclopramide HCl 10 MG ONCE ONE 03/13 1000 DC 03/13 IV 03/13 1001 0952 Ondansetron HCl 4 MG ONCE ONE 03/13 1000 CAN IV 03/13 1001 Pantoprazole Sodium 40 MG DAILY 03/10 2330 AC 03/13 IV 0952 Polyethylene Glycol 1 GAL 03/12 DC 03/12 PO 2026 Pravastatin Sodium 10 MG 1700 03/11 1700 AC / PO 1703 Prednisone 5 MG DAILY 03/11 0900 AC 03/12 PO 1058 Last 24 Hrs of Lab/Avinash Results Last 24 Hrs of Labs/Mics: Laboratory Tests 03/13/18 0815: CBC w Diff NO MAN DIFF REQ, RBC 3.48 L, MCV 87.5, MCH 27.6, MCHC 31.5 L, RDW 19.5 H, MPV 7.4, Gran % 78.1 H, Lymphocytes % 11.7 L, Monocytes % 6.0, Eosinophils % 4.0, Basophils % 0.2, Absolute Granulocytes 6.2, Absolute Lymphocytes 0.9 L, Absolute Monocytes 0.5, Absolute Eosinophils 0.3, Absolute Basophils 0 Assessment/Plan Assessment: 87 yo M with PMH of [place] on xarelto, Anemia, COPD, hypertension, hyperlipidemia, CAD s/p CABG, prostate Ca (both surgeries in 1998), IRMA was sent in to the ED by his PCP for blood transfusion. Labs on admission showed a low H& H 6.8/22.2. Assessment: 1. Symptomatic Anemia-possible GI source. 2. ISHMAEL on CKD 3. History of A.fib s/p pacemaker on Xarelto 4. History of Hypertension, Hyperlipidemia Plan: * s/p 2 unit pRBC yesterday. Today hemoglobin is 9.6/30.4. pt going for endo/ colonoscopy today. GI follow up appreciated * His serum chemistries show an improvement in his Cr.Todays cr is 1.4. He likely had ISHMAEL on CKD. * PT eval -HOME PT * His blood pressure has improved, however, will continue to hold his antihypertensives for now. Can be restarted as blood pressure permits. * Stool guiacs-negative * Diet: Regular * DVT Prophylaxis: ALPS only. Xarelto on hold * Code: Full Code Problem List: 1. Anemia 2. HLD (hyperlipidemia) 3. HTN (hypertension) Pain Ratin Pain Location: none Pain Goal: Remain pain free Pain Plan: tylenol Tomorrow's Labs & Rationales: cbc,bep
[2018-03-13 08:50] LABS: ABSOLUTE BASOPHIL COUNT 0 /CUMM (0.0-0.2); ABSOLUTE EOSINOPHIL COUNT 0.3 /CUMM (0.0-0.7); ABSOLUTE GRANULOCYTE CT 6.2 /CUMM (1.4-6.5); ABSOLUTE LYMPH COUNT 0.9 /CUMM (1.2-3.4); ABSOLUTE MONOCYTE COUNT 0.5 /CUMM (0.10-0.60); BASOPHIL % 0.2 % (0.0-2.0); GRANULOCYTE % 78.1 % (42.2-75.2); HEMATOCRIT 30.4 % (42-52); MEAN CORPUSCULAR HGB 27.6 PG (27.0-31.0); MEAN CORPUSCULAR HGB CONC 31.5 G/DL (33.0-37.0); MEAN CORPUSCULAR VOLUME 87.5 FL (80.0-94.0); MEAN PLATELET VOLUME 7.4 FL (7.4-10.4); PLATELET COUNT 320 /CUMM (130-400); RBC DISTRIBUTION WIDTH 19.5 % (11.5-14.5); RED BLOOD CELL CT 3.48 /CUMM (4.70-6.10); WHITE BLOOD CELL COUNT 7.9 /CUMM (4.8-10.8)
--- NOTE | 2018-03-13 11:15 | PN- Att Addend ---
Attending Addendum Attending Brief Note Evidence over the weekend noted, patient was advised to come to the hospital he wasn't feeling well. Admitted with blood loss anemia probable GI origin. Was seen by cardiology and GI would have his endoscopist today with was feeling a little better today less dizzy. Will monitor labs closely follow cardiology's recommendations regarding anticoagulation. 24 TOTALS 03/13 0000 03/12 0000 Intake Total 2910 3540 Output Total Balance 2910 3540 Intake, Blood 100 Product Intake, IV 10 1400 Intake, Oral 2900 2040 Number 4 0 Bowel Movements Weight Bed scale Measurement Method Current Medications Sig/Latesha Start time Last Medication Dose Route Stop Time Status Admin Acetaminophen 650 MG Q6PRN PRN 03/10 2300 AC PO Folic Acid 1 MG DAILY 03/11 1506 AC 03/12 PO 1058 Magnesium Citrate 300 ML ONE ONE 03/12 1245 DC PO 03/12 1246 Metoclopramide HCl 10 MG ONCE ONE 03/13 1000 DC 03/13 IV 03/13 1001 0952 Ondansetron HCl 4 MG ONCE ONE 03/13 1000 CAN IV 03/13 1001 Pantoprazole Sodium 40 MG DAILY 03/10 2330 AC 03/13 IV 0952 Polyethylene Glycol 1 GAL 03/12 AC 03/12 PO 2026 Pravastatin Sodium 10 MG 1700 03/11 1700 AC 03/12 PO 1703 Prednisone 5 MG DAILY 03/11 0900 AC 03/12 PO 1058 Laboratory Tests 03/13/18 0815: CBC w Diff NO MAN DIFF REQ, RBC 3.48 L, MCV 87.5, MCH 27.6, MCHC 31.5 L, RDW 19.5 H, MPV 7.4, Gran % 78.1 H, Lymphocytes % 11.7 L, Monocytes % 6.0, Eosinophils % 4.0, Basophils % 0.2, Absolute Granulocytes 6.2, Absolute Lymphocytes 0.9 L, Absolute Monocytes 0.5, Absolute Eosinophils 0.3, Absolute Basophils 0 03/12/18 0642: Anion Gap 9, Estimated GFR 48 L, BUN/Creatinine Ratio 30.0 H, CBC w Diff NO MAN DIFF REQ, RBC 3.09 L, MCV 87.1, MCH 27.5, MCHC 31.6 L, RDW 20.4 H, MPV 7.4, Gran % 79.0 H, Lymphocytes % 11.5 L, Monocytes % 4.0, Eosinophils % 5.2 H, Basophils % 0.3, Absolute Granulocytes 4.3, Absolute Lymphocytes 0.6 L, Absolute Monocytes 0.2, Absolute Eosinophils 0.3, Absolute Basophils 0 03/11/182052: RBC 2.86 L, MCV 87.1, MCH 27.5, MCHC 31.5 L, RDW 19.1 H, MPV 7.5, Gran % 83.0 H, Lymphocytes % 9.7 L, Monocytes % 4.1, Eosinophils % 2.9, Basophils % 0.3, Absolute Granulocytes 4.8, Absolute Lymphocytes 0.6 L, Absolute Monocytes 0.2, Absolute Eosinophils 0.2, Absolute Basophils 0 Vital Signs Date Time Temp Pulse Resp B/P B/P Pulse O2 O2 Flow FiO2 Mean Ox Delivery Rate 03/13 0550 97.6 85 20 115/82 92 Room Air 03/13 0000 Room Air 03/12 2129 97.8 64 19 108/58 98 Room Air 03/12 1431 97.5 66 18 122/64 98 Room Air
[2018-03-13 14:20] VITALS: BP 94/52
--- NOTE | 2018-03-13 14:31 | Proc Note Endoscopy ---
Endoscopy Procedure Procedure Date: 03/13/18 Procedure Type: EGD (preceding colonoscopy) Conveyor Monitor: Deven Walker M.D. ASA Classification: IV Indications: GERD Iron deficiency anemia Instrument: diagnostic gastroscope Meds Received: MAC (O2 mask) Patient's Tolerance: good Complications: none Extent Reached: second part of duodenum Procedure: The patient signed informed consent for EGD and colonoscopy, and was medicated. Lidocaine pharyngeal spray was administered. Pulse oximetry, blood pressure and cardiac monitoring were performed continuously throughout the procedure. The Olympus high-definition gastroscope was inserted into the mouth and advanced to the duodenum. Retroflexion was performed within the stomach to examine the cardia. Careful examination was performed. Findings: The esophagus had normal caliber and contour. The proximal mucosa was normal. There was distal edema, and ulceration with bumpiness and exudate (between 36 and 38 cm). There was erythema at and above the GE junction (38 cm). There was no stricture or ring. There was a large hiatal hernia, with relatively small diaphragmatic hiatus. There was no erythema at the retroflexion. Retroflexed view from within the stomach demonstrated a long Kennedy's erosion. The stomach had normal distention. The cardia was as above and otherwise normal. The mucosa and folds of the stomach were normal. There was mild prepyloric edema. The pyloric channel was normal. The duodenal bulb was normal. Mucosa and folds of the duodenal sweep were normal. Impression: * Ulcerative esophagitis * Large hiatal hernia * Kennedy's erosion Recommendations: * Increase pantoprazole to twice a day dose * Given age and comorbidities, poor candidate for hiatal hernia surgery * Colonoscopy immediately followed this EGD; see report CC: Ethan CABRAL,Vernon Spencer; Josefa CABRAL,Antoni
--- NOTE | 2018-03-13 14:35 | Proc Note Colonoscopy ---
See Addendum Colonoscopy Procedure Date of Last Colonoscopy: "5 years ago" Procedure Date: 03/13/18 Procedure Type: colonoscopy w/polypectomy Subsystems Engineer: Deven Walker M.D. ASA Classification: IV Indications: Iron deficiency anemia Instrument (Colonoscope): single channel Meds Received: MAC (O2 via mask) Patient's Tolerance: good Complications: none Extent Reached: cecum Prep: fairly good Procedure: Following the initial EGD, the patient was placed in the Velázquez position, and medicated. Examination of the rectum demonstrated a congested anal canal. The Olympus high-definition variable stiffness colonoscope was inserted through the anus and advanced to the cecum, identified by the appendiceal orifice and ileocecal valve. Retroflexion was not performed in the rectum, but the entire rectum was seen. Careful examination was performed. There was adequate withdrawal time. Findings: There was focal distal rectal edema. The rectum was otherwise normal. There were diverticula in the sigmoid, and several in the descending colon. In the transverse colon, there were 2 pedunculated subcentimeter polyps, each of which was resected with electrocautery snare and 25 W. coagulative current (magnet placed over pacemaker). The ascending colon and cecum were normal. There were no evident vascular lesions such as angiodysplasias. Impression: * Polyps * Diverticulosis Recommendations: * Await pathology * Adequate fiber and Followup Colonscopy Screen In: given age, none planned CC: Ethan CABRAL,Vernon Spencer; Josefa CABRAL,Antoni
[2018-03-13 22:04] VITALS: BP 110/52
[2018-03-14 06:45] VITALS: BP 100/64
--- NOTE | 2018-03-14 07:07 | PN- Housestaff ---
Subjective Follow-up For: Blood loss anemia Complaints: cough Subjective: Patient seen and examined at bedside. No overnight events. Complaints of 1 episode of cough when he woke up with no sputum production. Denies fever/chills /chest pain/shortness of breath. Review of Systems Constitutional: Reports: no symptoms. Cardiovascular: Reports: no symptoms. Respiratory: Reports: cough. Gastrointestinal: Reports: no symptoms. Genitourinary: Reports: no symptoms. Objective Last 24 Hrs of Vital Signs/I&O Vital Signs Date Time Temp Pulse Resp B/P B/P Pulse O2 O2 Flow FiO2 Mean Ox Delivery Rate 03/14 800 97 Room Air 03/14 0748 Room Air Room Air 03/14 0645 97.8 70 20 100/64 97 Room Air 03/14 0000 98 Room Air 03/13 2204 98.4 67 20 110/52 98 Room Air 03/13 1420 98.0 61 18 94/52 94 Room Air Intake & Output 03/14 1600 03/14 0800 05 0000 Intake Total 0 480 Output Total 0 Balance 0 480 Intake, Oral 0 480 Number 0 Bowel Movements Output, Urine 0 Patient 183 lb Weight Weight Bed scale Measurement Method Physical Exam General Appearance: Alert, Oriented X3, Cooperative, No Acute Distress Cardiovascular: Regular Rate, Normal S1, Normal S2, No Murmurs Lungs: bilateral mild wheeze Abdomen: Soft, No Tenderness, No Hepatospenomegaly, No Masses Neurological: Strength at 5/5 X4 Ext, Normal Tone, Sensation Intact Current Medications: Current Medications Sig/Latesha Start time Last Medication Dose Route Stop Time Status Admin Acetaminophen 650 MG Q6PRN PRN 03/10 2300 AC PO Albuterol Sulfate 3 ML EVERY 6HRS- NEED.. 03/14 0800 AC 03/14 INH 0755 Folic Acid 1 MG DAILY 03/11 1506 AC 03/13 PO 1716 Lidocaine 1 WON .STK-MED ONE 03/13 1430 DC TOP 03/13 1431 Lidocaine 50 ML .STK-MED ONE 03/13 1430 DC TOP 03/13 1431 Melatonin 3 MG AT BEDTIME PRN 03/13 2245 AC 03/13 PO 2258 Metoclopramide HCl 10 MG ONCE ONE 03/13 1000 DC 03/13 IV 03/13 1001 0952 Ondansetron HCl 4 MG ONCE ONE 03/13 1000 CAN IV 03/13 1001 Pantoprazole Sodium 40 MG BID 03/13 2100 AC 03/13 IV 2102 Pantoprazole Sodium 40 MG DAILY 03/10 2330 DC 03/13 IV 0952 Polyethylene Glycol 1 GAL 03/12 DC 03/12 PO 2025 Pravastatin Sodium 10 MG 1700 03/11 1700 AC 05/ PO 171 Prednisone 5 MG DAILY 03/11 0900 AC 05/ PO 171 Rivaroxaban 15 MG DAILY 03/14 09 AC PO Last 24 Hrs of Lab/Avinash Results Last 24 Hrs of Labs/Mics: Laboratory Tests 03/14/18 07: Anion Gap 10, Estimated GFR 48 L, BUN/Creatinine Ratio 18.6, CBC w Diff NO MAN DIFF REQ, RBC 3.14 L, MCV 87.4, MCH 27.3, MCHC 31.2 L, RDW 20.3 H, MPV 7.4, Gran % 79.6 H, Lymphocytes % 11.0 L, Monocytes % 6.0, Eosinophils % 3.2, Basophils % 0.2, Absolute Granulocytes 4.2, Absolute Lymphocytes 0.6 L, Absolute Monocytes 0.3, Absolute Eosinophils 0.2, Absolute Basophils 0 Assessment/Plan Assessment: 87 yo M with PMH of A. fib on xarelto, Anemia, COPD, hypertension, hyperlipidemia, CAD s/p CABG, prostate Ca (both surgeries in 1998), IRMA was sent in to the ED by his PCP for blood transfusion. Labs on admission showed a low H& H 6.8/22.2. Assessment: 1. Symptomatic Anemia-possible GI source. 2. 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 History of A.fib s/p pacemaker on Xarelto,HFpEF 4. History of Hypertension, Hyperlipidemia Plan: * s/p 2 unit pRBC yesterday. Today hemoglobin is 8.6/30.4. Patient had endoscopy and colonoscopy yesterday. Found to have polyps/erosive esophagitis/ [place] lesion. Patient was seen by bar back who suggested to advance her diet and discharge the patient and follow-up with Dr. Agee as outpatient. His anticoagulation can be resumed as per gastroenterology. Patient has chronic anemia which needs to be evaluated by the refrigerator repairman. * His serum chemistries stable Todays cr is 1.4. He likely had ISHMAEL on CKD. * Cough With no sputum production-bilateral wheeze. Patient has a history of COPD and on his inhalers. We will start him on TRC nebulization. * PT eval -HOME PT * His blood pressure has improved, however, will continue to hold his antihypertensives for now. Can be restarted as blood pressure permits. * Stool guiacs-negative * Diet: Regular * DVT Prophylaxis: ALPS only. * Code: Full Code Problem List: 1. GI bleed 2. Anemia Pain Ratin Pain Location: none Pain Goal: Remain pain free Pain Plan: tylenol Tomorrow's Labs & Rationales: cbc,bep
--- NOTE | 2018-03-14 07:58 | Patient Discharge Instructions ---
Discharge Instructions General Discharge Information You were seen/treated for: Blood loss anemia secondary to GI bleed Watch for these problems: In case of nausea, vomiting, abdominal pain, bloody bowel movement, weakness, shortness of breath, palpitation please go to nearest emergency room. 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 hematology consultation as outpatient to further anemia evaluation. PLEASE DO CBC ON TUESDAY. Diet Continue normal diet: No Recommended Diet: Heart Healthy Activity Full Activity/No Limits: No Activity Self Limited: Yes Acute Coronary Syndrome Inclusion Criteria At DC or during hospital stay patient has or had the following: ACS DIAGNOSIS No Discharge Core Measures Meds if any: Prescribed or Continued at Discharge Meds if any: NOT Prescribed or Continued at Discharge Congestive Heart Failure Inclusion Criteria At DC or during hospital stay patient has or had the following: CHF DIAGNOSIS No Discharge Core Measures Meds if any: Prescribed or Continued at Discharge Meds if any: NOT Prescribed or Continued at Discharge Cerebrovascular accident Inclusion Criteria At DC or during hospital stay patient has or had the following: CVA/TIA Diagnosis No Discharge Core Measures Meds if any: Prescribed or Continued at Discharge Meds if any: NOT Prescribed or Continued at Discharge Venous thromboembolism Inclusion Criteria VTE Diagnosis No VTE Type NONE VTE Confirmed by (Test) NONE Discharge Core Measures - Per Current guidelines, there needs to be overlap - treatment for the first 5 days of Warfarin therapy. - If discharged on Warfarin prior to 5 days of - overlap therapy, the patient will need to be - assessed for post discharge needs including - *Post discharge parental anticoagulation - *Warfarin and/or parental anticoagulation education - *Follow up date to check INR post discharge At least 5 days overlap therapy as Inpatient No Meds if any: Prescribed or Continued at Discharge Note: Overlap Therapy is Warfarin and Anticoagulant Meds if any: NOT Prescribed or Continued at Discharge Meds if any: NOT Prescribed or Continued at Discharge
[2018-03-14 08:33] LABS: ABSOLUTE BASOPHIL COUNT 0 /CUMM (0.0-0.2); ABSOLUTE EOSINOPHIL COUNT 0.2 /CUMM (0.0-0.7); ABSOLUTE GRANULOCYTE CT 4.2 /CUMM (1.4-6.5); ABSOLUTE LYMPH COUNT 0.6 /CUMM (1.2-3.4); ABSOLUTE MONOCYTE COUNT 0.3 /CUMM (0.10-0.60); BASOPHIL % 0.2 % (0.0-2.0); EOSINOPHIL % 3.2 % (0-5); GRANULOCYTE % 79.6 % (42.2-75.2); HEMATOCRIT 27.4 % (42-52); MEAN CORPUSCULAR HGB 27.3 PG (27.0-31.0); MEAN CORPUSCULAR HGB CONC 31.2 G/DL (33.0-37.0); MEAN CORPUSCULAR VOLUME 87.4 FL (80.0-94.0); MEAN PLATELET VOLUME 7.4 FL (7.4-10.4); PLATELET COUNT 258 /CUMM (130-400); RBC DISTRIBUTION WIDTH 20.3 % (11.5-14.5); RED BLOOD CELL CT 3.14 /CUMM (4.70-6.10); WHITE BLOOD CELL COUNT 5.3 /CUMM (4.8-10.8)
--- NOTE | 2018-03-14 10:11 | PN- Att Addend ---
Attending Addendum Attending Brief Note Had his endoscopy and colonoscopy yesterday with no active bleeding medication for the GERD was adjusted. This morning he was a little wheezy, improved after respiratory therapy. Vital signs are stable no fever with no changes on physical. Will allow the patient to be discharged on medications to follow with GI and also see a shipping & receiving lead, follow with me repeat the CBC in 48-72 hours Intake & Output 03/14 1600 03/14 0400 03/13 1600 03/13 0400 03/12 1600 03/12 0400 Intake Total 0 480 1610 1410 1500 240 Output Total 0 Balance 0 480 1610 1410 1500 240 Intake, IV 10 10 0 Intake, Oral 0 480 1600 1400 1500 240 Number 0 8 2 2 Bowel Movements Output, Urine 0 Patient 183 lb 180 lb Weight Weight Bed scale Bed scale Measurement Method Current Medications Sig/Latesha Start time Last Medication Dose Route Stop Time Status Admin Acetaminophen 650 MG Q6PRN PRN 03/10 2300 AC PO Albuterol Sulfate 3 ML EVERY 6HRS- NEED.. 03/14 0800 03/14 INH 0755 Folic Acid 1 MG DAILY 03/11 1506 03/14 PO 0942 Lidocaine 1 WON .STK-MED ONE 03/13 1430 [facility] 03/13 1431 Lidocaine 50 ML .STK-MED ONE 03/13 1430 [facility] 03/13 1431 Melatonin 3 MG AT BEDTIME PRN 03/13 2245 03/13 PO 2258 Pantoprazole Sodium 40 MG BID 03/13 2100 AC 03/14 IV 0942 Pantoprazole Sodium 40 MG DAILY 03/10 2330 MI 03/13 IV 0952 Polyethylene Glycol 1 GAL 03/12 DC 03/12 PO 2026 Pravastatin Sodium 10 MG 1700 03/11 1700 03/13 PO 1716 Prednisone 5 MG DAILY 03/11 09 AC 03/14 PO 0942 Rivaroxaban 15 MG DAILY 03/14 09 03/14 PO 0942 Laboratory Tests 03/14/18 0725: Anion Gap 10, Estimated GFR 48 L, BUN/Creatinine Ratio 18.6, CBC w Diff NO MAN DIFF REQ, RBC 3.14 L, MCV 87.4, MCH 27.3, MCHC 31.2 L, RDW 20.3 H, MPV 7.4, Gran % 79.6 H, Lymphocytes % 11.0 L, Monocytes % 6.0, Eosinophils % 3.2, Basophils % 0.2, Absolute Granulocytes 4.2, Absolute Lymphocytes 0.6 L, Absolute Monocytes 0.3, Absolute Eosinophils 0.2, Absolute Basophils 0 03/13/18 0815: CBC w Diff NO MAN DIFF REQ, RBC 3.48 L, MCV 87.5, MCH 27.6, MCHC 31.5 L, RDW 19.5 H, MPV 7.4, Gran % 78.1 H, Lymphocytes % 11.7 L, Monocytes % 6.0, Eosinophils % 4.0, Basophils % 0.2, Absolute Granulocytes 6.2, Absolute Lymphocytes 0.9 L, Absolute Monocytes 0.5, Absolute Eosinophils 0.3, Absolute Basophils 0 03/12/18 0642: Anion Gap 9, Estimated GFR 48 L, BUN/Creatinine Ratio 30.0 H, CBC w Diff NO MAN DIFF REQ, RBC 3.09 L, MCV 87.1, MCH 27.5, MCHC 31.6 L, RDW 20.4 H, MPV 7.4, Gran % 79.0 H, Lymphocytes % 11.5 L, Monocytes % 4.0, Eosinophils % 5.2 H, Basophils % 0.3, Absolute Granulocytes 4.3, Absolute Lymphocytes 0.6 L, Absolute Monocytes 0.2, Absolute Eosinophils 0.3, Absolute Basophils 0 03/11/182052: RBC 2.86 L, MCV 87.1, MCH 27.5, MCHC 31.5 L, RDW 19.1 H, MPV 7.5, Gran % 83.0 H, Lymphocytes % 9.7 L, Monocytes % 4.1, Eosinophils % 2.9, Basophils % 0.3, Absolute Granulocytes 4.8, Absolute Lymphocytes 0.6 L, Absolute Monocytes 0.2, Absolute Eosinophils 0.2, Absolute Basophils 0 Vital Signs Date Time Temp Pulse Resp B/P B/P Pulse O2 O2 Flow FiO2 Mean Ox Delivery Rate 03/14 0800 97 Room Air 03/14 0748 Room Air Room Air 03/14 0645 97.8 70 20 100/64 97 Room Air 03/14 0000 98 Room Air 03/13 2204 98.4 67 20 110/52 98 Room Air 03/13 1420 98.0 61 18 94/52 94 Room Air
--- NOTE | 2018-03-22 14:20 | Discharge Summary ---
Visit Information Visit Dates Admission Date: 03/12/18 Discharge Date: 03/14/18 Hospital Course Course Attending Physician: Antoni Rivero MD Primary Care Physician: Antoni Rivero MD Consulting Request: Consulting Specialty: Gastroenterology Consulting Physician: Deven Walker MD Reason for Consult: symptomatic anemia Hospital Course: 87-year-old white male with long-standing history of anemia been worked up at this time other comorbidities showed atrial fibrillation pacemaker COPD hyperlipidemia hypertension rheumatoid arthritis coronary artery disease and prostate cancer. Has been feeling weak and dizzy aggressively worse called my office and was advised to come to the ER for transfusion. He was admitted for symptomatic anemia some acute kidney insufficiency on chronic kidney insufficiency he received 2 units of red packed cells after that the dizziness improved he eventually had endoscopies only findings were polyps, erosive gastritis, large hiatal hernia and a [place] lesion she was followed by GI the medication was increased to twice a day. Eventually discharged to follow as an outpatient cardiology and myself. Allergies: Coded Allergies: NO KNOWN ALLERGIES (02/05/15) Significant Procedures: MEDICAL RECORDS DEPARTMENT ENDOSCOPY PROCEDURE NOTE PATIENT: FLAKITO ARCINIEGA PRESENT AGE: 87 PATIENT ACCOUNT NO: [id number] DATE OF : 32 ADMIT/SERVICE DATE: 03/12/18 ATTENDING PHYSICIAN: Antoni Rivero MD PATIENT CARE UNIT CONFIDENTIAL COPY Endoscopy Procedure Procedure Date: 03/13/18 Procedure Type: EGD (preceding colonoscopy) Yard Motor Operator: Deven Walker M.D. ASA Classification: IV Indications: GERD Iron deficiency anemia Instrument: diagnostic gastroscope Meds Received: MAC (O2 mask) Patient's Tolerance: good Complications: none Extent Reached: second part of duodenum Procedure: The patient signed informed consent for EGD and colonoscopy, and was medicated. Lidocaine pharyngeal spray was administered. Pulse oximetry, blood pressure and cardiac monitoring were performed continuously throughout the procedure. The Olympus high-definition gastroscope was inserted into the mouth and advanced to the duodenum. Retroflexion was performed within the stomach to examine the cardia. Careful examination was performed. Findings: The esophagus had normal caliber and contour. The proximal mucosa was normal. There was distal edema, and ulceration with bumpiness and exudate (between 36 and 38 cm). There was erythema at and above the GE junction (38 cm). There was no stricture or ring. There was a large hiatal hernia, with relatively small diaphragmatic hiatus. There was no erythema at the retroflexion. Retroflexed view from within the stomach demonstrated a long Kennedy's erosion. The stomach had normal distention. The cardia was as above and otherwise normal. The mucosa and folds of the stomach were normal. There was mild prepyloric edema. The pyloric channel was normal. The duodenal bulb was normal. Mucosa and folds of the duodenal sweep were normal. Impression: * Ulcerative esophagitis * Large hiatal hernia * Kennedy's erosion Recommendations: * Increase pantoprazole to twice a day dose * Given age and comorbidities, poor candidate for hiatal hernia surgery * Colonoscopy immediately followed this EGD; see report Pertinent Lab Results: 03/10/181923: Anion Gap 11, Estimated GFR 34 L, BUN/Creatinine Ratio 30.5 H, Glucose 106 H, Calcium 8.9, Total Bilirubin 0.6, AST 18, ALT 20 L, Alkaline Phosphatase 68, Troponin I 0.02, Total Protein 5.6 L, Albumin 3.3 L, Globulin 2.3, Albumin/ Globulin Ratio 1.4, CBC w Diff NO MAN DIFF REQ, RBC 2.57 L, MCV 86.6, MCH 26.6 L, MCHC 30.8 L, RDW 22.4 H, MPV 6.5 L, Gran % 80.8 H, Lymphocytes % 9.5 L, Monocytes % 6.1, Eosinophils % 3.3, Basophils % 0.3, Absolute Granulocytes 5.2, Absolute Lymphocytes 0.6 L, Absolute Monocytes 0.4, Absolute Eosinophils 0.2, Absolute Basophils 0 03/11/182052: RBC 2.86 L, MCV 87.1, MCH 27.5, MCHC 31.5 L, RDW 19.1 H, MPV 7.5, Gran % 83.0 H, Lymphocytes % 9.7 L, Monocytes % 4.1, Eosinophils % 2.9, Basophils % 0.3, Absolute Granulocytes 4.8, Absolute Lymphocytes 0.6 L, Absolute Monocytes 0.2, Absolute Eosinophils 0.2, Absolute Basophils 0 03/12/18 0642: Anion Gap 9, Estimated GFR 48 L, BUN/Creatinine Ratio 30.0 H, CBC w Diff NO MAN DIFF REQ, RBC 3.09 L, MCV 87.1, MCH 27.5, MCHC 31.6 L, RDW 20.4 H, MPV 7.4, Gran % 79.0 H, Lymphocytes % 11.5 L, Monocytes % 4.0, Eosinophils % 5.2 H, Basophils % 0.3, Absolute Granulocytes 4.3, Absolute Lymphocytes 0.6 L, Absolute Monocytes 0.2, Absolute Eosinophils 0.3, Absolute Basophils 0 Laboratory Tests 03/13/18 0815: CBC w Diff NO MAN DIFF REQ, RBC 3.48 L, MCV 87.5, MCH 27.6, MCHC 31.5 L, RDW 19.5 H, MPV 7.4, Gran % 78.1 H, Lymphocytes % 11.7 L, Monocytes % 6.0, Eosinophils % 4.0, Basophils % 0.2, Absolute Granulocytes 6.2, Absolute Lymphocytes 0.9 L, Absolute Monocytes 0.5, Absolute Eosinophils 0.3, Absolute Basophils 0 03/14/18 0725: Anion Gap 10, Estimated GFR 48 L, BUN/Creatinine Ratio 18.6, CBC w Diff NO MAN DIFF REQ, RBC 3.14 L, MCV 87.4, MCH 27.3, MCHC 31.2 L, RDW 20.3 H, MPV 7.4, Gran % 79.6 H, Lymphocytes % 11.0 L, Monocytes % 6.0, Eosinophils % 3.2, Basophils % 0.2, Absolute Granulocytes 4.2, Absolute Lymphocytes 0.6 L, Absolute Monocytes 0.3, Absolute Eosinophils 0.2, Absolute Basophils 0 03/13/18 0815: Disposition Summary Disposition Principal Diagnosis: Symptomatic anemia Lightheadedness Erosive gastritis Acute kidney insufficiency on chronic kidney insufficiency Additional Diagnosis: Atrial fibrillation Pacemaker COPD Hypertension Hyperlipidemia Rheumatoid arthritis Coronary artery disease Prostate cancer Discharge Disposition: home health services Discharge Instructions General Discharge Information Code Status: Full Code Patient's Diet: Healthy hard Patient's Activity: As tolerated Follow-Up Instructions/Appts: For a with Dr. Rivero and Dr. Deven Walker Medications at Discharge Discharge Medications: Continue taking these medications: Pravastatin Sodium (Pravastatin Sodium) 10 MG TABLET 1 Tablet ORAL DAILY Comments: Last Taken: 03/13/18 Time: 1716PM Metoprolol Tartrate (Lopressor) 50 MG TABLET 50 Milligram ORAL TWICE DAILY Qty = 60 Comments: NOT GIVEN IN HOSPITAL Multivit-Min/FA/Lycopen/Lutein (Centrum Silver Tablet) 0.4 MG-300 MCG-250 MCG TABLET 1 Tablet ORAL DAILY Comments: NOT GIVEN IN HOSPITAL Furosemide (Lasix) 40 MG TABLET 1 Tablet ORAL DAILY Comments: NOT GIVEN IN HOSPITAL Prednisone (Prednisone) 5 MG TABLET 1 Tablet ORAL DAILY Comments: Last Taken: 03/14/18 Time: 942AM Folic Acid (Folic Acid) 1 MG TABLET 1 Tablet ORAL DAILY Comments: Last Taken: 03/14/18 Time: 942AM Methotrexate (Methotrexate) 2.5 MG TABLET 2 Tablet ORAL EVERY TUESDAY Comments: NOT GIVEN IN HOSPITAL Trospium Chloride (Trospium Chloride ER) 60 MG CAP.ER.24H 1 Capsule ORAL DAILY Comments: NOT GIVEN IN HOSPITAL Oxybutynin Chloride (Oxybutynin Chloride ER) 10 MG TAB.ER.24 1 Tablet ORAL DAILY Qty = 30 Comments: NOT GIVEN IN HOSPITAL Lansoprazole (Prevacid) 15 MG TAB.RAP.DR 1 Tablet ORAL DAILY Instructions: place on top of the tongue let dissolve, then swallow Comments: NOT GIVEN IN HOSPITAL Rivaroxaban (Xarelto) 15 MG TABLET 1 Tablet ORAL DAILY Qty = 30 Comments: Last Taken: 03/14/18 Time: 942AM Losartan Potassium (Losartan Potassium) 25 MG TABLET 1 Tablet ORAL DAILY Qty = 90 Comments: NOT GIVEN IN HOSPITAL Copies To: Denise CABRAL,Deven Calloway; Antoni Rivero MD Attending MD Review Statement Documenting Attending: Antoni Rivero MD
== END 2018-03-14 14:00 | disposition home health service (06) | DRG 812 ==
LOC: ERH 18:39 → ERHI 21:12 → EDBEDREQ 22:05 → ENRESERV 22:17 → 2NB 23:43 → ENPENDDIS 03-14 13:18 → ENTRNSPT 03-14 13:51 → EDTRNSPTSTS 03-14 13:55 → 2NB 03-14 14:00 → CMPTRNSPT 03-14 14:04
PROVIDERS: Internal Medicine; Student in an Organized Health Care Education/Training Program
PROC: 30233N1 Transfusion of Nonautologous Red Blood Cells into Peripheral Vein, Percutaneous Approach (ICD-10-PCS; principal; 2018-03-11)
PROC: 0DJ08ZZ Inspection of Upper Intestinal Tract, Via Natural or Artificial Opening Endoscopic (ICD-10-PCS; 2018-03-13)
PROC: 0DBL8ZX Excision of Transverse Colon, Via Natural or Artificial Opening Endoscopic, Diagnostic (ICD-10-PCS; 2018-03-13)
DX: D62 Acute posthemorrhagic anemia (principal); N17.9 Acute kidney failure, unspecified; K22.10 Ulcer of esophagus without bleeding; I48.91 Unspecified atrial fibrillation; I13.0 Hypertensive heart and chronic kidney disease with heart failure and stage 1 through stage 4 chronic kidney disease, or unspecified chronic kidney disease; I50.30 Unspecified diastolic (congestive) heart failure; J44.9 Chronic obstructive pulmonary disease, unspecified; G47.33 Obstructive sleep apnea (adult) (pediatric); M06.9 Rheumatoid arthritis, unspecified; Z95.0 Presence of cardiac pacemaker; Z85.46 Personal history of malignant neoplasm of prostate; R42 Dizziness and giddiness; Z79.01 Long term (current) use of anticoagulants; K44.9 Diaphragmatic hernia without obstruction or gangrene; K21.0 Gastro-esophageal reflux disease with esophagitis; N18.3 Chronic kidney disease, stage 3 (moderate); D64.9 Anemia, unspecified; E78.5 Hyperlipidemia, unspecified; I25.10 Atherosclerotic heart disease of native coronary artery without angina pectoris; Z95.1 Presence of aortocoronary bypass graft; Z96.642 Presence of left artificial hip joint; Z79.52 Long term (current) use of systemic steroids; R63.4 Abnormal weight loss
CPT/HCPCS: 2NBSP; 36415; 36592; 82436; 86920; 88305; 93005; 93010; 97110-GP; 97116-GP; 97161-GP; G8978-GP; G8979-GP; J2405; J2765; J3490; J7512; P9016

== ENCOUNTER 2018-03-21 13:43 | Observation (INO) | payer OTHER ==
[~2018-03-21] VITALS: Ht 167.6 cm; Wt 75.7 kg
[~2018-03-21 13:43] MED LIST changes: +LOSARTAN POTASS25 M1 PO
--- NOTE | 2018-03-21 13:57 | ED GENERAL ADULT ---
See Addendum History of Present Illness General Chief Complaint: Dizziness Stated Complaint: DIZZINESS; LOW BLOOD PRESSURE Source: patient Exam Limitations: no limitations Vital Signs & Intake/Output Vital Signs & Intake/Output Vital Signs Date Time Temp Pulse Resp B/P B/P Pulse O2 O2 Flow FiO2 Mean Ox Delivery Rate 03/21 1917 98.1 61 20 89/53 94 Room Air Room Air 03/21 1730 97.9 67 18 94/54 95 Room Air Room Air 03/21 1452 96.0 63 20 100/55 98 Room Air 03/21 1450 98 Room Air 03/21 1346 97.1 75 18 106/69 91 Room Air Allergies Coded Allergies: NO KNOWN ALLERGIES (02/05/15) Reconcile Medications Folic Acid 1 MG TABLET 1 TAB PO DAILY VITAMIN SUPPORT (Reported) Furosemide (Lasix) 40 MG TABLET 1 TAB PO DAILY WATER RETENTION (Reported) Lansoprazole (Prevacid) 15 MG TAB.RAP.DR 1 TAB PO DAILY GI (Reported) place on top of the tongue let dissolve, then swallow Losartan Potassium 25 MG TABLET 1 TAB PO DAILY BP (Reported) Methotrexate 2.5 MG TABLET 2 TAB PO QMON ARTHRITIS (Reported) Metoprolol Tartrate (Lopressor) 50 MG TABLET 50 MG PO BID HEART (Reported) Multivit-Min/FA/Lycopen/Lutein (Centrum Silver Tablet) 0.4 MG-300 MCG-250 MCG TABLET 1 TAB PO DAILY SUPPLEMENT (Reported) Oxybutynin Chloride (Oxybutynin Chloride ER) 10 MG TAB.ER.24 1 TAB PO DAILY BLADDER (Reported) Pravastatin Sodium 10 MG TABLET 1 TAB PO DAILY CHOLESTEROL (Reported) Prednisone 5 MG TABLET 1 TAB PO DAILY ARTHRITIS (Reported) Rivaroxaban (Xarelto) 15 MG TABLET 1 TAB PO DAILY BLOOD THINNER (Reported) Trospium Chloride (Trospium Chloride ER) 60 MG CAP.ER.24H 1 CAP PO DAILY BLADDER (Reported) Triage Note: C/O LIGHTHEADEDNESS, DIZZINESS AND WEAKNESS TODAY. SENT BY [facility], FEELING WORSE AFTER PT SESSION AT HOME. ADMITTED TO [facility] LAST WEEK FOR SAME SXS, RECEIVED 2 UNITS OF BLOOD ON 03/17. DENIES ABDOMINAL PAIN OR DIARRHEA. LAST WEEK FOR SAME SXS. Triage Nurses Notes Reviewed? yes Onset: Abrupt Duration: day(s): Timing: recent history HPI: 03/21/18 6:09 PM 87-year-old male presents to the emergency department for feeling dizzy and low blood pressure. According the patient he was in his usual state of health until earlier today when he felt dizzy and lightheaded. He has a past medical history of GI bleeding. He said he had an upper and lower endoscopy and was found to have a hiatal hernia and polyps in his small intestine. He denies any rectal bleeding. He is significantly panel. He denies any chest pain or shortness of breath. He does have a history of cardiac disease and is status post pacemaker. Past History Travel History Traveled to [facility] past 21 day No Medical History Any Pertinent Medical History? see below for history Neurological: NONE EENT: NONE Cardiovascular: AFIB, CHF, hypertension, hyperlipidemia Respiratory: COPD, obstructive sleep apnea, LUNG INFECTION WITH BREATHING DIFF S /P Gastrointestinal: constipation, hiatal hernia Hepatic: NONE Renal: NONE Musculoskeletal: rheumatoid arthritis, LEFT TOTAL HIP REPLACE. FREQUENT L HIP DISLOCATIO Psychiatric: NONE Endocrine: NONE Blood Disorders: NONE Cancer(s): prostate cancer BOOKING MANAGER/Reproductive: NONE History of MRSA: No History of VRE: No History of CDIFF: No Surgical History Surgical History: CABG, LEFT HIP REPLACEMENT R KNEE REPAIR PACEMAKER HERNIA REPAIRS Psychosocial History Who do you live with Spouse Services at Home None What is your primary language Swedish Tobacco Use: Never used ETOH Use: denies use Family History Hx Contributory? No Review of Systems Review of Systems Constitutional: Denies: fever. EENTM: Reports: no symptoms. Respiratory: Denies: short of breath. Cardiovascular: Denies: chest pain. GI: Denies: abdominal pain, bloody stool. Genitourinary: Reports: no symptoms. Musculoskeletal: Reports: no symptoms. Skin: Reports: see HPI. Neurological/Psychological: Reports: no symptoms, weakness. Hematologic/Endocrine: Reports: no symptoms. Immunologic/Allergic: Reports: no symptoms. Physical Exam Physical Exam General Appearance: alert, awake, anxious, mild distress Head: atraumatic, normal appearance Eyes: Bilateral: normal appearance, PERRL, EOMI. Ears, Nose, Throat: normal pharynx, normal ENT inspection Neck: normal inspection, supple, full range of motion Respiratory: normal breath sounds, chest non-tender, no respiratory distress Cardiovascular: regular rate/rhythm Peripheral Pulses: 3+ radial (R), 3+ radial (L) Gastrointestinal: soft, non-tender Rectal: heme negative stool Back: normal range of motion Extremities: no edema Neurologic/Psych: no motor/sensory deficits, awake, alert, oriented x 3 Skin: pallor Core Measures ACS in differential dx? No CVA/TIA Diagnosis: No Sepsis Present: No Sepsis Focused Exam Completed? No Progress Differential Diagnoses I considered the following diagnoses in my evaluation of the patient: [Vertigo, symptomatic anemia, dysrhythmia, acute coronary syndrome, electrolyte derangement, sepsis] Plan of Care: Orders Procedure Date/time Status Heart Healthy Diet 03/[address] in observation 03/21 1926 Active ED Holding Orders 03/21 1926 Active Vital Signs 03/21 1926 Active Code Status 03/21 192 Active TROPONIN LEVEL 03/21 173 Complete CBC WITHOUT DIFFERENTIAL 03/21 173 Complete EKG 03/21 173 Active TROPONIN LEVEL 03/21 141 Complete COMPREHENSIVE METABOLIC PANEL 03/21 141 Complete CBC WITHOUT DIFFERENTIAL 03/21 141 Complete EKG 03/21 141 Active Laboratory Tests 03/21/18 1802: Troponin I 0.03, CBC w Diff NO MAN DIFF REQ, RBC 3.28 L, MCV 84.6, MCH 27.0, MCHC 32.0 L, RDW 20.7 H, MPV 7.7, Gran % 72.2, Lymphocytes % 18.6 L, Monocytes % 6.7, Eosinophils % 2.2, Basophils % 0.3, Absolute Granulocytes 5.4, Absolute Lymphocytes 1.4, Absolute Monocytes 0.5, Absolute Eosinophils 0.2, Absolute Basophils 0 03/21/18 1420: Anion Gap 10, Estimated GFR 44 L, BUN/Creatinine Ratio 30.7 H, Glucose 139 H, Calcium 9.4, Total Bilirubin 0.6, AST 15 L, ALT 19 L, Alkaline Phosphatase 85, Troponin I 0.02, Total Protein 6.2 L, Albumin 3.5, Globulin 2.7, Albumin/ Globulin Ratio 1.3, CBC w Diff NO MAN DIFF REQ, RBC 3.43 L, MCV 85.2, MCH 27.1, MCHC 31.9 L, RDW 20.5 H, MPV 7.8, Gran % 81.7 H, Lymphocytes % 13.3 L, Monocytes % 4.3, Eosinophils % 0.6, Basophils % 0.1, Absolute Granulocytes 7.0 H, Absolute Lymphocytes 1.1 L, Absolute Monocytes 0.4, Absolute Eosinophils 0, Absolute Basophils 0 Initial ED EKG: PACED BEATS Prior EKG: unchanged Repeat EKG: unchanged Departure Departure Disposition: STILL A PATIENT Condition: Stable Clinical Impression Primary Impression: Dizziness Referrals: Antoni Rivero MD (PCP/Family) Departure Forms: Customer Survey General Discharge Information Observation Note Spoke With: Antoni Rivero MD Physician Advisor Notified: AUGUST FERNANDEZ DO Place Patient In: Non-ED OBS Care Area Rationale for Observation: My rational for observation is as follows [the patient needs to be placed in observation for blood pressure monitoring, continued IV fluids, repeat hemoglobin and hematocrit, consider blood transfusion.]. Critical Care Note Critical Care Note Critical Care Time: non-applicable
[2018-03-21 14:30] LABS: ABSOLUTE BASOPHIL COUNT 0 /CUMM (0.0-0.2); ABSOLUTE EOSINOPHIL COUNT 0 /CUMM (0.0-0.7); ABSOLUTE LYMPH COUNT 1.1 /CUMM (1.2-3.4); ABSOLUTE MONOCYTE COUNT 0.4 /CUMM (0.10-0.60); BASOPHIL % 0.1 % (0.0-2.0); EOSINOPHIL % 0.6 % (0-5); GRANULOCYTE % 81.7 % (42.2-75.2); HEMATOCRIT 29.2 % (42-52); MEAN CORPUSCULAR HGB 27.1 PG (27.0-31.0); MEAN CORPUSCULAR HGB CONC 31.9 G/DL (33.0-37.0); MEAN CORPUSCULAR VOLUME 85.2 FL (80.0-94.0); MEAN PLATELET VOLUME 7.8 FL (7.4-10.4); PLATELET COUNT 263 /CUMM (130-400); RBC DISTRIBUTION WIDTH 20.5 % (11.5-14.5); RED BLOOD CELL CT 3.43 /CUMM (4.70-6.10); WHITE BLOOD CELL COUNT 8.6 /CUMM (4.8-10.8)
[2018-03-21 18:45] LABS: ABSOLUTE BASOPHIL COUNT 0 /CUMM (0.0-0.2); ABSOLUTE EOSINOPHIL COUNT 0.2 /CUMM (0.0-0.7); ABSOLUTE GRANULOCYTE CT 5.4 /CUMM (1.4-6.5); ABSOLUTE LYMPH COUNT 1.4 /CUMM (1.2-3.4); ABSOLUTE MONOCYTE COUNT 0.5 /CUMM (0.10-0.60); BASOPHIL % 0.3 % (0.0-2.0); EOSINOPHIL % 2.2 % (0-5); GRANULOCYTE % 72.2 % (42.2-75.2); HEMATOCRIT 27.7 % (42-52); MEAN CORPUSCULAR VOLUME 84.6 FL (80.0-94.0); MEAN PLATELET VOLUME 7.7 FL (7.4-10.4); PLATELET COUNT 247 /CUMM (130-400); RBC DISTRIBUTION WIDTH 20.7 % (11.5-14.5); RED BLOOD CELL CT 3.28 /CUMM (4.70-6.10); WHITE BLOOD CELL COUNT 7.5 /CUMM (4.8-10.8)
--- NOTE | 2018-03-21 22:01 | History & Physical ---
Jeffrey Ivan MD,[facility] 03/21/18 2157: General Information and HPI MD Statement: I have seen and personally examined AUSTEN ARCINIEGA and documented this H&P. The patient is a 87 year old M who presented with a patient stated chief complaint of [LIGHTHEADEDNESS]. Source of Information: patient, old records Exam Limitations: no limitations History of Present Illness: Patient is 86 year old M with PMH of COPD, IRMA (on 4 L O2 at night), HTN, HLIP, CKD, chronic anemia, GERD, RA, prostate carcinoma, and CAD (s/p remote PR s/p stenting of the culprit vessel and subsequent CABG 4), chronic Afib s/p pacemaker on xeralto presented to the ED with CC of lightheadedness and unsteady gait. Patient noted that this morning he had lightheadedness, had unsteady gait he measured his blood pressure which was low and he came to ED. He noted that he was still able to walk to the car. Patient was discharged 1 week ago from [place] after evluation of haris and Anemia after having upper and lower GI endoscopy. A shunt was administered oral iron but discontinued 3 days ago with concerns of change in stool color which can obscure GI bleeding. He saw Dr. Rivero yesterday and according to patient his blood pressure was fine he also reported normal by mouth intake, no diarrhea, no change in stool color ( normal brown with guaiac-negative). He denied any chest pain, shortness of breathing, change in urine color or bleeding from any other course. He has a visiting nurse, was supposed to see Dr. Long on April 25. Allergies/Medications Allergies: Coded Allergies: NO KNOWN ALLERGIES (02/05/15) Home Med list Folic Acid 1 MG TABLET 1 TAB PO DAILY VITAMIN SUPPORT (Reported) Furosemide (Lasix) 40 MG TABLET 1 TAB PO DAILY WATER RETENTION (Reported) Lansoprazole (Prevacid) 15 MG TAB.RAP. 1 TAB PO DAILY GI (Reported) place on top of the tongue let dissolve, then swallow Losartan Potassium 25 MG TABLET 1 TAB PO DAILY BP (Reported) Methotrexate 2.5 MG TABLET 2 TAB PO QMON ARTHRITIS (Reported) Metoprolol Tartrate (Lopressor) 50 MG TABLET 50 MG PO BID HEART (Reported) Metoprolol Tartrate 25 MG TABLET 1 TAB PO BID HTN Multivit-Min/FA/Lycopen/Lutein (Centrum Silver Tablet) 0.4 MG-300 MCG-250 MCG TABLET 1 TAB PO DAILY SUPPLEMENT (Reported) Oxybutynin Chloride (Oxybutynin Chloride ER) 10 MG TAB.ER.24 1 TAB PO DAILY BLADDER (Reported) Pravastatin Sodium 10 MG TABLET 1 TAB PO DAILY CHOLESTEROL (Reported) Prednisone 5 MG TABLET 1 TAB PO DAILY ARTHRITIS (Reported) Rivaroxaban (Xarelto) 15 MG TABLET 1 TAB PO DAILY BLOOD THINNER (Reported) Trospium Chloride (Trospium Chloride ER) 60 MG CAP.ER.24H 1 CAP PO DAILY BLADDER (Reported) Past History Travel History Traveled to [facility] past 21 day No Medical History Neurological: NONE EENT: NONE Cardiovascular: AFIB, CHF, hypertension, hyperlipidemia Respiratory: COPD, obstructive sleep apnea, LUNG INFECTION WITH BREATHING DIFF S /P Gastrointestinal: constipation, hiatal hernia Hepatic: NONE Renal: NONE Musculoskeletal: rheumatoid arthritis, LEFT TOTAL HIP REPLACE. FREQUENT L HIP DISLOCATIO Psychiatric: NONE Endocrine: NONE Blood Disorders: NONE Cancer(s): prostate cancer RV REPAIRER/Reproductive: NONE History of MRSA: No History of VRE: No History of CDIFF: No Surgical History Surgical History: CABG, LEFT HIP REPLACEMENT R KNEE REPAIR PACEMAKER HERNIA REPAIRS Past Family/Social History Psychosocial History Who Do You Live With? spouse Services at Home: None Primary Language: Thai ETOH Use: denies use Living Will? unknown Functional Ability ADLs Independent: dressing, eating, toileting, bathing. Ambulation: independent IADLs Independent: shopping, housework, finances, food prep, telephone, transportation , medication admin. Review of Systems Review of Systems Constitutional: Reports: see HPI. Exam & Diagnostic Data Last 24 Hrs of Vital Signs/I&O Vital Signs Date Time Temp Pulse Resp B/P B/P Pulse O2 O2 Flow FiO2 Mean Ox Delivery Rate 03/21 2255 98.1 84 18 122/68 97 Room Air 03/21 2210 98.0 73 18 116/64 98 Room Air 03/21 2106 98.2 68 16 126/68 98 Room Air Room Air 03/21 1917 98.1 61 20 89/53 94 Room Air Room Air 03/21 1730 97.9 67 18 94/54 95 Room Air Room Air 03/21 1452 96.0 63 20 100/55 98 Room Air 03/21 1450 98 Room Air 03/21 1346 97.1 75 18 106/69 91 Room Air Intake & Output 03/22 0800 03/22 0000 03/21 1600 Intake Total Output Total Balance Patient 167 lb 167 lb Weight Weight Reported by Patient Measurement Method Physical Exam General Appearance Alert, Oriented X3, Cooperative, No Acute Distress Skin No Significant Lesion, relatively pale Skin Temp/Moisture Exam: Warm/Dry Sepsis Skin Exam (color): Normal for Ethnicity HEENT Atraumatic, EOMI, mucous membranes relatively dry Cardiovascular Normal S1, Normal S2 Lungs Clear to Auscultation, Normal Air Movement Abdomen Soft, No Tenderness Extremities trace edema Last 24 Hrs of Labs/Avinash: Laboratory Tests 03/21/18 1802: Troponin I 0.03, CBC w Diff NO MAN DIFF REQ, RBC 3.28 L, MCV 84.6, MCH 27.0, MCHC 32.0 L, RDW 20.7 H, MPV 7.7, Gran % 72.2, Lymphocytes % 18.6 L, Monocytes % 6.7, Eosinophils % 2.2, Basophils % 0.3, Absolute Granulocytes 5.4, Absolute Lymphocytes 1.4, Absolute Monocytes 0.5, Absolute Eosinophils 0.2, Absolute Basophils 0 03/21/18 1420: Anion Gap 10, Estimated GFR 44 L, BUN/Creatinine Ratio 30.7 H, Glucose 139 H, Calcium 9.4, Total Bilirubin 0.6, AST 15 L, ALT 19 L, Alkaline Phosphatase 85, Troponin I 0.02, Total Protein 6.2 L, Albumin 3.5, Globulin 2.7, Albumin/ Globulin Ratio 1.3, CBC w Diff NO MAN DIFF REQ, RBC 3.43 L, MCV 85.2, MCH 27.1, MCHC 31.9 L, RDW 20.5 H, MPV 7.8, Gran % 81.7 H, Lymphocytes % 13.3 L, Monocytes % 4.3, Eosinophils % 0.6, Basophils % 0.1, Absolute Granulocytes 7.0 H, Absolute Lymphocytes 1.1 L, Absolute Monocytes 0.4, Absolute Eosinophils 0, Absolute Basophils 0 Assessment/Plan Assessment: Patient is 86 year old M presented with lightheadedness and unsteady gait. Discharge 1 week ago, received PRBC in last admission, had upper and lower GI endoscopy PMH of COPD, IRMA (on 4 L O2 at night), HTN, HLIP, CKD, chronic anemia, GERD, RA, prostate carcinoma, and CAD (s/p remote PR s/p stenting of the culprit vessel and subsequent CABG 4), chronic Afib s/p pacemaker on warfarin xeralto, rheumatoid arthritis, hiatal hernia VS, Ph Ex at admission: BP 106/69, DC 75, RR 18, no fever BP improved to 126/68 with fluids Labs at admission: Hgb 9.3, PLT 263, BUN 46, CR 1.5, BN creatinine ratio 30.7 Imagings at admission: No imaging this admission Patient was admitted to GM floor for management of following conditions: Low blood pressure, lightheadedness Most likely setting of taking blood pressure medication, low by mouth intake Chronic medical conditions A. fib, chronic anemia -Admit patient to general medicine floor -Check blood pressure, vital signs -Continue IV fluids -Continue home medication - hold blood pressure medication, hold xeralto - cardio consult in AM, Dr Ethan BEY heart healthy diet DVT ppx: alps only for now As Ranked By This Provider Problem List: 1. Anemia 2. Low blood pressure Core Measures/Misc (07/24) Acute Coronary Syndrome ACS Diagnosis: No Congestive Heart Failure Congestive Heart Failure Diagnosis No Cerebrovascular Accident CVA/TIA Diagnosis: No VTE (View Protocol) VTE Risk Factors Age>40 No Mechanical VTE Prophylaxis d/t N/A MechProphylax Ordered No VTE Pharm Prophylaxis d/t Medical Contraindication (anemia) Sepsis (View protocol) Sepsis Present: No Deacon CABRAL,[facility] 03/22/18 0450: Resident Review Statement Resident Statement: examined this patient, discussed with internal communications intern, agreed with internal communications intern, discussed with family, reviewed EMR data (avail), discussed with nursing Other Findings: Austen is 87-year-old male with past medical history significant for A. fib s/p pacemaker (in 2016 for bradycardia) on Xarelto, Anemia, COPD, hypertension, hyperlipidemia, rheumatoid arthritis, CAD s/p CABG 1998, prostate Cancer 1998, big hiatal hernia, patient was discharged a week ago March 14 after was treated for symptomatic anemia status post 2 units blood transfusion, upper endoscopy and colonoscopy that shows polyps/erosive esophagitis/[place] lesion and patient was discharged after clearance from gastroenterology and started back on home medication blood pressure medication and Xarelto. Patient reported recurrence of his weakness, fatigability and unsteady gait today, in fact had follow up with Dr. Rivero PCP yesterday without any issues. Patient denied any hemoptysis, hematemesis, hematuria, melena. Denied any poor oral intake, diarrhea, nausea or vomiting. Patient reported stopped taking his iron for the last 3 days because of black stool, stool color went back to normal brown color after iron discontinuation. Patient denied any chest pain, shortness of breath, palpitation. On admission temperature 97.1, pulse 75, blood pressure 106/69 improved after 1 L fluid to 126/86, saturating 91% on room air Labs significant for H&H 9.3/29.2 which is around his baseline upon recent discharge. White blood cell 8.6, platelet 263. BUN/creatinine 46/1.5 creatinine around his baseline. Tropes 0.02/0.03 with no EKG changes Problem list #Dizziness/lightheadedness due to orthostatic hypotension versus medication induced versus anemia #History of atrial fibrillation on Xarelto #Recent endoscopy and colonoscopy positive for polyps/erosive esophagitis/ [place] lesion Plan Observe on general medical floor Vitals every shift Orthostatic measurement Repeat CBCs, BEP in a.m. Hemoccult all stools Repeat tropes and EKG total of 3 sets Hold blood pressure medication, Lasix and Xarelto Cardiology consultation Dr. Long in a.m. Confirm medication in a.m. We continue with folic acid, PPI and pravastatin according to reclaim history however not sure if patient still on prednisone IV fluid 1 more bag maintenance/total of 3 bags normal saline Diet heart healthy PT evaluation and treat DVT prophylaxis Alps/nonpharmacological due to concerns of GI bleeds Code full
[2018-03-21 22:55] VITALS: BP 122/68
[2018-03-22 06:19] VITALS: BP 104/66
--- NOTE | 2018-03-22 08:39 | PN-Observation ---
Observation Note Observation Note _ I have personally examined FLAKITO ARCINIEGA. him disposition is uncertain at this time. Before a determination can be made, he requires continued observation for the following reasons [dizziness]. Assessment/Plan Medical Assessment: 86 year old M PMH of COPD, IRMA (on 4 L O2 at night), HTN, HLIP, CKD, chronic anemia, GERD, RA, prostate carcinoma, and CAD (s/p remote [place] s/p stenting of the culprit vessel and subsequent CABG 4), chronic Afib s/p pacemaker on xeralto, rheumatoid arthritis, hiatal hernia presented with lightheadedness and unsteady gait DischargeD 1 week ago, received PRBC in last admission, had upper and lower GI endoscopy. Assessment and plan 1. Dizziness/hypotension/unstable gait. Patient denies any further episodes of dizziness. Patient was able to walk with a physical therapist today. Patient hemoglobin dropped. This can be secondary due to dilutional. Patient got 3 L of IV fluids last night due to [id number]. Pt blood pressure improved. We will follow up with cardiology regarding adjusting his blood pressure medication. Spoke to Dr. Long over the phone who will follow him today. Code-full code Diet-heart healthy diet DVT prophylaxis-alps Problem List: 1. Dizziness 2. Low blood pressure Subjective Follow-up For: Dizziness Subjective: Patient seen and examined at bedside. no overnight events. Denies further episodes of dizziness, weakness. Review of Systems Constitutional: Reports: no symptoms, see HPI. Objective Last 24 Hrs of Vital Signs/I&O Vital Signs Date Time Temp Pulse Resp B/P B/P Pulse O2 O2 Flow FiO2 Mean Ox Delivery Rate 03/22 1513 98.1 64 20 110/58 96 Room Air 03/22 1218 Room Air Room Air 03/22 0619 98.4 65 18 104/66 96 Room Air 03/21 2255 98.1 84 18 122/68 97 Room Air 03/21 2210 98.0 73 18 116/64 98 Room Air 03/21 2106 98.2 68 16 126/68 98 Room Air Room Air 03/21 1917 98.1 61 20 89/53 94 Room Air Room Air 03/21 1730 97.9 67 18 94/54 95 Room Air Room Air Intake & Output 03/22 1600 03/22 0800 03/22 0000 Intake Total 400 800 Output Total 300 275 Balance 100 525 Intake, IV 800 Intake, Oral 400 Output, Urine 300 275 Patient 167 lb Weight Physical Exam General Appearance: Alert, Oriented X3, Cooperative, No Acute Distress Cardiovascular: Regular Rate, Normal S1, Normal S2, No Murmurs Lungs: Clear to Auscultation Abdomen: Soft, No Tenderness, No Hepatospenomegaly Neurological: Normal Speech, Strength at 5/5 X4 Ext, Normal Tone, Sensation Intact Extremities: No Cyanosis, No Edema, Normal Pulses Current Medications: Current Medications Sig/Latesha Start time Last Medication Dose Route Stop Time Status Admin Alprazolam 0.5 MG .STK-MED ONE 03/21 2303 DC PO 03/21 2304 Folic Acid 1 MG DAILY 03/22 0900 AC 03/22 PO 0856 Omeprazole 40 MG DAILY AC 03/22 0700 DC PO Omeprazole 40 MG DAILY AC 03/21 2330 AC 03/22 PO 0623 Patient Medication 1 ED ONE ONE 03/22 1115 DC Teaching ED 03/22 1116 Pravastatin Sodium 10 MG 1700 03/22 1700 AC PO Sodium Chloride 1,000 ML .Q10H 03/21 2215 DC 05 IV 03/22 0814 2321 Sodium Chloride 1,000 ML BOLUS ONE 03/21 2100 DC IV 03/21 2159 Sodium Chloride 1,000 ML BOLUS ONE 03/21 1945 DC 03/21 IV 03/21 2044 1999 Last 24 Hrs of Labs/Mics: Laboratory Tests 03/22/18 0600: Urine Color YEL, Urine Clarity HAZY H, Urine pH 6.5, Ur Specific [place] 1.015, Urine Protein NEG, Urine Ketones NEG, Urine Nitrite POS H, Urine Bilirubin NEG, Urine Urobilinogen 0.2, Ur Leukocyte Esterase SMALL H, Ur Microscopic SEDIMENT EXAMINED, Urine WBC 50-75 H, Urine Bacteria MANY H, Urine Mucus RARE, Urine Hemoglobin NEG, Urine Glucose NEG 03/22/18 0555: Anion Gap 12, Estimated GFR 44 L, BUN/Creatinine Ratio 30.7 H, Troponin I 0.03 , CBC w Diff NO MAN DIFF REQ, RBC 2.76 L, MCV 85.0, MCH 27.1, MCHC 31.9 L, RDW 20.5 H, MPV 7.7, Gran % 63.3, Lymphocytes % 23.4, Monocytes % 6.4, Eosinophils % 6.5 H, Basophils % 0.4, Absolute Granulocytes 3.4, Absolute Lymphocytes 1.2, Absolute Monocytes 0.3, Absolute Eosinophils 0.3, Absolute Basophils 0 03/22/18 0200: Troponin I Cancelled 03/21/18 1802: Troponin I 0.03, CBC w Diff NO MAN DIFF REQ, RBC 3.28 L, MCV 84.6, MCH 27.0, MCHC 32.0 L, RDW 20.7 H, MPV 7.7, Gran % 72.2, Lymphocytes % 18.6 L, Monocytes % 6.7, Eosinophils % 2.2, Basophils % 0.3, Absolute Granulocytes 5.4, Absolute Lymphocytes 1.4, Absolute Monocytes 0.5, Absolute Eosinophils 0.2, Absolute Basophils 0
[2018-03-22 09:16] LABS: ABSOLUTE BASOPHIL COUNT 0 /CUMM (0.0-0.2); ABSOLUTE EOSINOPHIL COUNT 0.3 /CUMM (0.0-0.7); ABSOLUTE GRANULOCYTE CT 3.4 /CUMM (1.4-6.5); ABSOLUTE LYMPH COUNT 1.2 /CUMM (1.2-3.4); ABSOLUTE MONOCYTE COUNT 0.3 /CUMM (0.10-0.60); BASOPHIL % 0.4 % (0.0-2.0); EOSINOPHIL % 6.5 % (0-5); GRANULOCYTE % 63.3 % (42.2-75.2); HEMATOCRIT 23.5 % (42-52); MEAN CORPUSCULAR HGB 27.1 PG (27.0-31.0); MEAN CORPUSCULAR HGB CONC 31.9 G/DL (33.0-37.0); MEAN PLATELET VOLUME 7.7 FL (7.4-10.4); PLATELET COUNT 178 /CUMM (130-400); RBC DISTRIBUTION WIDTH 20.5 % (11.5-14.5); RED BLOOD CELL CT 2.76 /CUMM (4.70-6.10); WHITE BLOOD CELL COUNT 5.3 /CUMM (4.8-10.8)
--- NOTE | 2018-03-22 10:01 | PN- Att Addend ---
Attending Addendum Attending Brief Note 87-year-old white male being worked up for an anemia. Latest H&H was fairly stable. Office recently in stable condition on the day he came to the emergency room feeling very dizzy a patient of blood pressure medications. In the ER his blood pressure wasn't low side, his H&H did not drop and he was given IV fluids with improvement of the symptoms patient was kept on observation will get cardiology input my will need to probably adjust blood pressure medications Current Medications Sig/Latesha Start time Last Medication Dose Route Stop Time Status Admin Alprazolam 0.5 MG .STK-MED ONE 03/21 2303 DC PO 03/21 2304 Folic Acid 1 MG DAILY 03/22 0900 AC 03/22 PO 0856 Omeprazole 40 MG DAILY AC 03/22 0700 DC PO Omeprazole 40 MG DAILY AC 03/21 2330 AC 03/22 PO 0623 Pravastatin Sodium 10 MG 1700 03/22 1700 AC PO Sodium Chloride 1,000 ML .Q10H 03/21 2215 DC 03/21 IV 03/22 0814 2321 Sodium Chloride 1,000 ML BOLUS ONE 03/21 2100 DC IV 03/21 2159 Sodium Chloride 1,000 ML BOLUS ONE 03/21 1945 DC 03/21 IV 03/21 2041999 Laboratory Tests 03/22/18 0600: Urine Color YEL, Urine Clarity HAZY H, Urine pH 6.5, Ur Specific [place] 1.015, Urine Protein NEG, Urine Ketones NEG, Urine Nitrite POS H, Urine Bilirubin NEG, Urine Urobilinogen 0.2, Ur Leukocyte Esterase SMALL H, Ur Microscopic SEDIMENT EXAMINED, Urine WBC 50-75 H, Urine Bacteria MANY H, Urine Mucus RARE, Urine Hemoglobin NEG, Urine Glucose NEG 03/22/18 0555: Anion Gap 12, Estimated GFR 44 L, BUN/Creatinine Ratio 30.7 H, Troponin I 0.03 , CBC w Diff NO MAN DIFF REQ, RBC 2.76 L, MCV 85.0, MCH 27.1, MCHC 31.9 L, RDW 20.5 H, MPV 7.7, Gran % 63.3, Lymphocytes % 23.4, Monocytes % 6.4, Eosinophils % 6.5 H, Basophils % 0.4, Absolute Granulocytes 3.4, Absolute Lymphocytes 1.2, Absolute Monocytes 0.3, Absolute Eosinophils 0.3, Absolute Basophils 0 03/22/18 0200: Troponin I Cancelled 03/21/18 1802: Troponin I 0.03, CBC w Diff NO MAN DIFF REQ, RBC 3.28 L, MCV 84.6, MCH 27.0, MCHC 32.0 L, RDW 20.7 H, MPV 7.7, Gran % 72.2, Lymphocytes % 18.6 L, Monocytes % 6.7, Eosinophils % 2.2, Basophils % 0.3, Absolute Granulocytes 5.4, Absolute Lymphocytes 1.4, Absolute Monocytes 0.5, Absolute Eosinophils 0.2, Absolute Basophils 0 03/21/18 1420: Anion Gap 10, Estimated GFR 44 L, BUN/Creatinine Ratio 30.7 H, Glucose 139 H, Calcium 9.4, Total Bilirubin 0.6, AST 15 L, ALT 19 L, Alkaline Phosphatase 85, Troponin I 0.02, Total Protein 6.2 L, Albumin 3.5, Globulin 2.7, Albumin/ Globulin Ratio 1.3, CBC w Diff NO MAN DIFF REQ, RBC 3.43 L, MCV 85.2, MCH 27.1, MCHC 31.9 L, RDW 20.5 H, MPV 7.8, Gran % 81.7 H, Lymphocytes % 13.3 L, Monocytes % 4.3, Eosinophils % 0.6, Basophils % 0.1, Absolute Granulocytes 7.0 H, Absolute Lymphocytes 1.1 L, Absolute Monocytes 0.4, Absolute Eosinophils 0, Absolute Basophils 0 Vital Signs Date Time Temp Pulse Resp B/P B/P Pulse O2 O2 Flow FiO2 Mean Ox Delivery Rate 03/22 0619 98.4 65 18 104/66 96 Room Air 03/21 2255 98.1 84 18 122/68 97 Room Air 03/21 2210 98.0 73 18 116/64 98 Room Air 03/21 2106 98.2 68 16 126/68 98 Room Air Room Air 03/21 1917 98.1 61 20 89/53 94 Room Air Room Air 03/21 1730 97.9 67 18 94/54 95 Room Air Room Air 03/21 1452 96.0 63 20 100/55 98 Room Air 03/21 1450 98 Room Air 03/21 1346 97.1 75 18 106/69 91 Room Air
--- NOTE | 2018-03-22 10:49 | Patient Discharge Instructions ---
Discharge Instructions General Discharge Information You were seen/treated for: Unsteady gait, dizziness Watch for these problems: In case of dizziness, nausea, vomiting, chest pain, unstable gait please go to the nearest emergency room Special Instructions: Please follow-up with your primary care provider, cooker cleaner, discharge rn within 1-2 weeks of discharge Please check your blood pressure and maintain a blood pressure log at home. If your systolic blood pressure is less than 90 and diastolic blood pressure less than 50 please call your primary care physician. Diet Continue normal diet: No Recommended Diet: Heart Healthy Activity Full Activity/No Limits: No Activity Self Limited: Yes Acute Coronary Syndrome Inclusion Criteria At DC or during hospital stay patient has or had the following: ACS DIAGNOSIS No Discharge Core Measures Meds if any: Prescribed or Continued at Discharge Meds if any: NOT Prescribed or Continued at Discharge Congestive Heart Failure Inclusion Criteria At DC or during hospital stay patient has or had the following: CHF DIAGNOSIS No Discharge Core Measures Meds if any: Prescribed or Continued at Discharge Meds if any: NOT Prescribed or Continued at Discharge Cerebrovascular accident Inclusion Criteria At DC or during hospital stay patient has or had the following: CVA/TIA Diagnosis No Discharge Core Measures Meds if any: Prescribed or Continued at Discharge Meds if any: NOT Prescribed or Continued at Discharge Venous thromboembolism Inclusion Criteria VTE Diagnosis No VTE Type NONE VTE Confirmed by (Test) NONE Discharge Core Measures - Per Current guidelines, there needs to be overlap - treatment for the first 5 days of Warfarin therapy. - If discharged on Warfarin prior to 5 days of - overlap therapy, the patient will need to be - assessed for post discharge needs including - *Post discharge parental anticoagulation - *Warfarin and/or parental anticoagulation education - *Follow up date to check INR post discharge At least 5 days overlap therapy as Inpatient No Meds if any: Prescribed or Continued at Discharge Note: Overlap Therapy is Warfarin and Anticoagulant Meds if any: NOT Prescribed or Continued at Discharge
[2018-03-22 15:13] VITALS: BP 110/58
[2018-03-22 18:58] LABS: ABSOLUTE BASOPHIL COUNT 0 /CUMM (0.0-0.2); ABSOLUTE EOSINOPHIL COUNT 0.4 /CUMM (0.0-0.7); ABSOLUTE GRANULOCYTE CT 4.4 /CUMM (1.4-6.5); ABSOLUTE LYMPH COUNT 1.3 /CUMM (1.2-3.4); ABSOLUTE MONOCYTE COUNT 0.5 /CUMM (0.10-0.60); BASOPHIL % 0.2 % (0.0-2.0); EOSINOPHIL % 6.3 % (0-5); GRANULOCYTE % 66.7 % (42.2-75.2); HEMATOCRIT 25.4 % (42-52); MEAN CORPUSCULAR HGB 26.6 PG (27.0-31.0); MEAN CORPUSCULAR HGB CONC 30.8 G/DL (33.0-37.0); MEAN CORPUSCULAR VOLUME 86.2 FL (80.0-94.0); MEAN PLATELET VOLUME 7.6 FL (7.4-10.4); PLATELET COUNT 198 /CUMM (130-400); RBC DISTRIBUTION WIDTH 21.1 % (11.5-14.5); RED BLOOD CELL CT 2.95 /CUMM (4.70-6.10); WHITE BLOOD CELL COUNT 6.6 /CUMM (4.8-10.8)
--- NOTE | 2018-03-22 19:13 | Cons- Cardiology ---
General Information and HPI Consulting Request Date of Consult: 03/22/18 Requested By: Antoni Rivero MD Reason for Consult: Orthostatic hypotension. Source of Information: patient, old records Exam Limitations: no limitations History of Present Illness: Mr. 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 He denies any chest discomfort, palpitations, but admits to shortness of breath on exertion. He was undergoing physical therapy when he felt the above symptoms and was instructed to sit by the physical therapist. His blood pressure was checked with him seated and then again when he stood and he was found to be orthostatic. He was recently hospitalized (03/10-03/14/2018) for similar symptoms and was found to be anemic and received 2 units of packed red blood cells. Evaluation of his iron deficiency anemia included an EGD that was performed on 03/13/2018 and revealed ulcerative esophagitis, a large hiatal hernia, and a Kennedy's erosion. A colonoscopy was also performed on 03/13/2018 and revealed diverticular disease and colonic polyps for which he underwent polypectomy. He also went transfusion of 1 unit of packed red blood cells 02/22/2018. Allergies/Medications Allergies: Coded Allergies: NO KNOWN ALLERGIES (02/05/15) Home Med List: Folic Acid 1 MG TABLET 1 TAB PO DAILY VITAMIN SUPPORT (Reported) Furosemide (Lasix) 40 MG TABLET 1 TAB PO DAILY WATER RETENTION (Reported) Lansoprazole (Prevacid) 15 MG TAB.RAP.DR 1 TAB PO DAILY GI (Reported) place on top of the tongue let dissolve, then swallow Losartan Potassium 25 MG TABLET 1 TAB PO DAILY BP (Reported) Methotrexate 2.5 MG TABLET 2 TAB PO QMON ARTHRITIS (Reported) Metoprolol Tartrate (Lopressor) 50 MG TABLET 50 MG PO BID HEART (Reported) Multivit-Min/FA/Lycopen/Lutein (Centrum Silver Tablet) 0.4 MG-300 MCG-250 MCG TABLET 1 TAB PO DAILY SUPPLEMENT (Reported) Oxybutynin Chloride (Oxybutynin Chloride ER) 10 MG TAB.ER.24 1 TAB PO DAILY BLADDER (Reported) Pravastatin Sodium 10 MG TABLET 1 TAB PO DAILY CHOLESTEROL (Reported) Prednisone 5 MG TABLET 1 TAB PO DAILY ARTHRITIS (Reported) Rivaroxaban (Xarelto) 15 MG TABLET 1 TAB PO DAILY BLOOD THINNER (Reported) Trospium Chloride (Trospium Chloride ER) 60 MG CAP.ER.24H 1 CAP PO DAILY BLADDER (Reported) Review of Systems Review of Systems: A 14 point system review was obtained was noncontributory, other than as above. Past History Travel History Traveled to [place] past 21 day No Medical History Blood Transfusion Hx: Yes Neurological: NONE EENT: NONE Cardiovascular: AFIB, CHF, hypertension, hyperlipidemia Respiratory: COPD, obstructive sleep apnea, LUNG INFECTION WITH BREATHING DIFF S /P Gastrointestinal: constipation, hiatal hernia Hepatic: NONE Renal: NONE Musculoskeletal: rheumatoid arthritis, LEFT TOTAL HIP REPLACE. FREQUENT L HIP DISLOCATIO Psychiatric: NONE Endocrine: NONE Blood Disorders: NONE Cancer(s): prostate cancer SENIOR BENEFITS ANALYST/Reproductive: NONE Surgical History Surgical History: CABG, LEFT HIP REPLACEMENT R KNEE REPAIR PACEMAKER HERNIA REPAIRS Psychosocial History Who Do You Live With? spouse Services at Home: None Primary Language: Slovak Smoking Status: Never Smoked ETOH Use: denies use Living Will? unknown Functional Ability ADLs Independent: dressing, eating, toileting, bathing. Ambulation: independent IADLs Independent: shopping, housework, finances, food prep, telephone, transportation , medication admin. Exam & Diagnostic Data Vital Signs and I&O Vital Signs Date Time Temp Pulse Resp B/P B/P Pulse O2 O2 Flow FiO2 Mean Ox Delivery Rate 03/22 1513 98.1 64 20 110/58 96 Room Air 03/22 1218 Room Air Room Air 03/22 0619 98.4 65 18 104/66 96 Room Air 03/21 2255 98.1 84 18 122/68 97 Room Air 03/21 2210 98.0 73 18 116/64 98 Room Air 03/21 2106 98.2 68 16 126/68 98 Room Air Room Air 03/21 1917 98.1 61 20 89/53 94 Room Air Room Air Intake & Output 03/22 1600 03/22 0800 03/22 0000 05/15 1600 03/21 0800 03/21 0000 Intake Total 400 800 Output Total 300 275 Balance 100 525 Intake, IV 800 Intake, Oral 400 Output, Urine 300 275 Patient 167 lb 167 lb Weight Weight Reported by Patient Measurement Method Physical Exam: Well-developed, overweight elderly male who appears pale in no acute distress. Vital signs: See above. HEENT: Normocephalic, atraumatic, EOMI, slightly dry mucous membranes. Neck: No JVD, no bruits. Lungs: Clear to auscultation. Heart: S1, S2 with grade 1/6 systolic murmur. No gallop or rub. PMI fifth ICS MCL. Abdomen: Soft, nontender, positive bowel sounds. Extremities: No edema. Labs/Avinash Results: Laboratory Tests 03/22 03/22 1800 0600 Hematology CBC w Diff NO MAN DIFF REQ WBC (4.8 - 10.8 /CUMM) 6.6 RBC (4.70 - 6.10 /CUMM) 2.95 L Hgb (14.0 - 18.0 G/DL) 7.8 L Hct (42 - 52 %) 25.4 L MCV (80.0 - 94.0 FL) 86.2 MCH (27.0 - 31.0 PG) 26.6 L MCHC (33.0 - 37.0 G/DL) 30.8 L RDW (11.5 - 14.5 %) 21.1 H Plt Count (130 - 400 /CUMM) 198 MPV (7.4 - 10.4 FL) 7.6 Gran % (42.2 - 75.2 %) 66.7 Lymphocytes % (20.5 - 51.1 %) 19.8 L Monocytes % (1.7 - 9.3 %) 7.0 Eosinophils % (0 - 5 %) 6.3 H Basophils % (0.0 - 2.0 %) 0.2 Absolute Granulocytes (1.4 - 6.5 /CUMM) 4.4 Absolute Lymphocytes (1.2 - 3.4 /CUMM) 1.3 Absolute Monocytes (0.10 - 0.60 /CUMM) 0.5 Absolute Eosinophils (0.0 - 0.7 /CUMM) 0.4 Absolute Basophils (0.0 - 0.2 /CUMM) 0 Urines Urine Color (YEL,AMB,STR) YEL Urine Clarity (CLEAR) HAZY H Urine pH (5.0 - 8.0) 6.5 Ur Specific [place] (1.001 - 1.035) 1.015 Urine Protein (NEG,<30 MG/DL) NEG Urine Ketones (NEG) NEG Urine Nitrite (NEG) POS H Urine Bilirubin (NEG) NEG Urine Urobilinogen (0.1 - 1.0 EU/dl) 0.2 Ur Leukocyte Esterase (NEG) SMALL H Ur Microscopic SEDIMENT EXAMINED Urine WBC (0 - 2 /HPF) 50-75 H Urine Bacteria (NEG/NONE) MANY H Urine Mucus (FEW,NONE) RARE Urine Hemoglobin (NEG) NEG Urine Glucose (N MG/DL) NEG 03/22 03/22 0555 0200 Chemistry Sodium (137 - 145 mmol/L) 143 Potassium (3.5 - 5.1 mmol/L) 4.0 Chloride (98 - 107 mmol/L) 107 Carbon Dioxide (22 - 30 mmol/L) 24 Anion Gap (5 - 16) 12 BUN (9 - 20 mg/dL) 46 H Creatinine (0.7 - 1.2 mg/dL) 1.5 H Estimated GFR (>60 ml/min) 44 L BUN/Creatinine Ratio (7 - 25 %) 30.7 H Troponin I (<0.11 ng/ml) 0.03 Cancelled Hematology CBC w Diff NO MAN DIFF REQ WBC (4.8 - 10.8 /CUMM) 5.3 RBC (4.70 - 6.10 /CUMM) 2.76 L Hgb (14.0 - 18.0 G/DL) 7.5 L Hct (42 - 52 %) 23.5 L MCV (80.0 - 94.0 FL) 85.0 MCH (27.0 - 31.0 PG) 27.1 MCHC (33.0 - 37.0 G/DL) 31.9 L RDW (11.5 - 14.5 %) 20.5 H Plt Count (130 - 400 /CUMM) 178 MPV (7.4 - 10.4 FL) 7.7 Gran % (42.2 - 75.2 %) 63.3 Lymphocytes % (20.5 - 51.1 %) 23.4 Monocytes % (1.7 - 9.3 %) 6.4 Eosinophils % (0 - 5 %) 6.5 H Basophils % (0.0 - 2.0 %) 0.4 Absolute Granulocytes (1.4 - 6.5 /CUMM) 3.4 Absolute Lymphocytes (1.2 - 3.4 /CUMM) 1.2 Absolute Monocytes (0.10 - 0.60 /CUMM) 0.3 Absolute Eosinophils (0.0 - 0.7 /CUMM) 0.3 Absolute Basophils (0.0 - 0.2 /CUMM) 0 03/21 03/21 1802 1420 Chemistry Sodium (137 - 145 mmol/L) 139 Potassium (3.5 - 5.1 mmol/L) 4.2 Chloride (98 - 107 mmol/L) 99 Carbon Dioxide (22 - 30 mmol/L) 29 Anion Gap (5 - 16) 10 BUN (9 - 20 mg/dL) 46 H Creatinine (0.7 - 1.2 mg/dL) 1.5 H Estimated GFR (>60 ml/min) 44 L BUN/Creatinine Ratio (7 - 25 %) 30.7 H Glucose (65 - 99 mg/dL) 139 H Calcium (8.4 - 10.2 mg/dL) 9.4 Total Bilirubin (0.2 - 1.3 mg/dL) 0.6 AST (17 - 59 U/L) 15 L ALT (21 - 72 U/L) 19 L Alkaline Phosphatase (< 127 U/L) 85 Troponin I (<0.11 ng/ml) 0.03 0.02 Total Protein (6.3 - 8.2 g/dL) 6.2 L Albumin (3.5 - 5.0 g/dL) 3.5 Globulin (1.9 - 4.2 gm/dL) 2.7 Albumin/Globulin Ratio (1.1 - 2.2 %) 1.3 Hematology CBC w Diff NO MAN DIFF REQ NO MAN DIFF REQ WBC (4.8 - 10.8 /CUMM) 7.5 8.6 RBC (4.70 - 6.10 /CUMM) 3.28 L 3.43 L Hgb (14.0 - 18.0 G/DL) 8.9 L 9.3 L Hct (42 - 52 %) 27.7 L 29.2 L MCV (80.0 - 94.0 FL) 84.6 85.2 MCH (27.0 - 31.0 PG) 27.0 27.1 MCHC (33.0 - 37.0 G/DL) 32.0 L 31.9 L RDW (11.5 - 14.5 %) 20.7 H 20.5 H Plt Count (130 - 400 /CUMM) 247 263 MPV (7.4 - 10.4 FL) 7.7 7.8 Gran % (42.2 - 75.2 %) 72.2 81.7 H Lymphocytes % (20.5 - 51.1 %) 18.6 L 13.3 L Monocytes % (1.7 - 9.3 %) 6.7 4.3 Eosinophils % (0 - 5 %) 2.2 0.6 Basophils % (0.0 - 2.0 %) 0.3 0.1 Absolute Granulocytes (1.4 - 6.5 /CUMM) 5.4 7.0 H Absolute Lymphocytes (1.2 - 3.4 /CUMM) 1.4 1.1 L Absolute Monocytes (0.10 - 0.60 /CUMM) 0.5 0.4 Absolute Eosinophils (0.0 - 0.7 /CUMM) 0.2 0 Absolute Basophils (0.0 - 0.2 /CUMM) 0 0 Diagnostic Data CXR Results 02/22/2018: 1. Enlarged heart. 2. No acute pulmonary disease. Assessment/Plan Assessment/Plan 87-o-w-m w/ hx of COPD, IRMA, HTN, HLD, CKD, ch anemia, GERD, HH, RA, & CAD (s/p remote NV w/ stenting of the culprit vessel & subsequent CABG 4), permanent AF on NOAC and is s/p ppm for bradycardia (07/22/2016) who presented on 03/21/2018 w/ c/o lightheadedness, dizziness, & weakness & the discovery of orthostatic hypotension. He improved w/ volume resuscitation, but had a drop in his H/H w/ a contribution from dilution. Recommendations: * Given his history of CAD, would consider transfusion of PRBCs to get his hemoglobin at or above 8.0 g/dl. * Continue on his outpatient cardiac regimen, but consider cutting back on his metoprolol tartrate from 50 mg twice daily to 25 mg twice daily. * We can interrogate his device at his next office visit to determine if the ventricular response to his atrial fibrillation is adequately controlled. * Will also determine if he continues to have orthostatic hypotension which may require further education, mechanical support, and possibly medications to specifically treat this condition (fludrocortisone, midodrine, etc.). Further recommendation will follow, Thank you. Consult Acknowledgment - Thank you for your consult request. - Thank you for your consult request.
[2018-03-22] MEDS ORDERED: METOPROLOL TART25 M1 PO (19:31)
[2018-03-22 22:23] VITALS: BP 130/54
[2018-03-23 01:05] VITALS: BP 128/56
[2018-03-23 05:08] LABS: ABSOLUTE BASOPHIL COUNT 0 /CUMM (0.0-0.2); ABSOLUTE EOSINOPHIL COUNT 0.4 /CUMM (0.0-0.7); ABSOLUTE GRANULOCYTE CT 4.5 /CUMM (1.4-6.5); ABSOLUTE LYMPH COUNT 1.3 /CUMM (1.2-3.4); ABSOLUTE MONOCYTE COUNT 0.5 /CUMM (0.10-0.60); BASOPHIL % 0.4 % (0.0-2.0); EOSINOPHIL % 6.4 % (0-5); GRANULOCYTE % 65.7 % (42.2-75.2); HEMATOCRIT 28.4 % (42-52); MEAN CORPUSCULAR HGB 26.7 PG (27.0-31.0); MEAN CORPUSCULAR HGB CONC 31.5 G/DL (33.0-37.0); MEAN CORPUSCULAR VOLUME 84.8 FL (80.0-94.0); MEAN PLATELET VOLUME 7.4 FL (7.4-10.4); PLATELET COUNT 192 /CUMM (130-400); RBC DISTRIBUTION WIDTH 19.6 % (11.5-14.5); RED BLOOD CELL CT 3.34 /CUMM (4.70-6.10); WHITE BLOOD CELL COUNT 6.9 /CUMM (4.8-10.8)
[2018-03-23 06:57] VITALS: BP 126/56
--- NOTE | 2018-03-23 07:27 | PN-Observation ---
Observation Note Observation Note _ I have personally examined FLAKITO ARCINIEGA. him disposition is uncertain at this time. Before a determination can be made, he requires continued observation for the following reasons [dizziness]. Assessment/Plan Medical Assessment: 86 year old M PMH of COPD, IRMA (on 4 L O2 at night), HTN, HLIP, CKD, chronic anemia, GERD, RA, prostate carcinoma, and CAD (s/p remote PA s/p stenting of the culprit vessel and subsequent CABG 4), chronic Afib s/p pacemaker on xeralto, rheumatoid arthritis, hiatal hernia presented with lightheadedness and unsteady gait DischargeD 1 week ago, received PRBC in last admission, had upper and lower GI endoscopy. Assessment and plan 1. Dizziness/hypotension/unstable gait. Patient denies any further episodes of dizziness. Patient was able to walk with a physical therapist today. Patient hemoglobin dropped. This can be secondary due to dilutional. Patient got 3 L of IV fluids last night due to [id number]. Pt blood pressure improved. Patient seen by Dr. Long who suggested blood transfusion to keep the hemoglobin more than 8. Patient agreed with the plan and We he was given 1 unit of blood transfusion. Post transfusion hemoglobin 8.9. Patient will be sent home assuming all his cardiac medication except metoprolol dose decreased from 50 twice a day to 25 twice a day. Patient was also given blood pressure log. He was educated about measuring his blood pressure every day and if the systolic and diastolic goes below 90/50 respectively advised to hold the blood pressure medication and call his primary care physician. Both the patient had his understands the above mentioned. Code-full code Diet-heart healthy diet DVT prophylaxis-alps Problem List: 1. Dizziness Subjective Follow-up For: Dizziness Subjective: Patient seen and examined at bedside. no overnight events. Denies further episodes of dizziness, weakness. Patient is eager to go home today. Review of Systems Constitutional: Reports: no symptoms, see HPI. Objective Last 24 Hrs of Vital Signs/I&O Vital Signs Date Time Temp Pulse Resp B/P B/P Pulse O2 O2 Flow FiO2 Mean Ox Delivery Rate 03/23 817 68 122/56 03/23 0817 68 122/56 03/23 0657 98.4 70 20 126/56 94 03/23 0105 98.1 77 20 128/56 94 03/22 2223 98.6 62 20 130/54 97 Room Air 03/22 2103 62 130/53 03/22 2059 62 130/54 Intake & Output 03/23 1600 03/23 0800 03/23 0000 Intake Total 300 Output Total Balance 300 Intake, IV 300 Physical Exam General Appearance: Alert, Oriented X3, Cooperative, No Acute Distress Cardiovascular: Regular Rate, Normal S1, Normal S2, No Murmurs Lungs: Clear to Auscultation, Normal Air Movement Abdomen: Soft, No Tenderness, No Hepatospenomegaly Neurological: Normal Speech, Strength at 5/5 X4 Ext, Normal Tone, Sensation Intact Extremities: No Cyanosis, No Edema, Normal Pulses Current Medications: Current Medications Sig/Latesha Start time Last Medication Dose Route Stop Time Status Admin Folic Acid 1 MG DAILY 03/22 0900 DCD 03/23 PO 0818 Furosemide 40 MG DAILY 03/22 193 DCD PO Losartan Potassium 25 MG DAILY 03/22 193 DCD PO Metoprolol Tartrate 25 MG BID 03/22 2100 DCD PO Omeprazole 40 MG DAILY AC 03/21 2330 DCD 03/23 PO 0534 Pravastatin Sodium 10 MG 1700 03/22 1700 DCD 03/22 PO 1819 Last 24 Hrs of Labs/Mics: Laboratory Tests 03/23/18 0730: CBC w Diff NO MAN DIFF REQ, RBC 3.35 L, MCV 85.1, MCH 26.9 L, MCHC 31.7 L, RDW 19.8 H, MPV 7.8, Gran % 64.4, Lymphocytes % 21.9, Monocytes % 7.1, Eosinophils % 6.4 H, Basophils % 0.2, Absolute Granulocytes 3.6, Absolute Lymphocytes 1.2, Absolute Monocytes 0.4, Absolute Eosinophils 0.4, Absolute Basophils 0 03/23/18 0425: CBC w Diff NO MAN DIFF REQ, RBC 3.34 L, MCV 84.8, MCH 26.7 L, MCHC 31.5 L, RDW 19.6 H, MPV 7.4, Gran % 65.7, Lymphocytes % 19.6 L, Monocytes % 7.9, Eosinophils % 6.4 H, Basophils % 0.4, Absolute Granulocytes 4.5, Absolute Lymphocytes 1.3, Absolute Monocytes 0.5, Absolute Eosinophils 0.4, Absolute Basophils 0 03/22/18 1800: CBC w Diff NO MAN DIFF REQ, RBC 2.95 L, MCV 86.2, MCH 26.6 L, MCHC 30.8 L, RDW 21.1 H, MPV 7.6, Gran % 66.7, Lymphocytes % 19.8 L, Monocytes % 7.0, Eosinophils % 6.3 H, Basophils % 0.2, Absolute Granulocytes 4.4, Absolute Lymphocytes 1.3, Absolute Monocytes 0.5, Absolute Eosinophils 0.4, Absolute Basophils 0
[2018-03-23 08:17] VITALS: BP 122/56
[2018-03-23 10:01] LABS: ABSOLUTE BASOPHIL COUNT 0 /CUMM (0.0-0.2); ABSOLUTE EOSINOPHIL COUNT 0.4 /CUMM (0.0-0.7); ABSOLUTE GRANULOCYTE CT 3.6 /CUMM (1.4-6.5); ABSOLUTE LYMPH COUNT 1.2 /CUMM (1.2-3.4); ABSOLUTE MONOCYTE COUNT 0.4 /CUMM (0.10-0.60); BASOPHIL % 0.2 % (0.0-2.0); EOSINOPHIL % 6.4 % (0-5); GRANULOCYTE % 64.4 % (42.2-75.2); HEMATOCRIT 28.5 % (42-52); MEAN CORPUSCULAR HGB 26.9 PG (27.0-31.0); MEAN CORPUSCULAR HGB CONC 31.7 G/DL (33.0-37.0); MEAN CORPUSCULAR VOLUME 85.1 FL (80.0-94.0); MEAN PLATELET VOLUME 7.8 FL (7.4-10.4); PLATELET COUNT 184 /CUMM (130-400); RBC DISTRIBUTION WIDTH 19.8 % (11.5-14.5); RED BLOOD CELL CT 3.35 /CUMM (4.70-6.10); WHITE BLOOD CELL COUNT 5.6 /CUMM (4.8-10.8)
[2018-03-23] MEDS ORDERED: METOPROLOL TART25 M1 PO (10:29)
--- NOTE | 2018-03-23 11:43 | PN- Att Addend ---
Attending Addendum Attending Brief Note Patient feeling better, he stayed overnight after cardiology recommended another transfusion. Patient feels a little stronger, his collar is improved. His vital signs are stable his BP is okay today. She will be discharged he is to monitor his blood pressure is his low to call for instructions to hold the medication for patient to make an appointment with the charrer, to follow with a senior court office assistant and myself. See the CMR. 24 TOTALS 03/23 0000 03/22 0000 Intake Total 1500 Output Total 575 Balance 925 Intake, IV 1100 Intake, Oral 400 Output, Urine 575 Patient 167 lb Weight Weight Reported by Patient Measurement Method Current Medications Sig/Latesha Start time Last Medication Dose Route Stop Time Status Admin Folic Acid 1 MG DAILY 03/22 0900 AC 03/23 PO 0818 Furosemide 40 MG DAILY 03/22 193 AC PO Losartan Potassium 25 MG DAILY 03/22 193 AC PO Metoprolol Tartrate 25 MG BID 03/22 2100 AC PO Omeprazole 40 MG DAILY AC 03/21 2330 AC 03/23 PO 0534 Pravastatin Sodium 10 MG 1700 03/22 1700 AC 03/22 PO 1819 Laboratory Tests 03/23/18 0730: CBC w Diff NO MAN DIFF REQ, RBC 3.35 L, MCV 85.1, MCH 26.9 L, MCHC 31.7 L, RDW 19.8 H, MPV 7.8, Gran % 64.4, Lymphocytes % 21.9, Monocytes % 7.1, Eosinophils % 6.4 H, Basophils % 0.2, Absolute Granulocytes 3.6, Absolute Lymphocytes 1.2, Absolute Monocytes 0.4, Absolute Eosinophils 0.4, Absolute Basophils 0 03/23/18 0425: CBC w Diff NO MAN DIFF REQ, RBC 3.34 L, MCV 84.8, MCH 26.7 L, MCHC 31.5 L, RDW 19.6 H, MPV 7.4, Gran % 65.7, Lymphocytes % 19.6 L, Monocytes % 7.9, Eosinophils % 6.4 H, Basophils % 0.4, Absolute Granulocytes 4.5, Absolute Lymphocytes 1.3, Absolute Monocytes 0.5, Absolute Eosinophils 0.4, Absolute Basophils 0 03/22/18 1800: CBC w Diff NO MAN DIFF REQ, RBC 2.95 L, MCV 86.2, MCH 26.6 L, MCHC 30.8 L, RDW 21.1 H, MPV 7.6, Gran % 66.7, Lymphocytes % 19.8 L, Monocytes % 7.0, Eosinophils % 6.3 H, Basophils % 0.2, Absolute Granulocytes 4.4, Absolute Lymphocytes 1.3, Absolute Monocytes 0.5, Absolute Eosinophils 0.4, Absolute Basophils 0 03/22/18 0600: Urine Color YEL, Urine Clarity HAZY H, Urine pH 6.5, Ur Specific [place] 1.015, Urine Protein NEG, Urine Ketones NEG, Urine Nitrite POS H, Urine Bilirubin NEG, Urine Urobilinogen 0.2, Ur Leukocyte Esterase SMALL H, Ur Microscopic SEDIMENT EXAMINED, Urine WBC 50-75 H, Urine Bacteria MANY H, Urine Mucus RARE, Urine Hemoglobin NEG, Urine Glucose NEG 03/22/18 0555: Anion Gap 12, Estimated GFR 44 L, BUN/Creatinine Ratio 30.7 H, Troponin I 0.03 , CBC w Diff NO MAN DIFF REQ, RBC 2.76 L, MCV 85.0, MCH 27.1, MCHC 31.9 L, RDW 20.5 H, MPV 7.7, Gran % 63.3, Lymphocytes % 23.4, Monocytes % 6.4, Eosinophils % 6.5 H, Basophils % 0.4, Absolute Granulocytes 3.4, Absolute Lymphocytes 1.2, Absolute Monocytes 0.3, Absolute Eosinophils 0.3, Absolute Basophils 0 03/22/18 0200: Troponin I Cancelled 03/21/18 1802: Troponin I 0.03, CBC w Diff NO MAN DIFF REQ, RBC 3.28 L, MCV 84.6, MCH 27.0, MCHC 32.0 L, RDW 20.7 H, MPV 7.7, Gran % 72.2, Lymphocytes % 18.6 L, Monocytes % 6.7, Eosinophils % 2.2, Basophils % 0.3, Absolute Granulocytes 5.4, Absolute Lymphocytes 1.4, Absolute Monocytes 0.5, Absolute Eosinophils 0.2, Absolute Basophils 0 03/21/18 1420: Anion Gap 10, Estimated GFR 44 L, BUN/Creatinine Ratio 30.7 H, Glucose 139 H, Calcium 9.4, Total Bilirubin 0.6, AST 15 L, ALT 19 L, Alkaline Phosphatase 85, Troponin I 0.02, Total Protein 6.2 L, Albumin 3.5, Globulin 2.7, Albumin/ Globulin Ratio 1.3, CBC w Diff NO MAN DIFF REQ, RBC 3.43 L, MCV 85.2, MCH 27.1, MCHC 31.9 L, RDW 20.5 H, MPV 7.8, Gran % 81.7 H, Lymphocytes % 13.3 L, Monocytes % 4.3, Eosinophils % 0.6, Basophils % 0.1, Absolute Granulocytes 7.0 H, Absolute Lymphocytes 1.1 L, Absolute Monocytes 0.4, Absolute Eosinophils 0, Absolute Basophils 0 Vital Signs Date Time Temp Pulse Resp B/P B/P Pulse O2 O2 Flow FiO2 Mean Ox Delivery Rate 03/23 0817 68 122/56 03/23 0817 68 122/56 03/23 0657 98.4 70 20 126/56 94 03/23 0105 98.1 77 20 128/56 94 03/22 2223 98.6 62 20 130/54 97 Room Air 03/22 2103 62 130/53 03/22 2059 62 130/54 03/22 1513 98.1 64 20 110/58 96 Room Air 03/22 1218 Room Air Room Air
== END 2018-03-23 11:47 | disposition home health service (06) ==
LOC: ERH 13:43 → ERHI 19:26 → 2NB 19:26 → ENRESERV 20:20 → EDBEDREQTM 21:29 → ENTRNSPT 22:08 → 2NB 22:37 → EDTRNSPT 22:44 → EDTRNSPTSTS 22:44 → CMPTRNSPT 03-22 07:27 → ENPENDDIS 03-23 10:09 → ENTRNSPT 03-23 11:38 → EDTRNSPTSTS 03-23 11:39 → EDTRNSPT 03-23 11:39 → 2NB 03-23 11:47 → CMPTRNSPT 03-23 11:58
PROVIDERS: Emergency Medicine; Internal Medicine Interventional Cardiology; Student in an Organized Health Care Education/Training Program
DX: I95.1 Orthostatic hypotension (principal); J44.9 Chronic obstructive pulmonary disease, unspecified; G47.33 Obstructive sleep apnea (adult) (pediatric); I12.9 Hypertensive chronic kidney disease with stage 1 through stage 4 chronic kidney disease, or unspecified chronic kidney disease; N18.9 Chronic kidney disease, unspecified; D64.9 Anemia, unspecified; K21.9 Gastro-esophageal reflux disease without esophagitis; M06.9 Rheumatoid arthritis, unspecified; Z85.46 Personal history of malignant neoplasm of prostate; I25.10 Atherosclerotic heart disease of native coronary artery without angina pectoris; Z95.5 Presence of coronary angioplasty implant and graft; Z95.1 Presence of aortocoronary bypass graft; I48.2 Chronic atrial fibrillation; Z79.01 Long term (current) use of anticoagulants; Z95.0 Presence of cardiac pacemaker; K59.00 Constipation, unspecified; R26.9 Unspecified abnormalities of gait and mobility; R42 Dizziness and giddiness; I25.2 Old myocardial infarction
CPT/HCPCS: 36415; 36592; 81001; 82436; 86920; 93005; 93010; 97116-GP; 97161-GP; G0378; G8978-GP; G8979-GP; G8980-GP; J3490; P9016